=== PATIENT | female | born 1945 | race Caucasian/White ===

== ENCOUNTER 2017-01-24 14:05 | Emergency (ER) | payer MEDICARE, OTHER ==
[2017-01-24 14:19] VITALS: RESP 16; TEMP 98.3
[2017-01-24] MEDS ORDERED: SODIUM CHLORIDE 0.9% 1,000 ML IV STA (14:24)
[2017-01-24] MEDS ORDERED: RX INFO: IV CONTRAST WAS GIVEN 1 EACH MISC MISCELLANE PRN (14:24)
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
[2017-01-24 14:59] LABS: Basophils % (A) 1 %; CH 30.1; CHCM 31.8; Eosinophils # (A) 0.1 k/uL (0-0.7); Eosinophils % (A) 2 %; HCT 39.7 % (34.0-46.0); HDW 2.25; HGB 12.8 gm/dL (11.4-16.0); Luc # (Auto) 0.12; Luc % (Auto) 2; Lymphocytes # (A) 0.9 k/uL (1.0-4.8); Lymphocytes % (A) 12 %; MCH 30.7 pg (25.0-35.0); MCHC 32.3 g/dL (31.0-37.0); Mean Platelet Volume 6.9; Monocytes # (A) 0.3 k/uL (0-1.0); Monocytes % (A) 5 %; Neutrophils # (A) 5.6 k/uL (1.3-7.7); Neutrophils % (A) 79 %; RBC 4.18 m/uL (3.80-5.40); RDW 13.9 % (11.5-15.5); WBC (Perox) 7.12
[2017-01-24 15:08] LABS: Partial Thromboplastin Time 23.2 sec (22.0-30.0); Prothrombin Time 10.3 sec (9.0-12.0)
[2017-01-24 15:15] LABS: Appearance,Urine Cloudy (Clear); Bacteria,Urine Few /hpf; Bilirubin,Urine Negative (Negative); Glucose,Urine (UA) Negative (Negative); Ketones,Urine Negative (Negative); Leukocyte Esterase,Urine Large (Negative); Mucus,Urine Rare /hpf; Nitrite,Urine Positive (Negative); Particle Count 14686; Protein,Urine 1+ (Negative); RBC,Urine 1 /hpf (0-5); Specific Gravity,Urine 1.012 (1.001-1.035); Squamous Epithelial Cell,Urine 1 /hpf (0-4); UA Billing (MACRO vs. MICRO) MICRO; Urobilinogen,Urine <2.0 mg/dL (<2.0); WBC,Urine 36 /hpf (0-5)
[2017-01-24 15:19] LABS: ALT 33 U/L (9-52); AST 19 U/L (14-36); Alkaline Phosphatase 64 U/L (38-126); Anion Gap 13 mmol/L; Blood Urea Nitrogen 17 mg/dL (7-17); Calcium 9.5 mg/dL (8.4-10.2); Carbon Dioxide 25 mmol/L (22-30); Chloride 102 mmol/L (98-107); Glucose 158 mg/dL (74-99); Non-African American GFR(MDRD) >60 (>60 ml/min/1.73 sqM); Potassium 4.3 mmol/L (3.5-5.1); Sodium 140 mmol/L (137-145); Total Bilirubin 0.6 mg/dL (0.2-1.3); Total Protein 7.1 g/dL (6.3-8.2)
[2017-01-24 16:15] VITALS: BP 154/72; PULSE 98
[2017-01-24] MEDS ORDERED: HYDROmorphone 1 MG/ML 1 ML SYRINGE IVP STA (16:15)
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
== END 2017-01-24 16:38 | disposition home or self-care (01) ==
LOC: EC 14:05
DX: S20.02XA Contusion of left breast, initial encounter (principal); E11.9 Type 2 diabetes mellitus without complications; E78.5 Hyperlipidemia, unspecified; I10 Essential (primary) hypertension; Z88.0 Allergy status to penicillin; Z79.82 Long term (current) use of aspirin; Z79.84 Long term (current) use of oral hypoglycemic drugs; Z79.899 Other long term (current) drug therapy; V48.5XXA Car driver injured in noncollision transport accident in traffic accident, initial encounter; Y92.410 Unspecified street and highway as the place of occurrence of the external cause
CPT/HCPCS: 99284; 96374; 96361; 36415; 86900; 86901; 80053; 85025; 85610; 85730; 86850; 81001; 87086; 87077; 87186; 71260; 74177; J1170; Q9967

== ENCOUNTER → 2017-11-02 | Outpatient (CLI) | payer MEDICARE, OTHER ==
[2017-11-02 18:26] LABS: HCT 39.2 % (34.0-46.0); HGB 12.3 gm/dL (11.4-16.0); MCH 29.3 pg (25.0-35.0); MCHC 31.3 g/dL (31.0-37.0); MCV 93.8 fL (80.0-100.0); Mean Platelet Volume 6.8; Platelet Count 280 k/uL (150-450); RBC 4.18 m/uL (3.80-5.40); RDW 13.3 % (11.5-15.5)
[2017-11-02 18:29] LABS: ALT 38 U/L (9-52); AST 16 U/L (14-36); Albumin 3.9 g/dL (3.5-5.0); Alkaline Phosphatase 56 U/L (38-126); Anion Gap 8 mmol/L; Blood Urea Nitrogen 17 mg/dL (7-17); Calcium 10.2 mg/dL (8.4-10.2); Carbon Dioxide 32 mmol/L (22-30); Chloride 100 mmol/L (98-107); Glucose 123 mg/dL (74-99); Potassium 5.1 mmol/L (3.5-5.1); Sodium 140 mmol/L (137-145); Total Bilirubin 0.3 mg/dL (0.2-1.3); Total Protein 6.6 g/dL (6.3-8.2)
== END | disposition home or self-care (01) ==
LOC: LABWHC1 17:05
PROVIDERS: ATTEND Internal Medicine Interventional Cardiology
DX: I35.0 Nonrheumatic aortic (valve) stenosis (principal)
CPT/HCPCS: 36415; 80053; 83880; 85027

== ENCOUNTER 2017-11-09 05:44 | Day surgery (SDC) | payer MEDICARE, OTHER ==
[2017-11-04 08:53] VITALS: BMI 26.4
[2017-11-09] MEDS ORDERED: ATORVASTATIN 80 MG TAB PO STA (05:51)
[2017-11-09] MEDS ORDERED: NITROGLYCERIN SL TABS 0.4 MG TAB SUBLINGUAL PRN (05:51)
[2017-11-09] MEDS ORDERED: ALPRAZolam 0.25 MG TAB PO PRN ×2 (05:51→08:57)
[2017-11-09] MEDS ORDERED: SODIUM CHLORIDE 0.9% 1,000 ML in EMPTY BAG 1 BAG IV ONE (05:51)
[2017-11-09] MEDS ORDERED: ALPRAZolam 0.5 MG TAB PO PRN (05:51)
[2017-11-09] MEDS ORDERED: ASPIRIN 325 MG TAB PO STA (05:51)
[2017-11-09 06:34] VITALS: TEMP 98.5
[2017-11-09 06:39] LABS: Glucose,Whole Blood 168 mg/dL (75-99)
[2017-11-09] MEDS: BENZOCAINE SPRAY 1 CAN MUCOUS MEM ONE ×2 (06:55→07:02)
[2017-11-09] MEDS ORDERED: MIDAZOLAM 2 MG/2 ML VIAL ONE (06:55)
[2017-11-09] MEDS ORDERED: fentaNYL (PF) 50 MCG/ML 2 ML AMP ONE ×2 (06:55→08:01)
[2017-11-09] MEDS ORDERED: SODIUM CHLORIDE 0.9% 1,000 ML IV ONE (07:08)
[2017-11-09] MEDS: MIDAZOLAM 2 MG/2 ML VIAL IVP ONE ×2 (07:09→07:12)
[2017-11-09] MEDS ORDERED: fentaNYL (PF) 50 MCG/ML 2 ML AMP IVP ONE (07:09)
[2017-11-09] MEDS ORDERED: IV FLUID CONTINUATION 850 ML IV ONE (07:35)
[2017-11-09] MEDS ORDERED: LIDOCAINE 2% INJ 20 MG/ML SQ ONE (07:56)
[2017-11-09] MEDS ORDERED: fentaNYL (PF) 50 MCG/ML 2 ML AMP IV ONE (08:02)
[2017-11-09 08:27] LABS: O2 Sat Blood Gas 65.1 %; O2 Sat Blood Gas 66.4 %; O2 Sat Blood Gas 93.3 %
[2017-11-09] MEDS ORDERED: IOHEXOL 350 MG/ML 125ML BOTTLE INJ ONE (08:28)
[2017-11-09] MEDS ORDERED: RX INFO: IV CONTRAST WAS GIVEN 1 EACH MISC MISCELLANE PRN (08:57)
[2017-11-09] MEDS ORDERED: METOPROLOL SUCCINATE (ER) 50 MG TAB.ER.24H PO SCH (09:00)
[2017-11-09] MEDS ORDERED: SODIUM CHLORIDE 0.9% 1,000 ML IV SCH (09:00)
[2017-11-09] MEDS ORDERED: NON-FORMULARY DRUG (Cyanocobalamin (Vitamin B-12) [Vitamin B-12] 1,000 MCG) PO SCH (09:00)
[2017-11-09] MEDS ORDERED: CHOLECALCIFEROL 400 UNIT TAB PO SCH (09:00)
[2017-11-09] MEDS ORDERED: NON-FORMULARY DRUG (Omeprazole 20 MG) PO SCH (09:00)
[2017-11-09] MEDS ORDERED: NON-FORMULARY DRUG (Ubidecarenone [Co Q-10] 100 MG) PO SCH (09:00)
[2017-11-09] MEDS ORDERED: NON-FORMULARY DRUG (Sitagliptin 100 MG) PO SCH (09:00)
[2017-11-09] MEDS ORDERED: NON-FORMULARY DRUG (Aspirin Ec 325 MG) PO SCH (09:00)
[2017-11-09] MEDS ORDERED: LISINOPRIL 20 MG TAB PO SCH (09:00)
[2017-11-09] MEDS ORDERED: HYDROCHLOROTHIAZIDE 12.5 MG CAP PO SCH (09:00)
[2017-11-09] MEDS ORDERED: FERROUS SULFATE 325 MG TAB PO SCH (09:00)
[2017-11-09] MEDS ORDERED: NON-FORMULARY DRUG (Biotin [Biotin] 5,000 MCG) PO SCH (09:00)
--- NOTE | 2017-11-09 09:35 | ECHOT ---
TRANSESOPHAGEAL ECHOCARDIOGRAM INDICATION: Evaluation of aortic valve. PROCEDURE: Explained the procedure to the patient as well as the risks and the complications, blood pressure, heart rate, O2 saturation was monitored. The throat was sprayed with Cetacaine. She received 2 mg intravenous Versed and 25 mcg of intravenous fentanyl. After achieving moderate conscious sedated state, the probe was introduced in the esophagus without difficulty. Images were obtained. Following that, the probe was removed. There was no immediate complication. FINDINGS: Left atrial size is dilated. Left atrial appendage is normal. Left ventricular size and systolic function normal. The mitral valve revealed mild mitral annulus calcification. The aortic valve is a tricuspid valve, heavily calcified. By planimetry, the valve area is about 0.7 centimeter square. The tricuspid valve and pulmonic valve are normal. The descending thoracic aorta appears to be normal. No pericardial effusion was noted. Contrast bubble study revealed no evidence of shunting across the interatrial septum. Doppler pulse wave and color Doppler obtained revealed moderate mitral with mild tricuspid regurgitation. The peak gradient across the aortic valve was 41 mmHg with a mean of 25 mmHg. There was trace pulmonic regurgitation and mild aortic regurgitation. There was no shunting across the interatrial septum. CONCLUSION: 1. Dilated left atrium and normal appearance of left atrial appendage. 2. Normal left ventricular size and systolic function. 3. Tricuspid aortic valve, heavily calcified with a aortic valve area of 0.7 centimeter square and a mean gradient of 25 mmHg and mild aortic regurgitation. 4. Mitral annulus calcification with moderate mitral regurgitation. 5. Mild tricuspid regurgitation with trace pulmonic regurgitation. 6. No evidence of shunting across the interatrial septum. MMODL / IJN: [id number] /
--- NOTE | 2017-11-09 10:05 | CC ---
CARDIAC CATHETERIZATION REPORT Mrs. Quezada is a 72-year-old female with a history of hypertension, hyperlipidemia and diabetes mellitus, as well as history of aortic valve disease , who has been complaining of progressive symptoms of dyspnea on exertion with fatigue and in view of that recommendation was made regarding cardiac catheterization. The procedure as well as the risks and complications were discussed with the patient who is in full understanding and agreement. PROCEDURE: Patient was brought to the director of cath lab in a fasting semi-sedated state after receiving fentanyl and Benadryl and after achieving. Moderate conscious sedated state. Using Xylocaine anesthesia in the Seldinger technique, a 6-Tuvaluan sheath was introduced in the right femoral artery and an 8-[place] sheath, right femoral vein. Right heart catheterization was performed using [place]-Ky catheter. Multiple samples were obtained. Cardiac output by thermodilution was calculated. Following that, a selective right and left coronary angiography performed using 6-Tu[place]uan 4 bend right and left Jose D catheter. Multiple views of the coronary artery including hemiaxial views were obtained. Following that, a 6-Tu[place] tight pigtail catheter introduced in the left ventricle and a 30-degree DRIVER view of the left ventricle was obtained. Following that, the catheter and sheaths were removed. Hemostasis was obtained with deployment of an Angio-Seal in the right femoral artery and compression of the right femoral vein. There was no immediate complication. FINDINGS: FLUOROSCOPY: There was calcification involving the aortic valve. HEMODYNAMICS: Pulmonary artery systolic pressure of 36 with a diastolic of 14 and a mean of 25 mmHg. Pulmonary capillary wedge pressure A-wave of 14, V-wave of 20 with a mean of 14 mmHg. Right ventricular systolic pressure of 40 with an end- diastolic of 6 mmHg. Right atrium A-wave of 4, V-wave of 3 with a mean of 3 mmHg. Left ventricular end-diastolic pressure of 24 mmHg. Peak gradient across the aortic valve of 30 mmHg. Cardiac output by thermal 4.7 L/minute and by Chaparro 3.6 L/minute. Right atrium saturation 65%. Pulmonary artery saturation 66%. Femoral artery saturation of 93%. Aortic valve area calculated at 0.54. CORONARY: LEFT MAIN: This is a large size vessel bifurcating in left circumflex and left anterior descending artery. Left main coronary artery is without any significant obstructive coronary artery disease. LEFT ANTERIOR DESCENDING ARTERY: This is a large size vessel reaching toward the apex with a wraparound apex segment giving rise to a moderate small diagonal branch. Left anterior descending artery as well as branches have no evidence of obstructive coronary artery disease. LEFT CIRCUMFLEX: This is a nondominant vessel giving rise to 2 obtuse marginal branches. The left circumflex as well as branches have no evidence of obstructive coronary artery disease. RIGHT CORONARY ARTERY: This is a large dominant vessel bifurcating into PDA and posterolateral segment and branches. The right coronary artery as well as branches have no evidence of high-grade stenosis. LEFT VENTRICULOGRAM: Left ventriculogram is performed 30-degree DRIVER view and revealed normal left ventricular size and systolic function, ejection fraction 60%. There was 1 to 2+ mitral regurgitation. CONCLUSION: 1. Normal coronary arteries. 2. Severe aortic stenosis. RECOMMENDATION: In view of finding anatomy, I recommend proceed with evaluation for possible aortic valve replacement. Those findings and recommendations were discussed with the patient and her family who are in full understanding and agreement. Duration of procedure 35 minutes. MMODL / IJN: [id number] / JANETT
--- NOTE | 2017-11-09 10:08 | LTR ---
November 09, 2017 RE: Charu Pinedarmerhorn Dear Dr. Townsend: I had the opportunity to perform cardiac catheterization on Mrs. Quezada at [facility] on the 09 of November and a full copy of the procedure note will be forwarded to you. In brief, she was found to have no evidence of obstructive coronary artery disease with evidence of severe aortic stenosis. In view of that, I have recommend proceeding with evaluation for aortic valve replacement. I will keep you updated on her care. Thank you again for allowing me the opportunity to participate in her care. Please feel free to call for any questions. Sincerely yours, MD KERWIN MillerL / CAROLN: [id number] /
[2017-11-09 11:48] VITALS: RESP 18
[2017-11-09] MEDS ORDERED: NON-FORMULARY DRUG (Calcium Carbonate [Calcium] 1,200 MG) PO SCH (12:00)
[2017-11-09] MEDS ORDERED: CRANBERRY PO SCH (12:00)
[2017-11-09 12:06] LABS: Glucose,Whole Blood 189 mg/dL (75-99)
[2017-11-09 16:10] VITALS: BP 120/60; PULSE 80
[2017-11-09] MEDS ORDERED: ATORVASTATIN 40 MG TAB PO SCH (21:00)
== END 2017-11-09 15:00 | disposition home or self-care (01) ==
LOC: CATHCVL 05:44
PROVIDERS: ATTEND Internal Medicine Interventional Cardiology
DX: I08.3 Combined rheumatic disorders of mitral, aortic and tricuspid valves (principal); I10 Essential (primary) hypertension; E78.2 Mixed hyperlipidemia; E11.9 Type 2 diabetes mellitus without complications; Z79.84 Long term (current) use of oral hypoglycemic drugs; Z79.82 Long term (current) use of aspirin; Z79.899 Other long term (current) drug therapy; Z88.0 Allergy status to penicillin
CPT/HCPCS: 93312; 93320; 93325; 93460; 85018; 82810; C1760; C1769 ×3; C1894 ×2; J2001; J2250; J3010; Q9967

== ENCOUNTER 2018-02-03 15:49 | Emergency (ER) | payer MEDICARE, OTHER ==
[2018-02-03] MEDS ORDERED: SODIUM CHLORIDE 0.9% 500 ML IV STA (16:54)
[2018-02-03] MEDS ORDERED: ONDANSETRON 4 MG/2 ML VIAL IVP STA (16:54)
[2018-02-03 17:12] LABS: Basophils % (A) 0 %; Eosinophils # (A) 0.2 k/uL (0-0.7); Eosinophils % (A) 2 %; HCT 30.3 % (34.0-46.0); HGB 9.9 gm/dL (11.4-16.0); Lymphocytes % (A) 11 %; MCH 29.9 pg (25.0-35.0); MCHC 32.7 g/dL (31.0-37.0); MCV 91.4 fL (80.0-100.0); Mean Platelet Volume 6.7; Monocytes # (A) 0.5 k/uL (0-1.0); Monocytes % (A) 5 %; Neutrophils # (A) 7.1 k/uL (1.3-7.7); Neutrophils % (A) 80 %; Platelet Count 426 k/uL (150-450); RBC 3.31 m/uL (3.80-5.40); RDW 14.7 % (11.5-15.5); WBC 8.9 k/uL (3.8-10.6)
[2018-02-03 17:32] LABS: INR 1.1 (<1.2); Partial Thromboplastin Time 22.2 sec (22.0-30.0); Prothrombin Time 10.4 sec (9.0-12.0)
--- NOTE | 2018-02-03 17:48 | XR ---
EXAMINATION TYPE: XR KUB DATE OF EXAM: 02/03/2018 COMPARISON: NONE HISTORY: Vomiting TECHNIQUE: 2 views FINDINGS: There is no sign of intestinal obstruction or pneumoperitoneum. Fecal pattern is normal. Th ere is no sign of a mass. There are no pathologic calcifications over the kidneys. Lung bases are junito ar. There is a right hip prosthesis. IMPRESSION: Nonacute abdomen.
[2018-02-03] MEDS ORDERED: ACETAMINOPHEN TAB 500 MG TAB PO STA (17:53)
[2018-02-03 17:56] LABS: Appearance,Urine Clear (Clear); Bilirubin,Urine Negative (Negative); Blood,Urine Negative (Negative); Color,Urine Light Yellow; Glucose,Urine (UA) Negative (Negative); Ketones,Urine Negative (Negative); Leukocyte Esterase,Urine Negative (Negative); Nitrite,Urine Negative (Negative); Protein,Urine Negative (Negative); Specific Gravity,Urine 1.005 (1.001-1.035); Urobilinogen,Urine <2.0 mg/dL (<2.0)
[2018-02-03] MEDS ORDERED: SODIUM CHLORIDE 0.9% 1,000 ML IV SCH (18:15)
[2018-02-03 18:51] LABS: ALT 36 U/L (9-52); AST 17 U/L (14-36); Albumin 3.9 g/dL (3.5-5.0); Alkaline Phosphatase 73 U/L (38-126); Anion Gap 17 mmol/L; Blood Urea Nitrogen 18 mg/dL (7-17); Calcium 9.6 mg/dL (8.4-10.2); Carbon Dioxide 30 mmol/L (22-30); Chloride 93 mmol/L (98-107); Glucose 141 mg/dL (74-99); Potassium 4.3 mmol/L (3.5-5.1); Sodium 140 mmol/L (137-145); Total Bilirubin 0.4 mg/dL (0.2-1.3); Total Protein 6.6 g/dL (6.3-8.2)
--- NOTE | 2018-02-03 18:51 | ED ---
Nausea/Vomiting/Diarrhea HPI - General Chief complaint: Nausea/Vomiting/Diarrhea Stated complaint: Dark Stools Time Seen by Provider: 02/03/18 16:23 Source: patient Mode of arrival: ambulatory Limitations: no limitations - History of Present Illness Initial comments: Patient is a 72-year-old female presenting for nausea and vomiting. She states that she had open-heart surgery on January 31 at [facility]. She was discharged around February 01 and since that time, she has had intermittent nausea and vomiting. She denies any abdominal pain or urinary symptoms. However, she admits to slightly black diarrhea but she has been taking iron. She denies any chest pain or shortness of breath as well. - Related Data Home Medications Medication Instructions Recorded Confirmed Aspirin EC [Ecotrin] 325 mg PO DAILY 01/24/17 02/03/18 Atorvastatin [Lipitor] 40 mg PO HS 01/24/17 02/03/18 Omeprazole [PriLOSEC] 20 mg PO DAILY 01/24/17 02/03/18 metFORMIN HCL 1,000 mg PO BID 01/24/17 02/03/18 sitaGLIPtin [Januvia] 100 mg PO DAILY 01/24/17 02/03/18 Calcium Carbonate [Calcium] 1,200 mg PO DAILY@1200 11/04/17 02/03/18 Cholecalciferol [Vitamin D3] 400 unit PO DAILY 11/04/17 02/03/18 Cyanocobalamin (Vitamin B-12) 1,000 mcg PO DAILY 11/04/17 02/03/18 [Vitamin B-12] Ferrous Sulfate [Feosol] 325 mg PO AC-BID 11/04/17 02/03/18 Amiodarone [Cordarone] 200 mg PO DAILY 02/03/18 02/03/18 Ascorbic Acid [Vitamin C] 250 mg PO BID 02/03/18 02/03/18 Docusate [Colace] 100 mg PO BID 02/03/18 02/03/18 Furosemide [Lasix] 40 mg PO DAILY 02/03/18 02/03/18 L.acidoph,Paracasei, B.lactis 1 cap PO DAILY 02/03/18 02/03/18 [Probiotic] Metoprolol Tartrate [Lopressor] 25 mg PO BID 02/03/18 02/03/18 Potassium Chloride [Klor-Con 10] 10 meq PO DAILY 02/03/18 02/03/18 oxyCODONE HCL [Roxicodone] 5 mg PO Q4-6H PRN 02/03/18 02/03/18 Previous Rx's Medication Instructions Recorded Ondansetron Odt [Zofran Odt] 4 mg PO Q12HR PRN #10 tab 02/03/18 Allergies Allergy/AdvReac Type Severity Reaction Status Date / Time Penicillins Allergy Rash/Hives Verified 02/03/18 16:39 Review of Systems ROS Statement: Those systems with pertinent positive or pertinent negative responses have been documented in the HPI. Constitutional: Negative for chills, fatigue and fever. HENT: Negative for congestion. Respiratory: Negative for chest tightness, shortness of breath and wheezing. Cardiovascular: Negative for chest pain and palpitations. Gastrointestinal: Negative for abdominal pain. Positive for diarrhea, nausea and vomiting. Genitourinary: Negative for dysuria. Musculoskeletal: Negative for back pain, neck pain and neck stiffness. Skin: Negative for color change. Neurological: Negative for dizziness, speech difficulty, weakness and light- headedness. Psychiatric/Behavioral: Negative for agitation and confusion. The patient is not nervous/anxious. ROS Other: All systems not noted in ROS Statement are negative. Past Medical History Past Medical History: Coronary Artery Disease (CAD), Diabetes Mellitus, GERD/ Reflux, Hyperlipidemia, Hypertension, Osteoarthritis (OA) Additional Past Medical History / Comment(s): heart murmer, born with bicuspid aorta, diarrhea, "leaky bladder" History of Any Multi-Drug Resistant Organisms: None Reported Past Surgical History: Bladder Surgery, Cardiac Valve Replacement, Heart Catheterization, Hysterectomy, Joint Replacement, Tubal Ligation Additional Past Surgical History / Comment(s): rt hip replacement, HARJINDER, bladder suspension x 2, Past Anesthesia/Blood Transfusion Reactions: Previous Problems w/ Anesthesia, Motion Sickness Additional Past Anesthesia/Blood Transfusion Reaction / Comment(s): "long time coming out" Past Psychological History: Anxiety Smoking Status: Never smoker Past Alcohol Use History: None Reported Past Drug Use History: Unable to Obtain - Past Family History Father Family Medical History: Cancer Daughter(s) Family Medical History: Cancer General Exam - General Exam Comments Initial Comments: Physical Exam Constitutional: Pt is oriented to person, place, and time. Pt appears well- developed and well-nourished. No distress. HENT: Head: Normocephalic and atraumatic. Eyes: EOM are normal. Neck: Normal range of motion. Neck supple. Cardiovascular: Normal rate, regular rhythm, S1 normal, S2 normal and normal heart sounds. Exam reveals no gallop and no friction rub. No murmur heard. Pulmonary/Chest: Effort normal and breath sounds normal. No tachypnea and no bradypnea. No respiratory distress. No wheezes or rales noted. Abdominal: Soft. Bowel sounds are normal. Pt exhibits no shifting dullness, no distension, no pulsatile liver, no fluid wave, no abdominal bruit and no ascites. There is no tenderness. There is no rigidity, no rebound, no guarding, no tenderness at McBurney's point and negative Montero's sign. Musculoskeletal: Normal range of motion. Surgical incision on chest clean dry and intact Neurological: Pt is alert and oriented to person, place, and time. No cranial nerve deficit. Skin: Skin is warm and dry. No rash noted. Pt is not diaphoretic. No erythema. No pallor. Psychiatric: Pt has a normal mood and affect. Pt behavior is normal. Thought content normal. Limitations: no limitations Course Vital Signs 02/03/18 02/03/18 02/03/18 15:50 16:50 17:49 Temperature 97.7 F Pulse Rate 96 93 89 Respiratory 18 17 17 Rate Blood Pressure 140/82 134/89 129/67 O2 Sat by Pulse 98 99 98 Oximetry 02/03/18 02/03/18 18:47 20:11 Temperature Pulse Rate 85 90 Respiratory 17 18 Rate Blood Pressure 131/65 115/54 O2 Sat by Pulse 95 96 Oximetry - Reevaluation(s) Reevaluation #1: 02/03/18 19:46 Laboratory studies revealed serum magnesium was significantly low at 1.0 with QTC showed no increase. Additionally, lactic acid was 2.5 which the patient was given additional fluids. Patient has been unable to provide a urine sample but hemoglobin was noted to be stable at 9.9. Medical Decision Making - Medical Decision Making Initial laboratory studies revealed that lactic acid was 2.5. Therefore the patient was given 1 L of fluid and by mouth challenge. She was able to successfully eat a sandwich as well as a drink and repeat lactic acid was improved at 0.9. Additionally, EKG was performed and showed no prolongation of the QTC. Troponin was also noted to be less than 0.04. Patient states that she feels much better after treatment. Extensive discussion was had with disposition with the patient as well as her nephew who is a pharmacist. All parties agreed that because the patient was feeling better and lactic acid normalize, it may be safe to discharge the patient home. They were in agreement. Additionally, magnesium was noted to be low at 1.0 and the patient was given 2 g of magnesium. Case is discussed with Dr. Jara from [facility] after the initial blood work was resulted and he advised that based on those findings, there is no need to transfer the patient. Additionally, C. diff and stool cultures were ordered but unable to be obtained as the patient could not provide a stool sample.Explained all labs and diagnostic test results and that we will discharge the patient home and patient is to follow up with PCP in 1-2 days and return to the ED if symptoms worsen. Pt is agreeable to plan. - Lab Data Result diagrams: 02/03/18 16:42 02/03/18 18:40 Lab Results 02/03/18 02/03/18 02/03/18 Range/Units 16:42 16:42 16:42 WBC 8.9 (3.8-10.6) k/uL RBC 3.31 L (3.80-5.40) m/uL Hgb 9.9 L (11.4-16.0) gm/dL Hct 30.3 L (34.0-46.0) % MCV 91.4 (80.0-100.0) fL MCH 29.9 (25.0-35.0) pg MCHC 32.7 (31.0-37.0) g/dL RDW 14.7 (11.5-15.5) % Plt Count 426 (150-450) k/uL Neutrophils % 80 % Lymphocytes % 11 % Monocytes % 5 % Eosinophils % 2 % Basophils % 0 % Neutrophils # 7.1 (1.3-7.7) k/uL Lymphocytes # 1.0 (1.0-4.8) k/uL Monocytes # 0.5 (0-1.0) k/uL Eosinophils # 0.2 (0-0.7) k/uL Basophils # 0.0 (0-0.2) k/uL PT 10.4 (9.0-12.0) sec INR 1.1 (<1.2) APTT 22.2 (22.0-30.0) sec Sodium (137-145) mmol/L Potassium (3.5-5.1) mmol/L Chloride (98-107) mmol/L Carbon Dioxide (22-30) mmol/L Anion Gap mmol/L BUN (7-17) mg/dL Creatinine (0.52-1.04) mg/dL Est GFR (CKD-EPI)AfAm (>60 ml/min/1.73 sqM) Est GFR (CKD-EPI)NonAf (>60 ml/min/1.73 sqM) Glucose (74-99) mg/dL Lactic Ac Sepsis Rflx Plasma Lactic Acid Franklin (0.7-2.0) mmol/L Calcium (8.4-10.2) mg/dL Magnesium (1.6-2.3) mg/dL Total Bilirubin (0.2-1.3) mg/dL AST (14-36) U/L ALT (9-52) U/L Alkaline Phosphatase (38-126) U/L Troponin I (0.000-0.034) ng/mL Total Protein (6.3-8.2) g/dL Albumin (3.5-5.0) g/dL Lipase (23-300) U/L Urine Color Urine Appearance (Clear) Urine pH (5.0-8.0) Ur Specific [place] (1.001-1.035) Urine Protein (Negative) Urine Glucose (UA) (Negative) Urine Ketones (Negative) Urine Blood (Negative) Urine Nitrite (Negative) Urine Bilirubin (Negative) Urine Urobilinogen (<2.0) mg/dL Ur Leukocyte Esterase (Negative) Blood Type A Positive Blood Type Recheck No Antibody Screen NEGATIVE Spec Expiration Date 02/06/2018 - 234102/03/18 02/03/18 02/03/18 Range/Units 16:42 16:42 17:03 WBC (3.8-10.6) k/uL RBC (3.80-5.40) m/uL Hgb (11.4-16.0) gm/dL Hct (34.0-46.0) % MCV (80.0-100.0) fL MCH (25.0-35.0) pg MCHC (31.0-37.0) g/dL RDW (11.5-15.5) % Plt Count (150-450) k/uL Neutrophils % % Lymphocytes % % Monocytes % % Eosinophils % % Basophils % % Neutrophils # (1.3-7.7) k/uL Lymphocytes # (1.0-4.8) k/uL Monocytes # (0-1.0) k/uL Eosinophils # (0-0.7) k/uL Basophils # (0-0.2) k/uL PT (9.0-12.0) sec INR (<1.2) APTT (22.0-30.0) sec Sodium (137-145) mmol/L Potassium (3.5-5.1) mmol/L Chloride (98-107) mmol/L Carbon Dioxide (22-30) mmol/L Anion Gap mmol/L BUN (7-17) mg/dL Creatinine (0.52-1.04) mg/dL Est GFR (CKD-EPI)AfAm (>60 ml/min/1.73 sqM) Est GFR (CKD-EPI)NonAf (>60 ml/min/1.73 sqM) Glucose (74-99) mg/dL Lactic Ac Sepsis Rflx Plasma Lactic Acid Franklin 2.5 H* (0.7-2.0) mmol/L Calcium (8.4-10.2) mg/dL Magnesium 1.0 L* (1.6-2.3) mg/dL Total Bilirubin (0.2-1.3) mg/dL AST (14-36) U/L ALT (9-52) U/L Alkaline Phosphatase (38-126) U/L Troponin I 0.037 H* (0.000-0.034) ng/mL Total Protein (6.3-8.2) g/dL Albumin (3.5-5.0) g/dL Lipase 107 (23-300) U/L Urine Color Urine Appearance (Clear) Urine pH (5.0-8.0) Ur Specific [place] (1.001-1.035) Urine Protein (Negative) Urine Glucose (UA) (Negative) Urine Ketones (Negative) Urine Blood (Negative) Urine Nitrite (Negative) Urine Bilirubin (Negative) Urine Urobilinogen (<2.0) mg/dL Ur Leukocyte Esterase (Negative) Blood Type Blood Type Recheck Antibody Screen Spec Expiration Date 02/03/18 02/03/18 02/03/18 Range/Units 17:05 17:32 18:40 WBC (3.8-10.6) k/uL RBC (3.80-5.40) m/uL Hgb (11.4-16.0) gm/dL Hct (34.0-46.0) % MCV (80.0-100.0) fL MCH (25.0-35.0) pg MCHC (31.0-37.0) g/dL RDW (11.5-15.5) % Plt Count (150-450) k/uL Neutrophils % % Lymphocytes % % Monocytes % % Eosinophils % % Basophils % % Neutrophils # (1.3-7.7) k/uL Lymphocytes # (1.0-4.8) k/uL Monocytes # (0-1.0) k/uL Eosinophils # (0-0.7) k/uL Basophils # (0-0.2) k/uL PT (9.0-12.0) sec INR (<1.2) APTT (22.0-30.0) sec Sodium 140 (137-145) mmol/L Potassium 4.3 (3.5-5.1) mmol/L Chloride 93 L (98-107) mmol/L Carbon Dioxide 30 (22-30) mmol/L Anion Gap 17 mmol/L BUN 18 H (7-17) mg/dL Creatinine 0.76 (0.52-1.04) mg/dL Est GFR (CKD-EPI)AfAm >90 (>60 ml/min/1.73 sqM) Est GFR (CKD-EPI)NonAf 79 (>60 ml/min/1.73 sqM) Glucose 141 H (74-99) mg/dL Lactic Ac Sepsis Rflx Y Plasma Lactic Acid Franklin (0.7-2.0) mmol/L Calcium 9.6 (8.4-10.2) mg/dL Magnesium (1.6-2.3) mg/dL Total Bilirubin 0.4 (0.2-1.3) mg/dL AST 17 (14-36) U/L ALT 36 (9-52) U/L Alkaline Phosphatase 73 (38-126) U/L Troponin I (0.000-0.034) ng/mL Total Protein 6.6 (6.3-8.2) g/dL Albumin 3.9 (3.5-5.0) g/dL Lipase (23-300) U/L Urine Color Light Yellow Urine Appearance Clear (Clear) Urine pH 5.0 (5.0-8.0) Ur Specific [place] 1.005 (1.001-1.035) Urine Protein Negative (Negative) Urine Glucose (UA) Negative (Negative) Urine Ketones Negative (Negative) Urine Blood Negative (Negative) Urine Nitrite Negative (Negative) Urine Bilirubin Negative (Negative) Urine Urobilinogen <2.0 (<2.0) mg/dL Ur Leukocyte Esterase Negative (Negative) Blood Type Blood Type Recheck Antibody Screen Spec Expiration Date 02/03/18 Range/Units 21:05 WBC (3.8-10.6) k/uL RBC (3.80-5.40) m/uL Hgb (11.4-16.0) gm/dL Hct (34.0-46.0) % MCV (80.0-100.0) fL MCH (25.0-35.0) pg MCHC (31.0-37.0) g/dL RDW (11.5-15.5) % Plt Count (150-450) k/uL Neutrophils % % Lymphocytes % % Monocytes % % Eosinophils % % Basophils % % Neutrophils # (1.3-7.7) k/uL Lymphocytes # (1.0-4.8) k/uL Monocytes # (0-1.0) k/uL Eosinophils # (0-0.7) k/uL Basophils # (0-0.2) k/uL PT (9.0-12.0) sec INR (<1.2) APTT (22.0-30.0) sec Sodium (137-145) mmol/L Potassium (3.5-5.1) mmol/L Chloride (98-107) mmol/L Carbon Dioxide (22-30) mmol/L Anion Gap mmol/L BUN (7-17) mg/dL Creatinine (0.52-1.04) mg/dL Est GFR (CKD-EPI)AfAm (>60 ml/min/1.73 sqM) Est GFR (CKD-EPI)NonAf (>60 ml/min/1.73 sqM) Glucose (74-99) mg/dL Lactic Ac Sepsis Rflx Plasma Lactic Acid Franklin 0.9 (0.7-2.0) mmol/L Calcium (8.4-10.2) mg/dL Magnesium (1.6-2.3) mg/dL Total Bilirubin (0.2-1.3) mg/dL AST (14-36) U/L ALT (9-52) U/L Alkaline Phosphatase (38-126) U/L Troponin I (0.000-0.034) ng/mL Total Protein (6.3-8.2) g/dL Albumin (3.5-5.0) g/dL Lipase (23-300) U/L Urine Color Urine Appearance (Clear) Urine pH (5.0-8.0) Ur Specific [place] (1.001-1.035) Urine Protein (Negative) Urine Glucose (UA) (Negative) Urine Ketones (Negative) Urine Blood (Negative) Urine Nitrite (Negative) Urine Bilirubin (Negative) Urine Urobilinogen (<2.0) mg/dL Ur Leukocyte Esterase (Negative) Blood Type Blood Type Recheck Antibody Screen Spec Expiration Date - EKG Data EKG Comments: EKG showed normal sinus rhythm with a rate of 89 bpm, AR interval 158, QRS 80, QTC 450 Disposition Clinical Impression: Nausea and vomiting Disposition: HOME SELF-CARE Condition: Good Prescriptions: Ondansetron Odt [Zofran Odt] 4 mg PO Q12HR PRN #10 tab PRN Reason: Nausea Is patient prescribed a controlled substance at d/c from ED?: No Referrals: Grant Townsend MD [Primary Care Provider] - 1-2 days Tati Higgins MD [REFERRING] - 1-2 days Time of Disposition: 22:03
[2018-02-03] MEDS: MAGNESIUM SULFATE-D5W PMX 1 GM in DEXTROSE/WATER 1 100ML.BAG IVPB SCH ×2 (19:24→20:58)
[2018-02-03] MEDS ORDERED: SODIUM CHLORIDE 0.9% 500 ML IV ONE (19:41)
[2018-02-03 21:47] VITALS: RESP 18
[2018-02-03 22:28] VITALS: BP 112/54; PULSE 82; TEMP 97.4
== END 2018-02-03 22:28 | disposition home or self-care (01) ==
LOC: EC 15:49
DX: R11.2 Nausea with vomiting, unspecified (principal); R19.7 Diarrhea, unspecified; E83.42 Hypomagnesemia; I25.10 Atherosclerotic heart disease of native coronary artery without angina pectoris; E11.9 Type 2 diabetes mellitus without complications; K21.9 Gastro-esophageal reflux disease without esophagitis; E78.5 Hyperlipidemia, unspecified; I10 Essential (primary) hypertension; Z95.2 Presence of prosthetic heart valve; Z95.818 Presence of other cardiac implants and grafts; Z79.82 Long term (current) use of aspirin; Z79.84 Long term (current) use of oral hypoglycemic drugs; Z79.899 Other long term (current) drug therapy; Z88.0 Allergy status to penicillin; Z96.641 Presence of right artificial hip joint
CPT/HCPCS: 36415; 93005; 86900; 86901; 80053; 83605; 83690; 83735; 84484; 85025; 85610; 85730; 86850; 81003; 74018; 99284; 96365; 96366 ×2; 96375; 96361; J2405; J3475

== ENCOUNTER → 2018-08-16 | Outpatient (CLI) | payer MEDICARE, OTHER ==
[2018-08-17 04:59] LABS: Gliadin AB IgA, Unit <0.2 U/mL
== END | disposition home or self-care (01) ==
LOC: LABWHC1 15:44
PROVIDERS: ATTEND Internal Medicine Gastroenterology
DX: R19.4 Change in bowel habit (principal)
CPT/HCPCS: 36415; 83516

== ENCOUNTER 2020-11-20 20:47 | Inpatient (IN) | payer MEDICARE, OTHER ==
--- NOTE | 2020-11-20 21:07 | ED ---
General Adult HPI - General Chief complaint: Arrhythmia/Palpitations Stated complaint: SOB Time Seen by Provider: 11/20/20 20:58 Source: patient, family, RN notes reviewed Mode of arrival: ambulatory Limitations: no limitations - History of Present Illness Initial comments: Patient is a pleasant 75-year-old female presenting to the emergency Department with complaints of palpitations. Onset of symptoms was less than a week ago. Patient saw her doctor 3 days ago and was diagnosed with atrophic ablation. Patient was told it on Xarelto and amiodarone. Patient also had her metoprolol increased. Patient has continued palpitations and increased heart rate. Patient is now having some shortness of breath and tightness of her chest. Patient has noticed some mild edema. - Related Data Home Medications Medication Instructions Recorded Confirmed Aspirin EC [Ecotrin] 325 mg PO DAILY 01/24/17 02/03/18 Atorvastatin [Lipitor] 40 mg PO HS 01/24/17 02/03/18 Omeprazole [PriLOSEC] 20 mg PO DAILY 01/24/17 02/03/18 metFORMIN HCL 1,000 mg PO BID 01/24/17 02/03/18 sitaGLIPtin [Januvia] 100 mg PO DAILY 01/24/17 02/03/18 Calcium Carbonate [Calcium] 1,200 mg PO DAILY@1200 11/04/17 02/03/18 Cholecalciferol [Vitamin D3] 400 unit PO DAILY 11/04/17 02/03/18 Cyanocobalamin (Vitamin B-12) 1,000 mcg PO DAILY 11/04/17 02/03/18 [Vitamin B-12] Ferrous Sulfate [Feosol] 325 mg PO AC-BID 11/04/17 02/03/18 Amiodarone [Cordarone] 200 mg PO DAILY 02/03/18 02/03/18 Ascorbic Acid [Vitamin C] 250 mg PO BID 02/03/18 02/03/18 Docusate [Colace] 100 mg PO BID 02/03/18 02/03/18 Furosemide [Lasix] 40 mg PO DAILY 02/03/18 02/03/18 L.acidoph,Paracasei, B.lactis 1 cap PO DAILY 02/03/18 02/03/18 [Probiotic] Metoprolol Tartrate [Lopressor] 25 mg PO BID 02/03/18 02/03/18 Potassium Chloride [Klor-Con 10] 10 meq PO DAILY 02/03/18 02/03/18 oxyCODONE HCL [Roxicodone] 5 mg PO Q4-6H PRN 02/03/18 02/03/18 Previous Rx's Medication Instructions Recorded Ondansetron Odt [Zofran Odt] 4 mg PO Q12HR PRN #10 tab 02/03/18 Allergies Allergy/AdvReac Type Severity Reaction Status Date / Time Penicillins Allergy Rash/Hives Verified 11/20/20 20:53 Review of Systems ROS Statement: Those systems with pertinent positive or pertinent negative responses have been documented in the HPI. ROS Other: All systems not noted in ROS Statement are negative. Constitutional: Denies: fever Eyes: Denies: eye pain ENT: Denies: ear pain Respiratory: Reports: as per HPI, dyspnea. Denies: cough Cardiovascular: Reports: palpitations. Denies: chest pain Endocrine: Reports: fatigue Gastrointestinal: Denies: abdominal pain Genitourinary: Denies: dysuria Musculoskeletal: Denies: back pain Skin: Denies: rash Past Medical History Past Medical History: Atrial Fibrillation, Coronary Artery Disease (CAD), Diabetes Mellitus, GERD/Reflux, Hyperlipidemia, Hypertension, Osteoarthritis (OA) Additional Past Medical History / Comment(s): heart murmur, born with bicuspid aorta, diarrhea, "leaky bladder" History of Any Multi-Drug Resistant Organisms: None Reported Past Surgical History: Bladder Surgery, Cardiac Valve Replacement, Heart Catheterization, Hysterectomy, Joint Replacement, Tubal Ligation Additional Past Surgical History / Comment(s): rt hip replacement, HARJINDER, bladder suspension x 2, Past Anesthesia/Blood Transfusion Reactions: Previous Problems w/ Anesthesia, Motion Sickness Additional Past Anesthesia/Blood Transfusion Reaction / Comment(s): "long time coming out" Past Psychological History: Anxiety Past Alcohol Use History: None Reported Past Drug Use History: Unable to Obtain - Past Family History Father Family Medical History: Cancer Daughter(s) Family Medical History: Cancer General Exam Limitations: no limitations General appearance: alert, in no apparent distress Head exam: Present: normocephalic Eye exam: Present: normal appearance Respiratory exam: Present: normal lung sounds bilaterally Cardiovascular Exam: Present: tachycardia, irregular rhythm Expanded Peripheral pulses: 2+: Radial (R), Radial (L), Dorsalis Pedis (R), Dorsalis Pedis (L) GI/Abdominal exam: Present: soft. Absent: tenderness Extremities exam: Present: pedal edema (Trace bilateral). Absent: calf tenderness Neurological exam: Present: alert Psychiatric exam: Present: normal affect, normal mood Skin exam: Present: normal color Course Vital Signs 11/20/20 20:49 Temperature 98.0 F Pulse Rate 124 H Respiratory 18 Rate Blood Pressure 167/114 O2 Sat by Pulse 98 Oximetry EKG Findings - EKG Comments: EKG Findings:: Neuro complex tachycardia with a rate of 123. [place] 170. QRS 80. QT 3 or 4. QTC 435. Left axis. Septal Q waves. Lateral ST depression. Inferior T wave inversion. Medical Decision Making - Medical Decision Making Patient reevaluated and updated. Heart rate remains 120 5P remain magnesium is low and replacement has been ordered. Case was discussed with Dr. Leiva, who will admit covering for Dr. Townsend. - Lab Data Result diagrams: 11/20/20 21:25 11/20/20 21:25 Lab Results 11/20/20 11/20/20 11/20/20 Range/Units 21:25 21:25 21:25 WBC 8.1 (3.8-10.6) k/uL RBC 4.40 (3.80-5.40) m/uL Hgb 13.3 (11.4-16.0) gm/dL Hct 41.1 (34.0-46.0) % MCV 93.4 (80.0-100.0) fL MCH 30.2 (25.0-35.0) pg MCHC 32.3 (31.0-37.0) g/dL RDW 13.9 (11.5-15.5) % Plt Count 230 (150-450) k/uL MPV 7.1 Neutrophils % 76 % Lymphocytes % 16 % Monocytes % 5 % Eosinophils % 2 % Basophils % 1 % Neutrophils # 6.1 (1.3-7.7) k/uL Lymphocytes # 1.3 (1.0-4.8) k/uL Monocytes # 0.4 (0-1.0) k/uL Eosinophils # 0.2 (0-0.7) k/uL Basophils # 0.1 (0-0.2) k/uL PT 12.6 H (9.0-12.0) sec INR 1.2 H (<1.2) APTT 27.4 (22.0-30.0) sec Sodium 138 (137-145) mmol/L Potassium 4.7 (3.5-5.1) mmol/L Chloride 102 (98-107) mmol/L Carbon Dioxide 24 (22-30) mmol/L Anion Gap 12 mmol/L BUN 20 H (7-17) mg/dL Creatinine 0.76 (0.52-1.04) mg/dL Est GFR (CKD-EPI)AfAm 89 (>60 ml/min/1.73 sqM) Est GFR (CKD-EPI)NonAf 77 (>60 ml/min/1.73 sqM) Glucose 202 H (74-99) mg/dL Calcium 9.5 (8.4-10.2) mg/dL Magnesium 1.1 L (1.6-2.3) mg/dL Total Bilirubin 0.4 (0.2-1.3) mg/dL AST 102 H (14-36) U/L ALT 194 H (4-34) U/L Alkaline Phosphatase 73 (38-126) U/L Troponin I (0.000-0.034) ng/mL NT-Pro-B Natriuret Pep pg/mL Total Protein 7.1 (6.3-8.2) g/dL Albumin 4.3 (3.5-5.0) g/dL TSH 5.590 H (0.465-4.680) mIU/L Free T4 1.37 (0.78-2.19) ng/dL Free T3 pg/mL 3.0 (2.8-5.3) pg/ml 11/20/20 11/20/20 Range/Units 21:25 21:25 WBC (3.8-10.6) k/uL RBC (3.80-5.40) m/uL Hgb (11.4-16.0) gm/dL Hct (34.0-46.0) % MCV (80.0-100.0) fL MCH (25.0-35.0) pg MCHC (31.0-37.0) g/dL RDW (11.5-15.5) % Plt Count (150-450) k/uL MPV Neutrophils % % Lymphocytes % % Monocytes % % Eosinophils % % Basophils % % Neutrophils # (1.3-7.7) k/uL Lymphocytes # (1.0-4.8) k/uL Monocytes # (0-1.0) k/uL Eosinophils # (0-0.7) k/uL Basophils # (0-0.2) k/uL PT (9.0-12.0) sec INR (<1.2) APTT (22.0-30.0) sec Sodium (137-145) mmol/L Potassium (3.5-5.1) mmol/L Chloride (98-107) mmol/L Carbon Dioxide (22-30) mmol/L Anion Gap mmol/L BUN (7-17) mg/dL Creatinine (0.52-1.04) mg/dL Est GFR (CKD-EPI)AfAm (>60 ml/min/1.73 sqM) Est GFR (CKD-EPI)NonAf (>60 ml/min/1.73 sqM) Glucose (74-99) mg/dL Calcium (8.4-10.2) mg/dL Magnesium (1.6-2.3) mg/dL Total Bilirubin (0.2-1.3) mg/dL AST (14-36) U/L ALT (4-34) U/L Alkaline Phosphatase (38-126) U/L Troponin I <0.012 (0.000-0.034) ng/mL NT-Pro-B Natriuret Pep 4010 pg/mL Total Protein (6.3-8.2) g/dL Albumin (3.5-5.0) g/dL TSH (0.465-4.680) mIU/L Free T4 (0.78-2.19) ng/dL Free T3 pg/mL (2.8-5.3) pg/ml - Radiology Data Radiology results: image reviewed (chest x-ray shows no acute abnormality) Critical Care Time Critical Care Time: Yes Total Critical Care Time: 33 Disposition Clinical Impression: Atrial fibrillation with RVR, Hypomagnesemia Disposition: ADMITTED IP TO THIS [facility] Is patient prescribed a controlled substance at d/c from ED?: No Referrals: Grant Townsend MD [Primary Care Provider] - 1-2 days Decision Time: 22:28
[2020-11-20] MEDS ORDERED: DILTIAZEM 125 MG in SODIUM CHLORIDE 0.9% 100 ML IV SCH (21:30)
[2020-11-20 21:32] LABS: Basophils # (A) 0.1 k/uL (0-0.2); Basophils % (A) 1 %; Eosinophils # (A) 0.2 k/uL (0-0.7); Eosinophils % (A) 2 %; HCT 41.1 % (34.0-46.0); HGB 13.3 gm/dL (11.4-16.0); Lymphocytes # (A) 1.3 k/uL (1.0-4.8); Lymphocytes % (A) 16 %; MCH 30.2 pg (25.0-35.0); MCHC 32.3 g/dL (31.0-37.0); MCV 93.4 fL (80.0-100.0); Mean Platelet Volume 7.1; Monocytes # (A) 0.4 k/uL (0-1.0); Monocytes % (A) 5 %; Neutrophils # (A) 6.1 k/uL (1.3-7.7); Neutrophils % (A) 76 %; Platelet Count 230 k/uL (150-450); RDW 13.9 % (11.5-15.5); WBC 8.1 k/uL (3.8-10.6)
--- NOTE | 2020-11-20 21:33 | XR ---
EXAMINATION TYPE: XR chest 2V DATE OF EXAM: 11/20/2020 COMPARISON: NONE HISTORY: Short of breath TECHNIQUE: 2 views FINDINGS: There is no heart failure nor confluent pneumonic infiltrate. Costophrenic angles are clear . There are sternal wires. There is cardiac valve surgery. Bony thorax is intact. IMPRESSION: No active cardiopulmonary disease.
[2020-11-20 21:41] LABS: Albumin 4.3 g/dL (3.5-5.0); Calcium 9.5 mg/dL (8.4-10.2); Magnesium 1.1 mg/dL (1.6-2.3); Potassium 4.7 mmol/L (3.5-5.1); Total Bilirubin 0.4 mg/dL (0.2-1.3); Total Protein 7.1 g/dL (6.3-8.2)
[2020-11-20 21:42] LABS: INR 1.2 (<1.2); Partial Thromboplastin Time 27.4 sec (22.0-30.0); Prothrombin Time 12.6 sec (9.0-12.0)
[2020-11-20] MEDS ORDERED: MAGNESIUM SULFATE-D5W PMX 1 GM in DEXTROSE/WATER 1 100ML.BAG IVPB ONE (21:56)
[2020-11-20 21:58] LABS: T4, Free (Free Thyroxine) 1.37 ng/dL (0.78-2.19)
[2020-11-20] MEDS ORDERED: NALOXONE 0.4 MG/ML 1 ML VIAL IV PRN (22:29)
[2020-11-20] MEDS ORDERED: FUROSEMIDE 10 MG/ML 2 ML VIAL IV ONE (22:30)
[2020-11-20] MEDS: MAGNESIUM OXIDE 400 MG TAB PO SCH (22:40)
[2020-11-21 06:19] LABS: Glucose,Whole Blood 142 mg/dL (75-99)
[2020-11-21] MEDS ORDERED: Magnesium Replacement Protocol 1 EACH MISC MISCELLANE PRN (08:17)
[2020-11-21] MEDS ORDERED: METOPROLOL SUCCINATE (ER) 50 MG TAB.ER.24H PO SCH (09:00)
[2020-11-21] MEDS: RIVAROXABAN 20 MG TAB PO SCH (09:55)
[2020-11-21] MEDS: METOPROLOL SUCCINATE (ER) 25 MG TAB.ER.24H PO SCH ×2 (09:55→18:21)
[2020-11-21] MEDS: MAGNESIUM OXIDE 400 MG TAB PO SCH ×2 (09:55→20:35)
--- NOTE | 2020-11-21 10:46 | P.CRDCN ---
History of Present Illness History of present illness: HISTORY OF PRESENTING ILLNESS This is a pleasant 75-year-old female past medical history significant for valvular heart disease s/p prosthetic aortic valve replacement, hypertensio n, diabetes mellitus and dyslipidemia. She follows in the office with Dr. Moncada. We have been asked to see in consultation for atrial flutter. She saw Dr. Bond earlier this week for symptoms of palpitations, increased fatigue and shortness of breath. He did an EKG in the office and found her to be in atrial flutter with 2:1 conduction. She was started on xarelto, amiodarone and her toprol was increased. She was advised to monitor her heart rates and symptoms at home. If she continues with rapid heart rates the plan was for HARJINDER/cardioversion. She states her heart rates were improving but still up around 130. She was also feeling increasingly short of breath with a tightness in the mid-sternal region prompting her to come to ER for evaluation. She is started on IV Cardizem infusion. This morning she is seen and examined sitting up eating breakfast in no acute distress she states her chest discomfort had subsided. Heart rates are in the 80s to 90s. Rhythm continues to be atrial flu tter. DIAGNOSTICS EKG reveals atrial flutter. Telemetry tracings indicate persistent atrial flutter with 3:1 and 4:1 conduction. Chest xray negative for an acute process. Laboratory reviewed, CBC unremarkable, sodium 138, potassium 4.7, creatinine 0.76, magnesium on admission 1.1 after supplementation 1.3, AST 102, ALT 194, troponin negative 1, and T proBNP 4010, TSH 5.59. Current cardiac medications include Xarelto 20 mg daily, amiodarone 200 mg twice a day, atorvastatin 40 mg daily, lisinopril when he milligrams daily and Toprol 50 mg twice a day. REVIEW OF SYSTEMS At the time of my exam: CONSTITUTIONAL: Denies fever or chills. CARDIOVASCULAR: Denies chest pain, shortness of breath, orthopnea, PND or palpitations. RESPIRATORY: Denies cough. GASTROINTESTINAL: Denies abdominal pain, diarrhea, constipation, nausea or vomiting. MUSCULOSKELETAL: Denies myalgias. NEUROLOGIC: Denies numbness, tingling, headacbe or weakness. ENDOCRINE: Denies fatigue, weight change, polydipsia or polyurina. GENITOURINARY: Denies burning, hematuria or urgency with micturation. HEMATOLOGIC: Denies history of anemia or bleeding. PHYSICAL EXAMINATION Blood pressure 121/78 heart rate 76 afebrile and maintaining oxygen saturation on nasal cannula. CONSTITUTIONAL: No apparent distress. HEENT: Head is normocephalic. Pupils are equal, round. Sclerae anicteric. Mucous membranes of the mouth are moist. No JVD. No carotid bruit. CHEST EXAMINATION: Lungs are clear to auscultation. No chest wall tenderness is noted on palpation or with deep breathing. HEART EXAMINATION: Regular rate and rhythm. S1, S2 heard. Systolic ejection murmur at the base, no gallops or rub. ABDOMEN: Soft, nontender. Positive bowel sounds. EXTREMITIES: 2+ peripheral pulses, no lower extremity edema and no calf tenderness. NEUROLOGIC EXAMINATION: Patient is awake, alert and oriented x3. ASSESSMENT New onset typical atrial flutter with rapid ventricular rate Valvular heart disease status post prosthetic aortic valve replacement Hypomagnesemia Transaminitis Hypertension Dyslipidemia Diabetes mellitus PLAN Continue to replace magnesium per protocol. Increase Toprol to 75 mg twice a day. Give first dose now and discontinue Cardizem infusion at 1400. Continue Xarelto for thromboembolic protection. Discontinue amiodarone. Ongoing telemetry monitoring. Further recommendations to follow based upon clinical course. Thank you kindly for this consultation. Nurse Practitioner note has been reviewed, I agree with a documented findings and plan of care. Patient was seen and examined. Past Medical History Past Medical History: Atrial Fibrillation, Coronary Artery Disease (CAD), Diabetes Mellitus, GERD/Reflux, Hyperlipidemia, Hypertension, Osteoarthritis (OA) Additional Past Medical History / Comment(s): heart murmur, born with bicuspid aorta, diarrhea, "leaky bladder" History of Any Multi-Drug Resistant Organisms: None Reported Past Surgical History: Bladder Surgery, Cardiac Valve Replacement, Heart Catheterization, Hysterectomy, Joint Replacement, Tubal Ligation Additional Past Surgical History / Comment(s): rt hip replacement, HARJINDER, bladder suspension x 2, Past Anesthesia/Blood Transfusion Reactions: Previous Problems w/ Anesthesia, Motion Sickness Additional Past Anesthesia/Blood Transfusion Reaction / Comment(s): "long time coming out" Past Psychological History: Anxiety Smoking Status: Never smoker Past Alcohol Use History: None Reported Past Drug Use History: Unable to Obtain - Past Family History Father Family Medical History: Cancer Daughter(s) Family Medical History: Cancer Medications and Allergies Home Medications Medication Instructions Recorded Confirmed Type Atorvastatin [Lipitor] 40 mg PO HS 01/24/17 11/21/20 History Omeprazole [PriLOSEC] 20 mg PO DAILY 01/24/17 11/21/20 History metFORMIN HCL 1,000 mg PO BID 01/24/17 11/21/20 History sitaGLIPtin [Januvia] 100 mg PO DAILY 01/24/17 11/21/20 History Calcium Carbonate [Calcium] 600 mg PO W/LUNCH 11/04/17 11/21/20 History Cholecalciferol [Vitamin D3] 800 unit PO W/LUNCH 11/04/17 11/21/20 History Cyanocobalamin (Vitamin B-12) 1,000 mcg PO W/LUNCH 11/04/17 11/21/20 History [Vitamin B-12] Ferrous Sulfate [Feosol] 65 mg PO W/LUNCH 11/04/17 11/21/20 History Amiodarone [Cordarone] 200 mg PO BID 02/03/18 11/21/20 History Metoprolol Succinate [Toprol XL] 50 mg PO BID 11/21/20 11/21/20 History Pioglitazone [Actos] 30 mg PO DAILY 11/21/20 11/21/20 History Rivaroxaban [Xarelto] 20 mg PO DAILY 11/21/20 11/21/20 History Rivaroxaban [Xarelto] 20 mg PO DAILY #30 tab 11/21/20 Rx Ubidecarenone [Co Q-10] 300 mg PO W/LUNCH 11/21/20 11/21/20 History lisinopriL [Prinivil] 20 mg PO DAILY 11/21/20 11/21/20 History Allergies Allergy/AdvReac Type Severity Reaction Status Date / Time Penicillins Allergy Rash/Hives Verified 11/21/20 07:02 Physical Exam Vitals: Vital Signs Temp Pulse Pulse Resp BP BP Pulse Ox 11/21/20 07:57 98 F 76 18 121/78 98 11/21/20 04:00 97.8 F 74 18 104/71 100 11/21/20 01:37 80 18 11/21/20 00:01 97.4 F L 80 18 96/44 100 11/21/20 00:00 80 18 11/20/20 22:49 107 H 17 130/86 100 11/20/20 22:38 123 H 18 130/79 100 11/20/20 21:30 123 H 11/20/20 20:49 98.0 F 124 H 18 167/114 98 Intake and Output 11/20/20 11/21/20 11/21/20 22:59 06:59 14:59 Intake Total 5.833 13.333 Output Total 1200 Balance 5.833 -1186.667 Intake: Intake, IV Titration 5.833 13.333 Amount Diltiazem 125 mg In 5.833 13.333 Sodium Chloride 0.9% 100 ml @ 5 MG/HR 5 mls/hr IV .Q24H [facility] Rx#:[id number] Output: Urine 1200 Other: Voiding Method Toilet Toilet # Voids 1 Weight 61.235 kg 61.1 kg Results 11/20/20 21:25 11/20/20 21:25 Cardiac Enzymes 11/20/20 11/20/20 Range/Units 21:25 21:25 AST 102 H (14-36) U/L Troponin I <0.012 (0.000-0.034) ng/mL Coagulation 11/20/20 Range/Units 21:25 PT 12.6 H (9.0-12.0) sec APTT 27.4 (22.0-30.0) sec CBC 11/20/20 Range/Units 21:25 WBC 8.1 (3.8-10.6) k/uL RBC 4.40 (3.80-5.40) m/uL Hgb 13.3 (11.4-16.0) gm/dL Hct 41.1 (34.0-46.0) % Plt Count 230 (150-450) k/uL Comprehensive Metabolic Panel 11/20/20 Range/Units 21:25 Sodium 138 (137-145) mmol/L Potassium 4.7 (3.5-5.1) mmol/L Chloride 102 (98-107) mmol/L Carbon Dioxide 24 (22-30) mmol/L BUN 20 H (7-17) mg/dL Creatinine 0.76 (0.52-1.04) mg/dL Glucose 202 H (74-99) mg/dL Calcium 9.5 (8.4-10.2) mg/dL AST 102 H (14-36) U/L ALT 194 H (4-34) U/L Alkaline Phosphatase 73 (38-126) U/L Total Protein 7.1 (6.3-8.2) g/dL Albumin 4.3 (3.5-5.0) g/dL Current Medications Generic Name Dose Route Start Last Admin Trade Name Freq PRN Reason Stop Dose Admin Diltiazem HCl 125 mg/ Sodium 125 mls @ 5 mls/hr 11/20/20 21:30 11/21/20 00:00 Chloride IV 5 mg/hr .Q24H JENNIFER 5 mls/hr Infusion 5 MG/HR Magnesium Oxide 400 mg 11/20/20 22:00 11/20/20 22:40 Magnesium Oxide 400 Mg Tab PO 400 mg BID JENNIFER Administration Metoprolol Succinate 50 mg 11/21/20 09:00 Metoprolol Succinate (Er) 50 Mg Tab.Er.24h PO BID [facility] Naloxone HCl 0.2 mg 11/20/20 22:29 Naloxone 0.4 Mg/Ml 1 Ml Vial IV Q2M PRN Opioid Reversal Rivaroxaban 20 mg 11/21/20 09:00 Rivaroxaban 20 Mg Tab PO DAILY [facility] Intake and Output 11/20/20 11/21/20 11/21/20 22:59 06:59 14:59 Intake Total 5.833 13.333 Output Total 1200 Balance 5.833 -1186.667 Intake: Intake, IV Titration 5.833 13.333 Amount Diltiazem 125 mg In 5.833 13.333 Sodium Chloride 0.9% 100 ml @ 5 MG/HR 5 mls/hr IV .Q24H [facility] Rx#:[id number] Output: Urine 1200 Other: Voiding Method Toilet Toilet # Voids 1 Weight 61.235 kg 61.1 kg 11/20/20 21:25 11/20/20 21:25
[2020-11-21 12:00] LABS: Glucose,Whole Blood 99 mg/dL (75-99)
[2020-11-21 12:54] LABS: Glucose,Whole Blood 201 mg/dL (75-99)
[2020-11-21] MEDS: MAGNESIUM SULFATE-D5W PMX 1 GM in DEXTROSE/WATER 1 100ML.BAG IVPB SCH ×3 (13:29→15:30)
[2020-11-21] MEDS: CYANOCOBALAMIN 500 MCG TAB PO SCH (13:31)
[2020-11-21] MEDS: PANTOPRAZOLE 40 MG TABLET PO SCH (13:31)
[2020-11-21] MEDS: CALCIUM CARBONATE 500 MG CHEWABLE PO SCH (13:32)
[2020-11-21] MEDS: CHOLECALCIFEROL 10 MCG (400 IU) TABLET PO SCH (13:32)
[2020-11-21] MEDS: PIOGLITAZONE 30 MG TAB PO SCH (13:32)
[2020-11-21] MEDS: FERROUS SULFATE 325 MG TAB PO SCH (13:32)
--- NOTE | 2020-11-21 16:35 | P.HPIM ---
History of Present Illness H&P Date: 11/21/20 Chief Complaint: sob 75-year-old female presenting to the emergency Department with complaints of palpitations. Onset of symptoms was less than a week ago. Patient saw her do ctor 3 days ago and was diagnosed with atrophic ablation. Patient was told it on Xarelto and amiodarone. Patient also had her metoprolol increased. Patient has continued palpitations and increased heart rate. Patient is now having some shortness of breath and tightness of her chest. Patient has noticed some mild edema. EKG reveals atrial flutter. Telemetry tracings indicate persistent atrial flutter with 3:1 and 4:1 conduction. Chest xray negative for an acute process. Laboratory reviewed, CBC unremarkable, sodium 138, potassium 4.7, creatinine 0.76, magnesium on admission 1.1 after supplementation 1.3, AST 102, ALT 194, troponin negative 1, and T proBNP 4010, TSH 5.59. Current cardiac medications include Xarelto 20 mg daily, amiodarone 200 mg twice a day, atorvastatin 40 mg daily, lisinopril when he milligrams daily and Toprol 50 mg twice a day. Review of Systems CONSTITUTIONAL: Denies fever or chills. CARDIOVASCULAR: Denies chest pain, shortness of breath, orthopnea, PND or palpitations. RESPIRATORY: Denies cough. GASTROINTESTINAL: Denies abdominal pain, diarrhea, constipation, nausea or vomiting. MUSCULOSKELETAL: Denies myalgias. NEUROLOGIC: Denies numbness, tingling, headacbe or weakness. ENDOCRINE: Denies fatigue, weight change, polydipsia or polyurina. GENITOURINARY: Denies burning, hematuria or urgency with micturation. HEMATOLOGIC: Denies history of anemia or bleeding. Past Medical History Past Medical History: Atrial Fibrillation, Coronary Artery Disease (CAD), Diabetes Mellitus, GERD/Reflux, Hyperlipidemia, Hypertension, Osteoarthritis (OA) Additional Past Medical History / Comment(s): heart murmur, born with bicuspid aorta, diarrhea, "leaky bladder" History of Any Multi-Drug Resistant Organisms: None Reported Past Surgical History: Bladder Surgery, Cardiac Valve Replacement, Heart Catheterization, Hysterectomy, Joint Replacement, Tubal Ligation Additional Past Surgical History / Comment(s): rt hip replacement, HRAJINDER, bladder suspension x 2, Past Anesthesia/Blood Transfusion Reactions: Previous Problems w/ Anesthesia, Motion Sickness Additional Past Anesthesia/Blood Transfusion Reaction / Comment(s): "long time coming out" Past Psychological History: Anxiety Smoking Status: Never smoker Past Alcohol Use History: None Reported Past Drug Use History: Unable to Obtain - Past Family History Father Family Medical History: Cancer Daughter(s) Family Medical History: Cancer Medications and Allergies Home Medications Medication Instructions Recorded Confirmed Type Atorvastatin [Lipitor] 40 mg PO HS 01/24/17 11/21/20 History Omeprazole [PriLOSEC] 20 mg PO DAILY 01/24/17 11/21/20 History metFORMIN HCL 1,000 mg PO BID 01/24/17 11/21/20 History sitaGLIPtin [Januvia] 100 mg PO DAILY 01/24/17 11/21/20 History Calcium Carbonate [Calcium] 600 mg PO W/LUNCH 11/04/17 11/21/20 History Cholecalciferol [Vitamin D3] 800 unit PO W/LUNCH 11/04/17 11/21/20 History Cyanocobalamin (Vitamin B-12) 1,000 mcg PO W/LUNCH 11/04/17 11/21/20 History [Vitamin B-12] Ferrous Sulfate [Feosol] 65 mg PO W/LUNCH 11/04/17 11/21/20 History Amiodarone [Cordarone] 200 mg PO BID 02/03/18 11/21/20 History Metoprolol Succinate [Toprol XL] 50 mg PO BID 11/21/20 11/21/20 History Pioglitazone [Actos] 30 mg PO DAILY 11/21/20 11/21/20 History Rivaroxaban [Xarelto] 20 mg PO DAILY 11/21/20 11/21/20 History Rivaroxaban [Xarelto] 20 mg PO DAILY #30 tab 11/21/20 Rx Ubidecarenone [Co Q-10] 300 mg PO W/LUNCH 11/21/20 11/21/20 History lisinopriL [Prinivil] 20 mg PO DAILY 11/21/20 11/21/20 History Allergies Allergy/AdvReac Type Severity Reaction Status Date / Time Penicillins Allergy Rash/Hives Verified 11/21/20 07:02 Physical Exam Vitals: Vital Signs Temp Pulse Pulse Resp BP BP Pulse Ox 11/21/20 11:27 97.6 F 65 16 101/59 100 11/21/20 07:57 98 F 76 18 121/78 98 11/21/20 04:00 97.8 F 74 18 104/71 100 11/21/20 01:37 80 18 11/21/20 00:01 97.4 F L 80 18 96/44 100 11/21/20 00:00 80 18 11/20/20 22:49 107 H 17 130/86 100 11/20/20 22:38 123 H 18 130/79 100 11/20/20 21:30 123 H 11/20/20 20:49 98.0 F 124 H 18 167/114 98 Intake and Output 11/20/20 11/21/20 11/21/20 22:59 06:59 14:59 Intake Total 5.833 13.333 240 Output Total 1200 150 Balance 5.833 -1186.667 90 Intake: Intake, IV Titration 5.833 13.333 Amount Diltiazem 125 mg In 5.833 13.333 Sodium Chloride 0.9% 100 ml @ 5 MG/HR 5 mls/hr IV .Q24H [facility] Rx#:[id number] Oral 240 Output: Urine 1200 150 Other: Voiding Method Toilet Toilet # Voids 1 1 Weight 61.235 kg 61.1 kg Limitations: no limitations General appearance: alert, in no apparent distress Head exam: Present: normocephalic Eye exam: Present: normal appearance Respiratory exam: Present: normal lung sounds bilaterally Cardiovascular Exam: Present: tachycardia, irregular rhythm Expanded Peripheral pulses: 2+: Radial (R), Radial (L), Dorsalis Pedis (R), Dorsalis Pedis (L) GI/Abdominal exam: Present: soft. Absent: tenderness Extremities exam: Present: pedal edema (Trace bilateral). Absent: calf tenderness Neurological exam: Present: alert Psychiatric exam: Present: normal affect, normal mood Skin exam: Present: normal color Results CBC & Chem 7: 11/20/20 21:25 11/20/20 21:25 Labs: Abnormal Lab Results - Last 24 Hours (Table) 11/20/20 11/20/20 11/21/20 Range/Units 21:25 21:25 06:18 PT 12.6 H (9.0-12.0) sec INR 1.2 H (<1.2) BUN 20 H (7-17) mg/dL Glucose 202 H (74-99) mg/dL POC Glucose (mg/dL) 142 H (75-99) mg/dL Magnesium 1.1 L (1.6-2.3) mg/dL AST 102 H (14-36) U/L ALT 194 H (4-34) U/L TSH 5.590 H (0.465-4.680) mIU/L 11/21/20 Range/Units 06:47 PT (9.0-12.0) sec INR (<1.2) BUN (7-17) mg/dL Glucose (74-99) mg/dL POC Glucose (mg/dL) (75-99) mg/dL Magnesium 1.3 L (1.6-2.3) mg/dL AST (14-36) U/L ALT (4-34) U/L TSH (0.465-4.680) mIU/L Thrombosis Risk Factor Assmnt - Choose All That Apply Any of the Below Risk Factors Present?: No Other Risk Factors: Yes Each Risk Factor Represents 3 Points: Age 75 years or older Other congenital or acquired thrombophilia - If yes, enter type in comment: No Thrombosis Risk Factor Assessment Total Risk Factor Score: 3 Thrombosis Risk Factor Assessment Level: Moderate Risk Assessment and Plan Assessment: 1.New onset typical atrial flutter with rapid ventricular rate - Increase Toprol to 75 mg twice a day. Give first dose now and discontinue Cardizem infusion at 1400. Continue Xarelto for thromboembolic protection. 2. Hypomagnesemia - Continue to replace magnesium per protocol; monitor electrolytes closely 3. Transaminitis; We will repeat liver function test and plan to consult GI if liver enzymes remain elevated 4. Hypertension; Increase Toprol to 75 mg twice a day. 5. Dyslipidemia; Lipitor 40 mg by mouth daily at bedtime 6. Diabetes mellitus; Metformin thousand milligrams twice a day, Actos 30 mg daily, Accu-Cheks every before meals and at bedtime DVT prophylaxis; Continue Xarelto CODE STATUS; full code
[2020-11-21 17:09] LABS: Glucose,Whole Blood 151 mg/dL (75-99)
[2020-11-21] MEDS: INSULIN ASPART (NovoLOG) 100 UNIT/ML VIAL SQ SCH ×2 (17:18→20:46)
[2020-11-21] MEDS: metFORMIN 500 MG TAB PO SCH (17:18)
[2020-11-21 20:18] LABS: Glucose,Whole Blood 116 mg/dL (75-99)
[2020-11-21] MEDS: ATORVASTATIN 40 MG TAB PO SCH (20:35)
[2020-11-22 06:11] LABS: Glucose,Whole Blood 141 mg/dL (75-99)
[2020-11-22] MEDS: metFORMIN 500 MG TAB PO SCH ×2 (06:30→17:21)
[2020-11-22] MEDS: INSULIN ASPART (NovoLOG) 100 UNIT/ML VIAL SQ SCH ×4 (06:31→20:59)
[2020-11-22] MEDS: PANTOPRAZOLE 40 MG TABLET PO SCH (06:31)
[2020-11-22] MEDS: PIOGLITAZONE 30 MG TAB PO SCH (08:07)
[2020-11-22] MEDS: METOPROLOL SUCCINATE (ER) 25 MG TAB.ER.24H PO SCH ×2 (08:07→20:12)
[2020-11-22] MEDS: MAGNESIUM OXIDE 400 MG TAB PO SCH ×2 (08:07→20:12)
[2020-11-22] MEDS: CHOLECALCIFEROL 10 MCG (400 IU) TABLET PO SCH (08:07)
[2020-11-22] MEDS: RIVAROXABAN 20 MG TAB PO SCH (08:07)
[2020-11-22 08:46] LABS: Magnesium 1.5 mg/dL (1.6-2.3); Potassium 4.4 mmol/L (3.5-5.1)
[2020-11-22 12:08] LABS: Glucose,Whole Blood 151 mg/dL (75-99)
[2020-11-22] MEDS: CYANOCOBALAMIN 500 MCG TAB PO SCH (12:19)
[2020-11-22] MEDS: CALCIUM CARBONATE 500 MG CHEWABLE PO SCH (12:19)
[2020-11-22] MEDS: FERROUS SULFATE 325 MG TAB PO SCH (12:19)
--- NOTE | 2020-11-22 12:44 | P.PN ---
Subjective Progress Note Date: 11/22/20 The patient was interviewed and examined lying comfortably in bed. She states she is feeling well. She was able to ambulate to the bathroom this morning without assistance and states she did not notice her heart rate was elevated or developed any significant shortness of breath with activity. She states her chest discomfort she initially had when presenting to the hospital has comple tely resolved. No orthopnea, palpitations, dizziness, or lightheadedness. GENERAL: Well-appearing, well-nourished and in no acute distress. NECK: Supple without JVD or thyromegaly. LUNGS: Breath sounds clear to auscultation bilaterally. Respiration equal and unlabored. No wheezes, rales or rhonchi. HEART: irregular rate and rhythm without murmurs, rubs or gallops. S1 and S2 heard. EXTREMITIES: Normal range of motion, no edema. No clubbing or cyanosis. Peripheral pulses intact and strong. VITALS: Blood pressure 103/65, SpO2 98% on room air, respiratory rate 20, heart rate 129 TELEMETRY: Persistent atrial flutter with heart rates in the mid 120s. Elevation to 140s to 160s with ambulation. LABS: Sodium 137, potassium 4.4, BUN 25, creatinine 0.88, magnesium 1.5 IMPRESSION: #1 new onset typical A flutter with RVR, on Xarelto #2 valvular heart disease status post aVR #3 hypomagnesemia #4 hypertension #5 dyslipidemia #6 elevated liver enzymes, amiodarone discontinued PLAN: Continue to supplement electrolytes Patient will undergo cardioversion on Tuesday Dr. Gonzalez recommends proceeding with a flutter ablation if any reoccurrence thereafter The patient has been seen and evaluated. Plan of care has been reviewed and agreed upon by Dr Gonzalez. Objective - Vital Signs Vital signs: Vital Signs Temp 99.9 F H 11/22/20 08:00 Pulse 129 H 11/22/20 11:27 Resp 20 11/22/20 11:27 BP 103/65 11/22/20 11:27 Pulse Ox 98 11/22/20 11:27 Intake & Output 11/21/20 11/22/20 11/22/20 18:59 06:59 18:59 Intake Total 1300 480 Output Total 350 400 Balance 950 80 Weight 60.4 kg Intake: Oral 1300 480 Output: Urine 350 400 Other: Voiding Method Toilet Toilet # Voids 1 3 - Labs CBC & Chem 7: 11/20/20 21:25 11/22/20 08:10 Labs: Abnormal Lab Results - Last 24 Hours (Table) 11/21/20 11/21/20 11/21/20 Range/Units 12:52 17:07 20:16 Carbon Dioxide (22-30) mmol/L BUN (7-17) mg/dL Glucose (74-99) mg/dL POC Glucose (mg/dL) 201 H 151 H 116 H (75-99) mg/dL Magnesium (1.6-2.3) mg/dL 11/22/20 11/22/20 11/22/20 Range/Units 06:10 08:10 11:53 Carbon Dioxide 34 H (22-30) mmol/L BUN 25 H (7-17) mg/dL Glucose 170 H (74-99) mg/dL POC Glucose (mg/dL) 141 H 151 H (75-99) mg/dL Magnesium 1.5 L (1.6-2.3) mg/dL
[2020-11-22 17:24] LABS: Glucose,Whole Blood 97 mg/dL (75-99)
--- NOTE | 2020-11-22 18:16 | P.PN ---
Subjective Progress Note Date: 11/22/20 Principal diagnosis: Atrial flutter with RVR 75-year-old female presenting to the emergency Department with complaints of palpitations. Onset of symptoms was less than a week ago. Patient saw her doctor 3 days ago and was diagnosed with atrophic ablation. Patient was told it on Xarelto and amiodarone. Patient also had her metoprolol increased. Patient has continued palpitations and increased heart rate. Patient is now having some shortness of breath and tightness of her chest. Patient has noticed some mild edema. EKG reveals atrial flutter. Patient is being followed by cardiology and plan is possible cardioversion on Tuesday with recommendations for ablation if unsuccessful Objective - Vital Signs Vital signs: Vital Signs Temp 99.9 F H 11/22/20 08:00 Pulse 129 H 11/22/20 11:27 Resp 20 11/22/20 11:27 BP 103/65 11/22/20 11:27 Pulse Ox 98 11/22/20 11:27 Intake & Output 11/21/20 11/22/20 11/22/20 18:59 06:59 18:59 Intake Total 1300 480 240 Output Total 350 400 Balance 950 80 240 Weight 60.4 kg Intake: Oral 1300 480 240 Output: Urine 350 400 Other: Voiding Method Toilet Toilet # Voids 1 3 - Exam - Constitutional General appearance: Present: average body habitus, cooperative, no acute d istress - EENT Eyes: Present: anicteric sclerae, EOMI, PERRLA, normal appearance ENT: Present: hearing grossly normal, normal oropharynx Ears: bilateral: normal - Neck Neck: Present: normal ROM. Absent: lymphadenopathy, rigidity, thyromegaly Carotids: negative: bruit present Thyroid: bilateral: normal size, negative: enlarged, nodule - Respiratory Respiratory: bilateral: CTA, negative: rales, rhonchi, wheezing - Cardiovascular Rhythm: regular Heart sounds: normal: S1, S2 Abnormal Heart Sounds: Absent: systolic murmur, diastolic murmur - Gastrointestinal General gastrointestinal: Present: normal bowel sounds, soft. Absent: distended, organomegaly, tenderness - Genitourinary Genitourinary Comment(s): deferred - Integumentary Integumentary: Present: normal turgor. Absent: jaundiced, rash, ulcer - Neurologic Neurologic: Present: CNII-XII intact. Absent: focal deficits - Musculoskeletal Musculoskeletal: Present: gait normal, strength equal bilaterally - Psychiatric Psychiatric: Present: A&O x's 3, appropriate affect, intact judgment & insight - Labs CBC & Chem 7: 11/20/20 21:25 11/22/20 08:10 Labs: Abnormal Lab Results - Last 24 Hours (Table) 11/21/20 11/21/20 11/22/20 Range/Units 17:07 20:16 06:10 Carbon Dioxide (22-30) mmol/L BUN (7-17) mg/dL Glucose (74-99) mg/dL POC Glucose (mg/dL) 151 H 116 H 141 H (75-99) mg/dL Magnesium (1.6-2.3) mg/dL 11/22/20 11/22/20 Range/Units 08:10 11:53 Carbon Dioxide 34 H (22-30) mmol/L BUN 25 H (7-17) mg/dL Glucose 170 H (74-99) mg/dL POC Glucose (mg/dL) 151 H (75-99) mg/dL Magnesium 1.5 L (1.6-2.3) mg/dL Assessment and Plan Assessment: 1.New onset typical atrial flutter with rapid ventricular rate - Increase Toprol to 75 mg twice a day. Give first dose now and discontinue Cardizem infusion at 1400. Continue Xarelto for thromboembolic protection. 2. Hypomagnesemia - Continue to replace magnesium per protocol; monitor electrolytes closely 3. Transaminitis; We will repeat liver function test and plan to consult GI if liver enzymes remain elevated 4. Hypertension; Increase Toprol to 75 mg twice a day. 5. Dyslipidemia; Lipitor 40 mg by mouth daily at bedtime 6. Diabetes mellitus; Metformin thousand milligrams twice a day, Actos 30 mg daily, Accu-Cheks every before meals and at bedtime DVT prophylaxis; Continue Xarelto CODE STATUS; full code
[2020-11-22] MEDS: ATORVASTATIN 40 MG TAB PO SCH (20:12)
[2020-11-22 21:10] LABS: Glucose,Whole Blood 73 mg/dL (75-99)
[2020-11-23] MEDS: INSULIN ASPART (NovoLOG) 100 UNIT/ML VIAL SQ SCH ×4 (06:14→20:29)
[2020-11-23] MEDS: PANTOPRAZOLE 40 MG TABLET PO SCH (06:15)
[2020-11-23] MEDS: metFORMIN 500 MG TAB PO SCH ×2 (06:15→17:12)
[2020-11-23 06:36] LABS: Glucose,Whole Blood 148 mg/dL (75-99)
[2020-11-23 07:16] LABS: Basophils % (A) 1 %; Eosinophils # (A) 0.2 k/uL (0-0.7); Eosinophils % (A) 3 %; HCT 37.1 % (34.0-46.0); HGB 12.2 gm/dL (11.4-16.0); Lymphocytes # (A) 1.4 k/uL (1.0-4.8); Lymphocytes % (A) 23 %; MCH 30.6 pg (25.0-35.0); MCHC 32.9 g/dL (31.0-37.0); MCV 92.9 fL (80.0-100.0); Mean Platelet Volume 7.3; Monocytes # (A) 0.4 k/uL (0-1.0); Monocytes % (A) 7 %; Neutrophils # (A) 4.2 k/uL (1.3-7.7); Neutrophils % (A) 66 %; Platelet Count 218 k/uL (150-450); RDW 14.1 % (11.5-15.5); WBC 6.3 k/uL (3.8-10.6)
[2020-11-23 07:25] LABS: Calcium 8.9 mg/dL (8.4-10.2); Potassium 4.8 mmol/L (3.5-5.1)
[2020-11-23] MEDS: PIOGLITAZONE 30 MG TAB PO SCH (08:04)
[2020-11-23] MEDS: MAGNESIUM OXIDE 400 MG TAB PO SCH ×2 (08:04→20:41)
[2020-11-23] MEDS: METOPROLOL SUCCINATE (ER) 25 MG TAB.ER.24H PO SCH ×2 (08:04→20:38)
[2020-11-23] MEDS: RIVAROXABAN 20 MG TAB PO SCH (08:04)
[2020-11-23] MEDS ORDERED: LOPERAMIDE 2 MG CAP PO PRN (08:48)
[2020-11-23] MEDS: MAGNESIUM SULFATE-D5W PMX 1 GM in DEXTROSE/WATER 1 100ML.BAG IVPB SCH ×4 (09:53→14:42)
[2020-11-23] MEDS: FERROUS SULFATE 325 MG TAB PO SCH (11:13)
[2020-11-23] MEDS: CYANOCOBALAMIN 500 MCG TAB PO SCH (11:13)
[2020-11-23] MEDS: CALCIUM CARBONATE 500 MG CHEWABLE PO SCH (11:13)
[2020-11-23] MEDS: CHOLECALCIFEROL 10 MCG (400 IU) TABLET PO SCH (11:14)
[2020-11-23 12:22] LABS: Glucose,Whole Blood 149 mg/dL (75-99)
--- NOTE | 2020-11-23 12:36 | P.PN ---
Subjective Progress Note Date: 11/23/20 The patient was interviewed and examined lying comfortably in bed. She states she did get short of breath with ambulation to the bathroom just prior to my examination. She continues to be slightly labored, however the patient states she is feeling better now that she is sitting and resting. No orthopnea, palpitations, dizziness, or lightheadedness. GENERAL: Well-appearing, well-nourished. NECK: Supple without JVD or thyromegaly. LUNGS: Breath sounds clear to auscultation bilaterally. Respiration equal and unlabored. No wheezes, rales or rhonchi. HEART: irregular rate and rhythm without murmurs, rubs or gallops. S1 and S2 heard. EXTREMITIES: Normal range of motion, no edema. No clubbing or cyanosis. Peripheral pulses intact and strong. VITALS: Blood pressure 104/65, heart rate 133, respiratory rate 18, SpO2 100% on room air. Immature 97.9F TELEMETRY: Persistent atrial flutter with heart rates in the mid 130s. Elevation to 160s with ambulation. LABS: WBC 6.3, hemoglobin 12.2, hematocrit 37.1, platelet 218, sodium 136, potassium 4.8, BUN 23, creatinine 0.79, magnesium 1.5 IMPRESSION: #1 new onset typical A flutter with RVR, on Xarelto #2 valvular heart disease status post AVR #3 hypomagnesemia, undergoing replacement #4 hypertension #5 dyslipidemia #6 elevated liver enzymes, amiodarone discontinued PLAN: Continue to supplement electrolytes Start Cardizem drip for rate control Patient will undergo cardioversion on Tuesday with Dr. Ronda Gonzalez recommends proceeding with a flutter ablation if any reoccurrence thereafter Objective - Vital Signs Vital signs: Vital Signs Temp 97.8 F 11/23/20 11:15 Pulse 117 H 11/23/20 11:15 Resp 18 11/23/20 11:15 BP 118/78 11/23/20 11:15 Pulse Ox 96 11/23/20 11:15 Intake & Output 11/22/20 11/23/20 11/23/20 18:59 06:59 18:59 Intake Total 600 480 240 Output Total 300 Balance 300 480 240 Weight 60.4 kg Intake: Oral 600 480 240 Output: Urine 300 Other: Voiding Method Toilet Toilet # Voids 2 2 # Bowel Movements 3 - Labs CBC & Chem 7: 11/23/20 06:42 11/23/20 06:42 Labs: Abnormal Lab Results - Last 24 Hours (Table) 11/22/20 11/23/20 11/23/20 Range/Units 20:46 06:12 06:42 Sodium 136 L (137-145) mmol/L Carbon Dioxide 33 H (22-30) mmol/L BUN 23 H (7-17) mg/dL Glucose 170 H (74-99) mg/dL POC Glucose (mg/dL) 73 L 148 H (75-99) mg/dL Magnesium (1.6-2.3) mg/dL 11/23/20 11/23/20 Range/Units 06:42 11:55 Sodium (137-145) mmol/L Carbon Dioxide (22-30) mmol/L BUN (7-17) mg/dL Glucose (74-99) mg/dL POC Glucose (mg/dL) 149 H (75-99) mg/dL Magnesium 1.5 L (1.6-2.3) mg/dL
[2020-11-23] MEDS ORDERED: DILTIAZEM 125 MG in SODIUM CHLORIDE 0.9% 100 ML IV SCH (12:45)
--- NOTE | 2020-11-23 13:38 | P.PN ---
Subjective Progress Note Date: 11/23/20 Principal diagnosis: Atrial flutter with RVR 75-year-old female presenting to the emergency Department with complaints of palpitations. Onset of symptoms was less than a week ago. Patient saw her doctor 3 days ago and was diagnosed with atrophic ablation. Patient was told it on Xarelto and amiodarone. Patient also had her metoprolol increased. Patient has continued palpitations and increased heart rate. Patient is now having some shortness of breath and tightness of her chest. Patient has noticed some mild edema. EKG reveals atrial flutter. Patient is being followed by cardiology and plan is possible cardioversion on Tuesday with recommendations for ablation if unsuccessful 11/23/2020 Patient is seen and evaluated in room at bedside; resting comfortably in bed; denies any complaint of chest pain or shortness of breath Vital signs are reviewed; patient remains afebrile; heart rate ranges between 75-133; blood pressure remains stable Labs are reviewed; CBC remained stable; chemical profile shows a sodium of 136 with slight elevation of BUN at 23; blood glucose ranges between 73-149; magnesium low at 1.5; patient is currently on oral magnesium supplement; we will supplement with 2 g IV and wheezy and repeat levels in the morning; patient is scheduled for possible cardioversion tomorrow morning Objective - Vital Signs Vital signs: Vital Signs Temp 97.8 F 11/23/20 11:15 Pulse 117 H 11/23/20 11:15 Resp 18 11/23/20 11:15 BP 118/78 11/23/20 11:15 Pulse Ox 96 11/23/20 11:15 Intake & Output 11/22/20 11/23/20 11/23/20 18:59 06:59 18:59 Intake Total 600 480 240 Output Total 300 600 Balance 300 480 -360 Weight 60.4 kg Intake: Oral 600 480 240 Output: Urine 300 600 Other: Voiding Method Toilet Toilet # Voids 2 2 # Bowel Movements 3 - Exam - Constitutional General appearance: Present: average body habitus, cooperative, no acute distress - EENT Eyes: Present: anicteric sclerae, EOMI, PERRLA, normal appearance ENT: Present: hearing grossly normal, normal oropharynx Ears: bilateral: normal - Neck Neck: Present: normal ROM. Absent: lymphadenopathy, rigidity, thyromegaly Carotids: negative: bruit present Thyroid: bilateral: normal size, negative: enlarged, nodule - Respiratory Respiratory: bilateral: CTA, negative: rales, rhonchi, wheezing - Cardiovascular Rhythm: regular Heart sounds: normal: S1, S2 Abnormal Heart Sounds: Absent: systolic murmur, diastolic murmur - Gastrointestinal General gastrointestinal: Present: normal bowel sounds, soft. Absent: distended, organomegaly, tenderness - Genitourinary Genitourinary Comment(s): deferred - Integumentary Integumentary: Present: normal turgor. Absent: jaundiced, rash, ulcer - Neurologic Neurologic: Present: CNII-XII intact. Absent: focal deficits - Musculoskeletal Musculoskeletal: Present: gait normal, strength equal bilaterally - Psychiatric Psychiatric: Present: A&O x's 3, appropriate affect, intact judgment & insight - Labs CBC & Chem 7: 11/23/20 06:42 11/23/20 06:42 Labs: Abnormal Lab Results - Last 24 Hours (Table) 11/22/20 11/23/20 11/23/20 Range/Units 20:46 06:12 06:42 Sodium 136 L (137-145) mmol/L Carbon Dioxide 33 H (22-30) mmol/L BUN 23 H (7-17) mg/dL Glucose 170 H (74-99) mg/dL POC Glucose (mg/dL) 73 L 148 H (75-99) mg/dL Magnesium (1.6-2.3) mg/dL 11/23/20 11/23/20 Range/Units 06:42 11:55 Sodium (137-145) mmol/L Carbon Dioxide (22-30) mmol/L BUN (7-17) mg/dL Glucose (74-99) mg/dL POC Glucose (mg/dL) 149 H (75-99) mg/dL Magnesium 1.5 L (1.6-2.3) mg/dL Assessment and Plan Assessment: 1.New onset typical atrial flutter with rapid ventricular rate - Increase Toprol to 75 mg twice a day. Give first dose now and discontinue Cardizem infusion at 1400. Continue Xarelto for thromboembolic protection. 2. Hypomagnesemia - Continue to replace magnesium per protocol; monitor electrolytes closely 3. Transaminitis; We will repeat liver function test and plan to consult GI if liver enzymes remain elevated 4. Hypertension; Increase Toprol to 75 mg twice a day. 5. Dyslipidemia; Lipitor 40 mg by mouth daily at bedtime 6. Diabetes mellitus; Metformin thousand milligrams twice a day, Actos 30 mg daily, Accu-Cheks every before meals and at bedtime DVT prophylaxis; Continue Xarelto CODE STATUS; full code
[2020-11-23] MEDS: SODIUM CHLORIDE 0.9% 1,000 ML IV SCH (14:42)
[2020-11-23 17:16] LABS: Glucose,Whole Blood 132 mg/dL (75-99)
[2020-11-23 20:22] LABS: Glucose,Whole Blood 145 mg/dL (75-99)
[2020-11-23] MEDS: ATORVASTATIN 40 MG TAB PO SCH (20:38)
[2020-11-24] MEDS: INSULIN ASPART (NovoLOG) 100 UNIT/ML VIAL SQ SCH ×4 (06:22→20:43)
[2020-11-24] MEDS: metFORMIN 500 MG TAB PO SCH ×2 (06:22→17:01)
[2020-11-24] MEDS: PANTOPRAZOLE 40 MG TABLET PO SCH (06:22)
[2020-11-24 06:36] LABS: Glucose,Whole Blood 149 mg/dL (75-99)
[2020-11-24 07:02] LABS: Basophils % (A) 1 %; Eosinophils # (A) 0.2 k/uL (0-0.7); Eosinophils % (A) 2 %; HCT 33.5 % (34.0-46.0); Lymphocytes % (A) 13 %; MCH 30.7 pg (25.0-35.0); Mean Platelet Volume 7.2; Monocytes # (A) 0.6 k/uL (0-1.0); Monocytes % (A) 7 %; Neutrophils # (A) 5.7 k/uL (1.3-7.7); Neutrophils % (A) 76 %; Platelet Count 181 k/uL (150-450); WBC 7.5 k/uL (3.8-10.6)
[2020-11-24 07:19] LABS: Potassium 4.4 mmol/L (3.5-5.1)
[2020-11-24 07:20] LABS: ALT 72 U/L (4-34); AST 18 U/L (14-36); African American GFR (CKD) >90 (>60 ml/min/1.73 sqM); Albumin 3.2 g/dL (3.5-5.0); Alkaline Phosphatase 54 U/L (38-126); Anion Gap 7 mmol/L; Blood Urea Nitrogen 20 mg/dL (7-17); Calcium 8.6 mg/dL (8.4-10.2); Carbon Dioxide 29 mmol/L (22-30); Chloride 102 mmol/L (98-107); Glucose 155 mg/dL (74-99); Magnesium 1.6 mg/dL (1.6-2.3); Non-African American GFR(CKD) 84 (>60 ml/min/1.73 sqM); Sodium 138 mmol/L (137-145); Total Bilirubin 0.4 mg/dL (0.2-1.3); Total Protein 5.7 g/dL (6.3-8.2)
[2020-11-24] MEDS ORDERED: PROPOFOL 10 MG/ML 20 ML VIAL IV ONE (07:52)
[2020-11-24] MEDS ORDERED: LIDOCAINE 1% INJ 10MG/ML (20 ML MDV) ONE ×2 (07:52)
[2020-11-24] MEDS ORDERED: SODIUM CHLORIDE 0.9% 500 ML 500 ML IV ONE (08:05)
--- NOTE | 2020-11-24 09:12 | ECHOT ---
TRANSESOPHAGEAL ECHOCARDIOGRAM INDICATION: Evaluation left atrial appendage. PROCEDURE: After explaining the procedure to the patient, its risks and the complications, her blood pressure, heart rate, O2 saturation were monitored. The throat was sprayed with Cetacaine. She received sedation per anesthesia department. The probe was introduced in the esophagus without difficulty. Images were obtained. Following that, the probe was removed. There was no immediate complication. FINDINGS: Left atrial size is dilated. Right atrial size is normal. Left atrial appendage revealed evidence of a thrombus. Left ventricular size is normal. There is mild global hypokinesis, estimated ejection fraction 45%. The aortic valve is a bioprosthetic aortic valve with normal opening. Mitral valve appears to be normal. Tricuspid valve is normal. Descending thoracic aorta appears to be normal. Contrast bubble study revealed no shunting across the interatrial septum. No pericardial effusion was noted. Doppler pulse wave and color Doppler obtained revealed moderate mitral and tricuspid regurgitation with mild aortic regurgitation. There was no shunting by color Doppler study. CONCLUSION: 1. Dilated left atrium with left atrial appendage thrombus. 2. Normal left ventricular size with mild global hypokinesis. 3. Bioprosthetic aortic valve with mild aortic regurgitation. 4. Moderate mitral and tricuspid regurgitation. 5. Normal appearance of the descending thoracic aorta. MMODL / IJN: [id number] /
[2020-11-24] MEDS: DILTIAZEM ORAL 30 MG TAB PO SCH ×3 (09:17→20:02)
[2020-11-24] MEDS: RIVAROXABAN 20 MG TAB PO SCH (09:17)
[2020-11-24] MEDS: PIOGLITAZONE 30 MG TAB PO SCH (09:17)
[2020-11-24] MEDS: METOPROLOL SUCCINATE (ER) 25 MG TAB.ER.24H PO SCH ×2 (09:17→20:02)
[2020-11-24] MEDS: FUROSEMIDE 20 MG TAB PO SCH (09:17)
[2020-11-24] MEDS: MAGNESIUM OXIDE 400 MG TAB PO SCH ×2 (09:17→20:02)
[2020-11-24] MEDS: CALCIUM CARBONATE 500 MG CHEWABLE PO SCH (11:30)
[2020-11-24] MEDS: FERROUS SULFATE 325 MG TAB PO SCH (11:30)
[2020-11-24] MEDS: CYANOCOBALAMIN 500 MCG TAB PO SCH (11:30)
[2020-11-24] MEDS: SODIUM CHLORIDE 0.9% 1,000 ML IV SCH ×2 (11:31→15:24)
[2020-11-24 11:41] LABS: Glucose,Whole Blood 285 mg/dL (75-99)
[2020-11-24] MEDS: CHOLECALCIFEROL 10 MCG (400 IU) TABLET PO SCH (12:05)
[2020-11-24] MEDS ORDERED: Magnesium Replacement Protocol 1 EACH MISC MISCELLANE PRN (14:50)
[2020-11-24] MEDS: MAGNESIUM SULFATE-D5W PMX 1 GM in DEXTROSE/WATER 1 100ML.BAG IVPB SCH ×2 (15:24→17:01)
[2020-11-24 16:41] LABS: Glucose,Whole Blood 136 mg/dL (75-99)
[2020-11-24] MEDS: ATORVASTATIN 40 MG TAB PO SCH (20:02)
[2020-11-24 20:34] LABS: Glucose,Whole Blood 142 mg/dL (75-99)
[2020-11-25 06:05] LABS: Glucose,Whole Blood 170 mg/dL (75-99)
[2020-11-25] MEDS: INSULIN ASPART (NovoLOG) 100 UNIT/ML VIAL SQ SCH ×2 (06:22→12:10)
[2020-11-25] MEDS: PANTOPRAZOLE 40 MG TABLET PO SCH (06:22)
[2020-11-25] MEDS: metFORMIN 500 MG TAB PO SCH (06:22)
[2020-11-25 08:09] LABS: Basophils % (A) 1 %; Eosinophils # (A) 0.1 k/uL (0-0.7); Eosinophils % (A) 2 %; HGB 11.1 gm/dL (11.4-16.0); Lymphocytes # (A) 0.8 k/uL (1.0-4.8); Lymphocytes % (A) 14 %; MCH 30.6 pg (25.0-35.0); MCHC 32.7 g/dL (31.0-37.0); MCV 93.6 fL (80.0-100.0); Mean Platelet Volume 7.3; Monocytes # (A) 0.5 k/uL (0-1.0); Monocytes % (A) 9 %; Neutrophils # (A) 4.4 k/uL (1.3-7.7); Neutrophils % (A) 74 %; Platelet Count 187 k/uL (150-450); RBC 3.63 m/uL (3.80-5.40); RDW 14.2 % (11.5-15.5)
[2020-11-25 08:29] LABS: African American GFR (CKD) >90 (>60 ml/min/1.73 sqM); Anion Gap 6 mmol/L; Blood Urea Nitrogen 13 mg/dL (7-17); Calcium 8.7 mg/dL (8.4-10.2); Carbon Dioxide 30 mmol/L (22-30); Chloride 101 mmol/L (98-107); Glucose 136 mg/dL (74-99); Magnesium 1.9 mg/dL (1.6-2.3); Non-African American GFR(CKD) 87 (>60 ml/min/1.73 sqM); Potassium 4.4 mmol/L (3.5-5.1); Sodium 137 mmol/L (137-145)
[2020-11-25 08:37] VITALS: PULSE 128
[2020-11-25] MEDS: DILTIAZEM ORAL 30 MG TAB PO SCH (09:50)
[2020-11-25] MEDS: FUROSEMIDE 20 MG TAB PO SCH (09:50)
[2020-11-25] MEDS: MAGNESIUM OXIDE 400 MG TAB PO SCH (09:51)
[2020-11-25] MEDS: METOPROLOL SUCCINATE (ER) 25 MG TAB.ER.24H PO SCH (09:51)
[2020-11-25] MEDS: RIVAROXABAN 20 MG TAB PO SCH (09:53)
--- NOTE | 2020-11-25 10:02 | P.PN ---
Subjective Progress Note Date: 11/24/20 Principal diagnosis: Atrial flutter with RVR 75-year-old female presenting to the emergency Department with complaints of palpitations. Onset of symptoms was less than a week ago. Patient saw her doctor 3 days ago and was diagnosed with atrophic ablation. Patient was told it on Xarelto and amiodarone. Patient also had her metoprolol increased. Patient has continued palpitations and increased heart rate. Patient is now having some shortness of breath and tightness of her chest. Patient has noticed some mild edema. EKG reveals atrial flutter. Patient is being followed by cardiology and plan is possible cardioversion on Tuesday with recommendations for ablation if unsuccessful 11/23/2020 Patient is seen and evaluated in room at bedside; resting comfortably in bed; denies any complaint of chest pain or shortness of breath Vital signs are reviewed; patient remains afebrile; heart rate ranges between 75-133; blood pressure remains stable Labs are reviewed; CBC remained stable; chemical profile shows a sodium of 136 with slight elevation of BUN at 23; blood glucose ranges between 73-149; magnesium low at 1.5; patient is currently on oral magnesium supplement; we will supplement with 2 g IV and wheezy and repeat levels in the morning; patient is scheduled for possible cardioversion tomorrow morning 11/24/2020 Patient is currently lying in the bed comfortably. Awake alert and oriented 3. No complaints of chest pain or palpitations. No shortness of breath. Heart rate is controlled with Cardizem by mouth and also on metoprolol 75 mg twice a day. Patient underwent HARJINDER today but cardioversion could not be done due to left atrial appendage thrombus. Normal LV size with global hypokinesis. Bioprosthetic I atypical valve with mild ID regurgitation. Moderate mitral and tricuspid regurgitation was noted. Patient is being continued on anticoagulation with Eliquis. Cardiology is on board. no nausea vomiting or abdominal pain or diarrhea. Current medications reviewed. Objective - Vital Signs Vital signs: Vital Signs Temp 97.8 F 11/24/20 11:28 Pulse 88 11/24/20 11:28 Resp 18 11/24/20 11:28 BP 92/53 11/24/20 11:28 Pulse Ox 96 11/24/20 11:28 Intake & Output 11/23/20 11/24/20 11/24/20 18:59 06:59 18:59 Intake Total 480 290 450 Output Total 600 200 Balance -120 90 450 Weight 61 kg Intake: IV 100 Intake, IV Titration 50 Amount Diltiazem 125 mg In 50 Sodium Chloride 0.9% 100 ml @ 5 MG/HR 5 mls/hr IV .Q24H [facility] Rx#:[id number] Oral 480 240 350 Output: Urine 600 200 Other: Voiding Method Toilet Toilet Toilet # Voids 3 1 # Bowel Movements 3 - Exam - Exam - Constitutional General appearance: Present: average body habitus, cooperative, no acute distress - EENT Eyes: Present: anicteric sclerae, EOMI, PERRLA, normal appearance ENT: Present: hearing grossly normal, normal oropharynx Ears: bilateral: normal - Neck Neck: Present: normal ROM. Absent: lymphadenopathy, rigidity, thyromegaly Carotids: negative: bruit present Thyroid: bilateral: normal size, negative: enlarged, nodule - Respiratory Respiratory: bilateral: CTA, negative: rales, rhonchi, wheezing - Cardiovascular Rhythm: regular Heart sounds: normal: S1, S2 Abnormal Heart Sounds: Absent: systolic murmur, diastolic murmur - Gastrointestinal General gastrointestinal: Present: normal bowel sounds, soft. Absent: distended, organomegaly, tenderness - Genitourinary Genitourinary Comment(s): deferred - Integumentary Integumentary: Present: normal turgor. Absent: jaundiced, rash, ulcer - Neurologic Neurologic: Present: CNII-XII intact. Absent: focal deficits - Musculoskeletal Musculoskeletal: Present: gait normal, strength equal bilaterally - Psychiatric Psychiatric: Present: A&O x's 3, appropriate affect, intact judgment & insight - Labs CBC & Chem 7: 11/25/20 07:17 11/25/20 07:17 Labs: Abnormal Lab Results - Last 24 Hours (Table) 11/23/20 11/23/20 11/24/20 Range/Units 16:57 20:04 06:18 RBC 3.60 L (3.80-5.40) m/uL Hgb 11.0 L (11.4-16.0) gm/dL Hct 33.5 L (34.0-46.0) % BUN (7-17) mg/dL Glucose (74-99) mg/dL POC Glucose (mg/dL) 132 H 145 H (75-99) mg/dL ALT (4-34) U/L Total Protein (6.3-8.2) g/dL Albumin (3.5-5.0) g/dL 11/24/20 11/24/20 11/24/20 Range/Units 06:18 06:21 11:40 RBC (3.80-5.40) m/uL Hgb (11.4-16.0) gm/dL Hct (34.0-46.0) % BUN 20 H (7-17) mg/dL Glucose 155 H (74-99) mg/dL POC Glucose (mg/dL) 149 H 285 H (75-99) mg/dL ALT 72 H (4-34) U/L Total Protein 5.7 L (6.3-8.2) g/dL Albumin 3.2 L (3.5-5.0) g/dL Assessment and Plan Assessment: 1.New onset typical atrial flutter with rapid ventricular rate - Increase Toprol to 75 mg twice a day. Cardizem drip has been discontinued and patient is being continued on Cardizem 30 mg 3 times a day. Continue Xarelto for thromboembolic protection. Status post HARJINDER showed left atrial appendage thrombus. Continue with anti- coagulation for now. Cardioversion could not be done. 2. Hypomagnesemia - Continue to replace magnesium per protocol; monitor electrolytes closely 3. Transaminitis; We will repeat liver function test and plan to consult GI if liver enzymes remain elevated 4. Hypertension; Increase Toprol to 75 mg twice a day. 5. Dyslipidemia; Lipitor 40 mg by mouth daily at bedtime 6. Diabetes mellitus; Metformin thousand milligrams twice a day, Actos 30 mg daily, Accu-Cheks every before meals and at bedtime DVT prophylaxis; Continue Xarelto CODE STATUS; full code Time with Patient: Greater than 30
[2020-11-25] MEDS: PIOGLITAZONE 30 MG TAB PO SCH (11:01)
[2020-11-25] MEDS: SODIUM CHLORIDE 0.9% 1,000 ML IV SCH (11:08)
[2020-11-25 11:29] VITALS: BP 108/74; RESP 18; TEMP 98.3
[2020-11-25 12:10] LABS: Glucose,Whole Blood 159 mg/dL (75-99)
[2020-11-25] MEDS: CYANOCOBALAMIN 500 MCG TAB PO SCH (12:12)
[2020-11-25] MEDS: CHOLECALCIFEROL 10 MCG (400 IU) TABLET PO SCH (12:12)
[2020-11-25] MEDS: FERROUS SULFATE 325 MG TAB PO SCH (12:13)
--- NOTE | 2020-11-25 14:40 | P.PN ---
Subjective Progress Note Date: 11/25/20 HISTORY OF PRESENT ILLNESS: Patient underwent HARJINDER yesterday with Dr. Bond revealing left atrial appendage thrombus. Cardioversion was canceled. Patient examined this morning at the bedside. She denies chest pain or pressure. Denies shortness of breath. PHYSICAL EXAM: VITAL SIGNS: Reviewed. GENERAL: Well-developed in no acute distress. NECK: Supple. No JVD or thyromegaly LUNGS: Respirations even and unlabored. Lungs essentially clear to auscultation bilaterally. HEART: Irregular rate and rhythm. S1 and S2 heard. Systolic murmur noted. EXTREMITIES: Normal range of motion. No clubbing or cyanosis. Peripheral pulses intact. No lower extremity edema ASSESSMENT: New-onset typical atrial flutter with RVR Left atrial appendage thrombus Valvular heart disease, status post prosthetic aortic valve replacement Hypertension Hyperlipidemia Diabetes mellitus Transaminitis PLAN: Continue current cardiac medications Patient may be discharged home today from a cardiac standpoint. She is to follow up outpatient with Dr. Bond Nurse practitioner note has been reviewed by physician. Signing provider agrees with the documented findings, assessment, and plan of care. Objective - Vital Signs Vital signs: Vital Signs Temp 98.3 F 11/25/20 11:24 Pulse 128 H 11/25/20 11:24 Resp 18 11/25/20 11:24 BP 108/74 11/25/20 11:24 Pulse Ox 97 11/25/20 11:24 Intake & Output 11/24/20 11/25/20 11/25/20 18:59 06:59 18:59 Intake Total 1070 780 915 Output Total 1500 400 Balance 1070 -720 515 Weight 59.8 kg Intake: IV 0 Oral 1070 780 915 Output: Urine 1500 400 Other: Voiding Method Toilet Toilet Toilet # Voids 1 1 # Bowel Movements 1 - Labs CBC & Chem 7: 11/25/20 07:17 11/25/20 07:17 Labs: Abnormal Lab Results - Last 24 Hours (Table) 11/24/20 11/24/20 11/25/20 Range/Units 16:39 20:32 06:04 RBC (3.80-5.40) m/uL Hgb (11.4-16.0) gm/dL Lymphocytes # (1.0-4.8) k/uL Glucose (74-99) mg/dL POC Glucose (mg/dL) 136 H 142 H 170 H (75-99) mg/dL 11/25/20 11/25/20 11/25/20 Range/Units 07:17 07:17 12:08 RBC 3.63 L (3.80-5.40) m/uL Hgb 11.1 L (11.4-16.0) gm/dL Lymphocytes # 0.8 L (1.0-4.8) k/uL Glucose 136 H (74-99) mg/dL POC Glucose (mg/dL) 159 H (75-99) mg/dL
--- NOTE | 2020-11-26 11:13 | P.DS ---
Providers Date of admission: 11/20/20 22:29 Expected date of discharge: 11/25/20 Attending physician: Jana Ayoub MD Consults: 11/20/20 22:29 Consult Physician Urgent Consulting Provider: Sandra Bond Consult Reason/Comments: a fib w rvr Do you want consulting provider notified?: Yes Primary care physician: Grant Townsend Hospital Course: Final diagnosis -New-onset typical atrial flutter with rapid ventricular rate -Left atrial appendage thrombus status post HARJINDER -Hypomagnesemia -Transaminitis -Hypertension -dyslipidemia -diabetes mellitus -DVT prophylaxis -GI prophylaxis -Full code Discharge disposition Patient is being discharged in a stable condition with guarded prognosis to home. Patient will follow-up with Dr. Townsend upon discharge. Patient will follow-up outpatient radiology Dr. Bond as discussed and scheduled. Total time taken is greater than 35 minutes. Hospital course This is a 75-year-old female who was recently admitted with atrial flutter with rapid ventricular rate and was being closely monitored. Patient was seen and evaluated by cardiology. Patient underwent HARJINDER showing a left atrial appendage thrombus and cardioversion was not done. Patient was continued on Xarelto and will continue in the outpatient setting. Patient also was on Cardizem along with metoprolol and will continue. Patient will be following up with cardiology Dr. Bond in the outpatient setting within the next 2 weeks. Currently no reports of chest pain, shortness of breath, or palpitations. Patient is afebrile. No reports of nausea or vomiting and patient is tolerating diet. Patient instructed to limit activity until follow-up with cardiology and monitor heart rate and keep a diary for cardiology follow-up. Patient also instructed to return to the emergency department in the event of heart rate being elevated above 1:30 or if experiencing any symptoms of syncope, lightheadedness, dizziness, or chest pains. She verbalized understanding and family member at the bedside as well. Patient will be discharged to home today. Guarded prognosis. On exam vital signs are stable. Cardio S1, S2 are muffled. Respiratory shows diminished breath sounds at the bases with no wheezing or rhonchi noted. Abdomen is soft and nontender. Nervous system shows no focal deficits. Please refer to medication reconciliation sheet for a list of medications. Patient Condition at Discharge: Stable Plan - Discharge Summary Discharge Rx Participant: No New Discharge Prescriptions: New Diltiazem Oral [Cardizem] 30 mg PO TID #90 tab Furosemide [Lasix] 20 mg PO DAILY #90 tab Metoprolol Succinate (ER) [Toprol XL] 75 mg PO BID #270 tab.er.24h Loperamide [Imodium] 2 mg PO QID PRN cap PRN Reason: Diarrhea Magnesium Oxide [Mag-Ox] 400 mg PO BID 30 Days #60 tab Continue metFORMIN HCL 1,000 mg PO BID Omeprazole [PriLOSEC] 20 mg PO DAILY Atorvastatin [Lipitor] 40 mg PO HS sitaGLIPtin [Januvia] 100 mg PO DAILY Calcium Carbonate [Calcium] 600 mg PO W/LUNCH Ferrous Sulfate [Iron (65 MG Elemental)] 65 mg PO W/LUNCH Cholecalciferol [Vitamin D3 (10 Mcg = 400 Iu)] 800 unit PO W/LUNCH Cyanocobalamin (Vitamin B-12) [Vitamin B-12] 1,000 mcg PO W/LUNCH Pioglitazone [Actos] 30 mg PO DAILY Ubidecarenone [Co Q-10] 300 mg PO W/LUNCH Rivaroxaban [Xarelto] 20 mg PO DAILY #30 tab Discontinued Amiodarone [Cordarone] 200 mg PO BID lisinopriL [Prinivil] 20 mg PO DAILY Metoprolol Succinate [Toprol XL] 50 mg PO BID Rivaroxaban [Xarelto] 20 mg PO DAILY Discharge Medication List Atorvastatin [Lipitor] 40 mg PO HS 01/24/17 [History] Omeprazole [PriLOSEC] 20 mg PO DAILY 01/24/17 [History] metFORMIN HCL 1,000 mg PO BID 01/24/17 [History] sitaGLIPtin [Januvia] 100 mg PO DAILY 01/24/17 [History] Calcium Carbonate [Calcium] 600 mg PO W/LUNCH 11/04/17 [History] Cholecalciferol [Vitamin D3 (10 Mcg = 400 Iu)] 800 unit PO W/LUNCH 11/04/17 [History] Cyanocobalamin (Vitamin B-12) [Vitamin B-12] 1,000 mcg PO W/LUNCH 11/04/17 [History] Ferrous Sulfate [Iron (65 MG Elemental)] 65 mg PO W/LUNCH 11/04/17 [History] Pioglitazone [Actos] 30 mg PO DAILY 11/21/20 [History] Rivaroxaban [Xarelto] 20 mg PO DAILY #30 tab 11/21/20 [Rx] Ubidecarenone [Co Q-10] 300 mg PO W/LUNCH 11/21/20 [History] Diltiazem Oral [Cardizem] 30 mg PO TID #90 tab 11/25/20 [Rx] Furosemide [Lasix] 20 mg PO DAILY #90 tab 11/25/20 [Rx] Loperamide [Imodium] 2 mg PO QID PRN cap 11/25/20 [Rx] Magnesium Oxide [Mag-Ox] 400 mg PO BID 30 Days #60 tab 11/25/20 [Rx] Metoprolol Succinate (ER) [Toprol XL] 75 mg PO BID #270 tab.er.24h 11/25/20 [Rx] Follow up Appointment(s)/Referral(s): Sandra Bond MD [STAFF PHYSICIAN] - 12/03/20 2:45 pm Grant Townsend MD [Primary Care Provider] - 12/01/20 11:30 am Patient Instructions/Handouts: A-fib (Atrial Fibrillation) (DC) Activity/Diet/Wound Care/Special Instructions: Xarelto script filled at [facility] in [facility] is $9.60 Activity Limited until follow-up Follow-up with primary care provider upon discharge Continue current diet Continue with medications as prescribed Follow-up cardiology outpatient as discussed and scheduled Continue Xarelto Discharge Disposition: HOME SELF-CARE
== END 2020-11-25 13:25 | disposition home or self-care (01) | DRG 310 ==
LOC: EC 20:47 → 3SCARD 22:29
PROVIDERS: ADMIT Internal Medicine; ATTEND Internal Medicine
PROC: B246ZZ4 Ultrasonography of Right and Left Heart, Transesophageal (ICD-10-PCS; principal; 2020-11-24 12:00)
DX: I48.3 Typical atrial flutter (principal); E11.9 Type 2 diabetes mellitus without complications; E78.5 Hyperlipidemia, unspecified; E83.42 Hypomagnesemia; F41.9 Anxiety disorder, unspecified; I08.3 Combined rheumatic disorders of mitral, aortic and tricuspid valves; I10 Essential (primary) hypertension; I25.10 Atherosclerotic heart disease of native coronary artery without angina pectoris; I45.89 Other specified conduction disorders; I48.91 Unspecified atrial fibrillation; I51.3 Intracardiac thrombosis, not elsewhere classified; Z98.51 Tubal ligation status; Z79.01 Long term (current) use of anticoagulants; Z79.82 Long term (current) use of aspirin; Z79.84 Long term (current) use of oral hypoglycemic drugs; Z79.899 Other long term (current) drug therapy; Z90.710 Acquired absence of both cervix and uterus; Z95.2 Presence of prosthetic heart valve; Z96.641 Presence of right artificial hip joint
CPT/HCPCS: 36415; 71046; 80048; 80053; 83735; 83880; 84439; 84443; 84481; 84484; 85025; 85610; 85730; 92960; 93005; 93312; 93320; 93325; 96365; 96366; 96368; 96375; 99291

== ENCOUNTER 2020-11-28 00:17 | Inpatient (IN) | payer MEDICARE ==
[2020-11-28] MEDS ORDERED: SODIUM CHLORIDE 0.9% 1,000 ML IV STA (00:30)
--- NOTE | 2020-11-28 00:30 | ED ---
Arrhythmia/Palpitations HPI - General Chief Complaint: Arrhythmia/Palpitations Stated Complaint: Palpitations Time Seen by Provider: 11/28/20 00:26 Source: patient, family, RN notes reviewed, old records reviewed Mode of arrival: wheelchair Limitations: no limitations - History of Present Illness Initial Comments: This is a 75-year-old female to the ER for evaluation patient was told to come the hospital heart rate ever becomes elevated. Patient presents today Dese for elevated heart rate. Patient has taking all medications as prescribed. Does ad abhishek to feeling weak with no recent nausea vomiting or diarrhea. No other complaints MD Complaint: rapid heart beat, "heart racing", palpitations, atrial fibrillation -: hour(s) Arrhythmia History: atrial fibrillation Associated Symptoms: denies other symptoms Treatments Prior to Arrival: beta-joi, calcium channel joi - Related Data Home Medications Medication Instructions Recorded Confirmed RX: Atorvastatin [Lipitor] 40 mg PO HS 01/24/17 11/21/20 RX: Omeprazole [PriLOSEC] 20 mg PO DAILY 01/24/17 11/21/20 RX: metFORMIN HCL 1,000 mg PO BID 01/24/17 11/21/20 RX: sitaGLIPtin [Januvia] 100 mg PO DAILY 01/24/17 11/21/20 RX: Calcium Carbonate [Calcium] 600 mg PO W/LUNCH 11/04/17 11/21/20 RX: Cholecalciferol [Vitamin D3 800 unit PO W/LUNCH 11/04/17 11/21/20 (10 Mcg = 400 Iu)] RX: Cyanocobalamin (Vitamin B-12) 1,000 mcg PO W/LUNCH 11/04/17 11/21/20 [Vitamin B-12] RX: Ferrous Sulfate [Iron (65 MG 65 mg PO W/LUNCH 11/04/17 11/21/20 Elemental)] RX: Pioglitazone [Actos] 30 mg PO DAILY 11/21/20 11/21/20 RX: Ubidecarenone [Co Q-10] 300 mg PO W/LUNCH 11/21/20 11/21/20 Previous Rx's Medication Instructions Recorded RX: Rivaroxaban [Xarelto] 20 mg PO DAILY #30 tab 11/21/20 Diltiazem Oral [Cardizem] 30 mg PO TID #90 tab 11/25/20 RX: Furosemide [Lasix] 20 mg PO DAILY #90 tab 11/25/20 RX: Loperamide [Imodium] 2 mg PO QID PRN cap 11/25/20 RX: Magnesium Oxide [Mag-Ox] 400 mg PO BID 30 Days #60 tab 11/25/20 RX: Metoprolol Succinate (ER) 75 mg PO BID #270 tab.er.24h 11/25/20 [Toprol XL] Allergies Allergy/AdvReac Type Severity Reaction Status Date / Time Penicillins Allergy Rash/Hives Verified 11/28/20 00:23 Review of Systems ROS Statement: Those systems with pertinent positive or pertinent negative responses have been documented in the HPI. ROS Other: All systems not noted in ROS Statement are negative. Past Medical History Past Medical History: Atrial Fibrillation, Coronary Artery Disease (CAD), Diabetes Mellitus, GERD/Reflux, Hyperlipidemia, Hypertension, Osteoarthritis (OA) Additional Past Medical History / Comment(s): heart murmur, born with bicuspid aorta, diarrhea, "leaky bladder" History of Any Multi-Drug Resistant Organisms: None Reported Past Surgical History: Bladder Surgery, Cardiac Valve Replacement, Heart Catheterization, Hysterectomy, Joint Replacement, Tubal Ligation Additional Past Surgical History / Comment(s): rt hip replacement, HARJINDER, bladder suspension x 2, Past Anesthesia/Blood Transfusion Reactions: Previous Problems w/ Anesthesia, Motion Sickness Additional Past Anesthesia/Blood Transfusion Reaction / Comment(s): "long time coming out" Past Psychological History: Anxiety Smoking Status: Never smoker Past Alcohol Use History: None Reported Past Drug Use History: Unable to Obtain - Past Family History Father Family Medical History: Cancer Daughter(s) Family Medical History: Cancer General Exam Limitations: no limitations General appearance: alert, in no apparent distress, anxious, in distress Head exam: Present: atraumatic, normocephalic, normal inspection Eye exam: Present: normal appearance, PERRL, EOMI. Absent: scleral icterus, conjunctival injection, periorbital swelling ENT exam: Present: normal exam, mucous membranes moist Neck exam: Present: normal inspection. Absent: tenderness, meningismus, lymphadenopathy Respiratory exam: Present: normal lung sounds bilaterally. Absent: respiratory distress, wheezes, rales, rhonchi, stridor Cardiovascular Exam: Present: tachycardia, irregular rhythm, normal heart sounds. Absent: systolic murmur, diastolic murmur, rubs, gallop, clicks GI/Abdominal exam: Present: soft, normal bowel sounds. Absent: distended, tenderness, guarding, rebound, rigid Extremities exam: Present: normal inspection, full ROM, normal capillary refill. Absent: tenderness, pedal edema, joint swelling, calf tenderness Back exam: Present: normal inspection Neurological exam: Present: alert, oriented X3, CN II-XII intact Psychiatric exam: Present: normal affect, normal mood Skin exam: Present: warm, dry, intact, normal color. Absent: rash Course Vital Signs 11/28/20 11/28/20 11/28/20 00:18 00:40 01:57 Temperature 98.8 F Pulse Rate 127 H 125 H Pulse Rate [ 126 H Zinc Skimmer ] Respiratory 22 20 Rate Blood Pressure 125/71 124/89 O2 Sat by Pulse 99 98 Oximetry - Reevaluation(s) Reevaluation #1: 11/28/20 03:20 Medical record is reviewed Reevaluation #2: 11/28/20 03:20 Heart rate difficult to control here in the ER patient given multiple medications for heart rate control still feeling very weak and short of breath Reevaluation #3: 11/28/20 03:20 Spoke with patient regarding findings and results questions are answered - Consultations Consultation #1: Spoke with [facility] were agreed to admit this patient EKG Findings - EKG Comments: EKG Findings:: EKG is sinus tachycardia 127, GA 162 QRS 72 QTC 433 Medical Decision Making - Lab Data Result diagrams: 11/28/20 00:46 11/28/20 00:46 Lab Results 11/28/20 11/28/20 11/28/20 Range/Units 00:46 00:46 00:46 WBC 8.3 (3.8-10.6) k/uL RBC 3.70 L (3.80-5.40) m/uL Hgb 11.2 L (11.4-16.0) gm/dL Hct 33.9 L (34.0-46.0) % MCV 91.7 (80.0-100.0) fL MCH 30.3 (25.0-35.0) pg MCHC 33.1 (31.0-37.0) g/dL RDW 13.9 (11.5-15.5) % Plt Count 222 (150-450) k/uL MPV 7.2 Neutrophils % 77 % Lymphocytes % 12 % Monocytes % 8 % Eosinophils % 1 % Basophils % 0 % Neutrophils # 6.3 (1.3-7.7) k/uL Lymphocytes # 1.0 (1.0-4.8) k/uL Monocytes # 0.7 (0-1.0) k/uL Eosinophils # 0.1 (0-0.7) k/uL Basophils # 0.0 (0-0.2) k/uL PT 14.1 H (9.0-12.0) sec INR 1.4 H (<1.2) APTT 31.9 H (22.0-30.0) sec Sodium 130 L (137-145) mmol/L Potassium 4.7 (3.5-5.1) mmol/L Chloride 94 L (98-107) mmol/L Carbon Dioxide 26 (22-30) mmol/L Anion Gap 10 mmol/L BUN 26 H (7-17) mg/dL Creatinine 0.81 (0.52-1.04) mg/dL Est GFR (CKD-EPI)AfAm 83 (>60 ml/min/1.73 sqM) Est GFR (CKD-EPI)NonAf 72 (>60 ml/min/1.73 sqM) Glucose 170 H (74-99) mg/dL Plasma Lactic Acid [place] (0.7-2.0) mmol/L Calcium 8.9 (8.4-10.2) mg/dL Phosphorus 3.2 (2.5-4.5) mg/dL Magnesium 1.3 L (1.6-2.3) mg/dL Total Bilirubin 0.6 (0.2-1.3) mg/dL AST 32 (14-36) U/L ALT 61 H (4-34) U/L Alkaline Phosphatase 71 (38-126) U/L Creatine Kinase 75 (30-135) U/L Troponin I (0.000-0.034) ng/mL NT-Pro-B Natriuret Pep pg/mL Total Protein 6.6 (6.3-8.2) g/dL Albumin 3.7 (3.5-5.0) g/dL TSH 4.350 (0.465-4.680) mIU/L Urine Color Urine Appearance (Clear) Urine pH (5.0-8.0) Ur Specific [place] (1.001-1.035) Urine Protein (Negative) Urine Glucose (UA) (Negative) Urine Ketones (Negative) Urine Blood (Negative) Urine Nitrite (Negative) Urine Bilirubin (Negative) Urine Urobilinogen (<2.0) mg/dL Ur Leukocyte Esterase (Negative) Urine WBC (0-5) /hpf Urine Bacteria (None) /hpf Hyaline Casts (0-2) /lpf Urine Mucus (None) /hpf 11/28/20 11/28/20 11/28/20 Range/Units 00:46 00:46 00:46 WBC (3.8-10.6) k/uL RBC (3.80-5.40) m/uL Hgb (11.4-16.0) gm/dL Hct (34.0-46.0) % MCV (80.0-100.0) fL MCH (25.0-35.0) pg MCHC (31.0-37.0) g/dL RDW (11.5-15.5) % Plt Count (150-450) k/uL MPV Neutrophils % % Lymphocytes % % Monocytes % % Eosinophils % % Basophils % % Neutrophils # (1.3-7.7) k/uL Lymphocytes # (1.0-4.8) k/uL Monocytes # (0-1.0) k/uL Eosinophils # (0-0.7) k/uL Basophils # (0-0.2) k/uL PT (9.0-12.0) sec INR (<1.2) APTT (22.0-30.0) sec Sodium (137-145) mmol/L Potassium (3.5-5.1) mmol/L Chloride (98-107) mmol/L Carbon Dioxide (22-30) mmol/L Anion Gap mmol/L BUN (7-17) mg/dL Creatinine (0.52-1.04) mg/dL Est GFR (CKD-EPI)AfAm (>60 ml/min/1.73 sqM) Est GFR (CKD-EPI)NonAf (>60 ml/min/1.73 sqM) Glucose (74-99) mg/dL Plasma Lactic Acid [place] 2.0 (0.7-2.0) mmol/L Calcium (8.4-10.2) mg/dL Phosphorus (2.5-4.5) mg/dL Magnesium (1.6-2.3) mg/dL Total Bilirubin (0.2-1.3) mg/dL AST (14-36) U/L ALT (4-34) U/L Alkaline Phosphatase (38-126) U/L Creatine Kinase (30-135) U/L Troponin I <0.012 (0.000-0.034) ng/mL NT-Pro-B Natriuret Pep 2610 pg/mL Total Protein (6.3-8.2) g/dL Albumin (3.5-5.0) g/dL TSH (0.465-4.680) mIU/L Urine Color Urine Appearance (Clear) Urine pH (5.0-8.0) Ur Specific [place] (1.001-1.035) Urine Protein (Negative) Urine Glucose (UA) (Negative) Urine Ketones (Negative) Urine Blood (Negative) Urine Nitrite (Negative) Urine Bilirubin (Negative) Urine Urobilinogen (<2.0) mg/dL Ur Leukocyte Esterase (Negative) Urine WBC (0-5) /hpf Urine Bacteria (None) /hpf Hyaline Casts (0-2) /lpf Urine Mucus (None) /hpf 11/28/20 Range/Units Unknown WBC (3.8-10.6) k/uL RBC (3.80-5.40) m/uL Hgb (11.4-16.0) gm/dL Hct (34.0-46.0) % MCV (80.0-100.0) fL MCH (25.0-35.0) pg MCHC (31.0-37.0) g/dL RDW (11.5-15.5) % Plt Count (150-450) k/uL MPV Neutrophils % % Lymphocytes % % Monocytes % % Eosinophils % % Basophils % % Neutrophils # (1.3-7.7) k/uL Lymphocytes # (1.0-4.8) k/uL Monocytes # (0-1.0) k/uL Eosinophils # (0-0.7) k/uL Basophils # (0-0.2) k/uL PT (9.0-12.0) sec INR (<1.2) APTT (22.0-30.0) sec Sodium (137-145) mmol/L Potassium (3.5-5.1) mmol/L Chloride (98-107) mmol/L Carbon Dioxide (22-30) mmol/L Anion Gap mmol/L BUN (7-17) mg/dL Creatinine (0.52-1.04) mg/dL Est GFR (CKD-EPI)AfAm (>60 ml/min/1.73 sqM) Est GFR (CKD-EPI)NonAf (>60 ml/min/1.73 sqM) Glucose (74-99) mg/dL Plasma Lactic Acid [place] (0.7-2.0) mmol/L Calcium (8.4-10.2) mg/dL Phosphorus (2.5-4.5) mg/dL Magnesium (1.6-2.3) mg/dL Total Bilirubin (0.2-1.3) mg/dL AST (14-36) U/L ALT (4-34) U/L Alkaline Phosphatase (38-126) U/L Creatine Kinase (30-135) U/L Troponin I (0.000-0.034) ng/mL NT-Pro-B Natriuret Pep pg/mL Total Protein (6.3-8.2) g/dL Albumin (3.5-5.0) g/dL TSH (0.465-4.680) mIU/L Urine Color Light Yellow Urine Appearance Clear (Clear) Urine pH 5.0 (5.0-8.0) Ur Specific [place] 1.013 (1.001-1.035) Urine Protein Negative (Negative) Urine Glucose (UA) Negative (Negative) Urine Ketones Negative (Negative) Urine Blood Negative (Negative) Urine Nitrite Negative (Negative) Urine Bilirubin Negative (Negative) Urine Urobilinogen <2.0 (<2.0) mg/dL Ur Leukocyte Esterase Moderate H (Negative) Urine WBC 28 H (0-5) /hpf Urine Bacteria Few H (None) /hpf Hyaline Casts 1 (0-2) /lpf Urine Mucus Rare H (None) /hpf Critical Care Time Critical Care Time: Yes Total Critical Care Time: 31 Disposition Clinical Impression: Atrial fibrillation with RVR, Tachycardia, Palpitations, Weakness Disposition: ADMITTED IP TO THIS HOSP Condition: Fair Is patient prescribed a controlled substance at d/c from ED?: No Referrals: Grant Townsend MD [Primary Care Provider] - 1-2 days
[2020-11-28 01:03] LABS: Basophils % (A) 0 %; Eosinophils # (A) 0.1 k/uL (0-0.7); Eosinophils % (A) 1 %; HCT 33.9 % (34.0-46.0); HGB 11.2 gm/dL (11.4-16.0); Lymphocytes % (A) 12 %; MCH 30.3 pg (25.0-35.0); MCHC 33.1 g/dL (31.0-37.0); MCV 91.7 fL (80.0-100.0); Mean Platelet Volume 7.2; Monocytes # (A) 0.7 k/uL (0-1.0); Monocytes % (A) 8 %; Neutrophils # (A) 6.3 k/uL (1.3-7.7); Neutrophils % (A) 77 %; Platelet Count 222 k/uL (150-450); RDW 13.9 % (11.5-15.5); WBC 8.3 k/uL (3.8-10.6)
[2020-11-28 01:11] LABS: INR 1.4 (<1.2); Partial Thromboplastin Time 31.9 sec (22.0-30.0); Prothrombin Time 14.1 sec (9.0-12.0)
[2020-11-28] MEDS ORDERED: METOPROLOL TARTRATE 5 MG/5 ML VIAL IVP STA ×2 (01:41→02:54)
[2020-11-28 01:42] LABS: Potassium 4.7 mmol/L (3.5-5.1)
[2020-11-28 01:43] LABS: Appearance,Urine Clear (Clear); Bacteria,Urine Few /hpf; Bilirubin,Urine Negative (Negative); Blood,Urine Negative (Negative); Color,Urine Light Yellow; Glucose,Urine (UA) Negative (Negative); Hyaline Casts,Urine 1 /lpf (0-2); Ketones,Urine Negative (Negative); Leukocyte Esterase,Urine Moderate (Negative); Mucus,Urine Rare /hpf; Nitrite,Urine Negative (Negative); Protein,Urine Negative (Negative); Specific Gravity,Urine 1.013 (1.001-1.035); Urobilinogen,Urine <2.0 mg/dL (<2.0); WBC,Urine 28 /hpf (0-5)
[2020-11-28 01:43] LABS: Albumin 3.7 g/dL (3.5-5.0); Calcium 8.9 mg/dL (8.4-10.2); Magnesium 1.3 mg/dL (1.6-2.3); Phosphorus 3.2 mg/dL (2.5-4.5); Total Bilirubin 0.6 mg/dL (0.2-1.3); Total Protein 6.6 g/dL (6.3-8.2)
[2020-11-28] MEDS ORDERED: ACETAMINOPHEN TAB 325 MG TAB PO STA (01:47)
[2020-11-28] MEDS ORDERED: MAGNESIUM OXIDE 400 MG TAB PO STA (02:14)
[2020-11-28] MEDS: MAGNESIUM SULFATE-D5W PMX 1 GM in DEXTROSE/WATER 1 100ML.BAG IVPB SCH ×2 (02:36→04:08)
[2020-11-28] MEDS ORDERED: DILTIAZEM DRIP BOLUS FROM BAG 1 MG SOLN IV ONE (02:54)
[2020-11-28] MEDS ORDERED: DILTIAZEM 125 MG in SODIUM CHLORIDE 0.9% 100 ML IV SCH (03:00)
[2020-11-28] MEDS ORDERED: NITROGLYCERIN SL TABS 0.4 MG TAB SUBLINGUAL PRN (03:19)
[2020-11-28] MEDS ORDERED: MORPHINE SULFATE 4 MG/ML SYRINGE IV PRN (03:19)
[2020-11-28] MEDS ORDERED: SODIUM CHLORIDE 0.9% 500 ML 500 ML IV ONE (05:45)
[2020-11-28 05:55] LABS: Glucose,Whole Blood 179 mg/dL (75-99)
[2020-11-28] MEDS: RIVAROXABAN 20 MG TAB PO SCH (09:39)
[2020-11-28] MEDS: METOPROLOL SUCCINATE (ER) 25 MG TAB.ER.24H PO SCH ×2 (09:39→20:48)
[2020-11-28] MEDS: FUROSEMIDE 20 MG TAB PO SCH (09:39)
[2020-11-28] MEDS ORDERED: Magnesium Replacement Protocol 1 EACH MISC MISCELLANE PRN (11:12)
--- NOTE | 2020-11-28 11:13 | P.CRDCN ---
History of Present Illness Consult date: 11/28/20 History of present illness: CHIEF COMPLAINT: Tachycardia HISTORY OF PRESENT ILLNESS: This is a 75-year-old female with a past medical history significant for atrial flutter, valvular heart disease status post prosthetic aortic valve replacement, hypertension, diabetes mellitus, and hyperlipidemia. Patient follows in the office with Dr. Bond. We have been asked to see the patient in consultation for tachycardia. Patient was recently hospitalized secondary to atrial flutter. She underwent a HARJINDER on 11/24/2020 revealing left atrial appendage thrombus. Cardioversion was canceled. Patient was discharged home on a beta joi and anticoagulation. Patient presented back to the ER with a chief complaint of low blood pressure. She states she took her blood pressure at home and it was 88/64. She states her heart rate was also high at home. She reports feeling dizzy yesterday and states that she lay down for a little bit and felt better but she decided to come to the emergency room for further evaluation. Patient currently denies chest pain or pressure. She denies shortness of breath. She denies dizziness or lightheadedness. Patient was placed on a Cardizem drip in the emergency room. Blood pressure has been running low overnight and Cardizem drip was stopped this morning. DIAGNOSTICS: EKG reveals atrial flutter Laboratory data: WBC 8.3. Hemoglobin 11.2. Platelet count 222. Sodium 1:30. Potassium 4.7. BUN 26. Creatinine 0.81. Lactic acid 2.0. Current home cardiac medications include Xarelto 20 mg daily, Toprol-XL 75 mg twice a day, Lasix 20 mg daily, Cardizem 30 mg 3 times a day, Lipitor 40 mg daily HARJINDER performed on 11/24/2020 revealed ejection fraction of 45%, left atrial appendage thrombus, bioprosthetic aortic valve with mild aortic regurgitation, moderate mitral and tricuspid regurgitation. REVIEW OF SYSTEMS: At the time of my exam: CONSTITUTIONAL: Denies fever or chills. HEENT: Denies blurred vision, vision changes, or eye pain. Denies hemoptysis CARDIOVASCULAR: Denies chest pain, orthopnea, PND or palpitations RESPIRATORY: No shortness of breath. GASTROINTESTINAL: Denies abdominal pain. Denies nausea or vomiting. HEMATOLOGIC: Denies bleeding disorders. GENITOURINARY: Denies any blood in urine. SKIN: Denies pruitis. Denies rash. PHYSICAL EXAM: VITAL SIGNS: Reviewed. GENERAL: Well-developed in no acute distress. HEENT: Head is normocephalic. Pupils are equal, round. Sclerae anicteric. Mucous membranes of the mouth are moist. Neck supple. No JVD or thyromegaly LUNGS: Respirations even and unlabored. Lungs essentially clear to auscultation bilaterally. HEART: Irregular rate and rhythm. S1 and S2 heard. Systolic murmur noted. ABDOMEN: Soft. Nondistended. Nontender. EXTREMITIES: Normal range of motion. No clubbing or cyanosis. Peripheral pulses intact. No lower extremity edema NEUROLOGIC: Awake and alert. Oriented x 3. 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 Signing provider agrees with the documented findings, assessment, and plan of care. Past Medical History Past Medical History: Atrial Fibrillation, Coronary Artery Disease (CAD), Diabetes Mellitus, GERD/Reflux, Hyperlipidemia, Hypertension, Osteoarthritis (OA) Additional Past Medical History / Comment(s): heart murmur, born with bicuspid aorta, diarrhea, "leaky bladder" History of Any Multi-Drug Resistant Organisms: None Reported Past Surgical History: Bladder Surgery, Cardiac Valve Replacement, Heart Catheterization, Hysterectomy, Joint Replacement, Tubal Ligation Additional Past Surgical History / Comment(s): rt hip replacement, HARJINDER, bladder suspension x 2, Past Anesthesia/Blood Transfusion Reactions: Previous Problems w/ Anesthesia, Motion Sickness Additional Past Anesthesia/Blood Transfusion Reaction / Comment(s): "long time coming out" Past Psychological History: Anxiety Smoking Status: Never smoker Past Alcohol Use History: None Reported Past Drug Use History: Unable to Obtain - Past Family History Father Family Medical History: Cancer Daughter(s) Family Medical History: Cancer Medications and Allergies Home Medications Medication Instructions Recorded Confirmed Type Atorvastatin [Lipitor] 40 mg PO HS 01/24/17 11/28/20 History Omeprazole [PriLOSEC] 20 mg PO DAILY 01/24/17 11/28/20 History metFORMIN HCL 1,000 mg PO BID 01/24/17 11/28/20 History sitaGLIPtin [Januvia] 100 mg PO DAILY 01/24/17 11/28/20 History Calcium Carbonate [Calcium] 600 mg PO W/LUNCH 11/04/17 11/28/20 History Cholecalciferol [Vitamin D3 (10 800 unit PO W/LUNCH 11/04/17 11/28/20 History Mcg = 400 Iu)] Cyanocobalamin (Vitamin B-12) 1,000 mcg PO W/LUNCH 11/04/17 11/28/20 History [Vitamin B-12] Ferrous Sulfate [Iron (65 MG 65 mg PO W/LUNCH 11/04/17 11/28/20 History Elemental)] Pioglitazone [Actos] 30 mg PO DAILY 11/21/20 11/28/20 History Rivaroxaban [Xarelto] 20 mg PO DAILY #30 tab 11/21/20 11/28/20 Rx Ubidecarenone [Co Q-10] 300 mg PO W/LUNCH 11/21/20 11/28/20 History Diltiazem Oral [Cardizem] 30 mg PO TID #90 tab 11/25/20 11/28/20 Rx Furosemide [Lasix] 20 mg PO DAILY #90 tab 11/25/20 11/28/20 Rx Loperamide [Imodium] 2 mg PO QID PRN cap 11/25/20 11/28/20 Rx Magnesium Oxide [Mag-Ox] 400 mg PO BID 30 Days #60 tab 11/25/20 11/28/20 Rx Metoprolol Succinate (ER) [Toprol 75 mg PO BID #270 tab.er.24h 11/25/20 11/28/20 Rx XL] Allergies Allergy/AdvReac Type Severity Reaction Status Date / Time Penicillins Allergy Rash/Hives Verified 11/28/20 00:23 Physical Exam Vitals: Vital Signs Temp Pulse Pulse Resp BP BP Pulse Ox 11/28/20 08:05 128 H 18 11/28/20 08:00 98 F 128 H 18 90/64 97 11/28/20 07:02 85/62 11/28/20 05:40 80/47 11/28/20 04:40 80 11/28/20 04:22 98.1 F 80 17 99/50 97 11/28/20 03:43 78 18 102/73 96 11/28/20 01:57 125 H 20 124/89 98 11/28/20 00:40 126 H 11/28/20 00:18 98.8 F 127 H 22 125/71 99 Intake and Output 11/27/20 11/28/20 11/28/20 22:59 06:59 14:59 Intake Total 10.917 240 Balance 10.917 240 Intake: Intake, IV Titration 10.917 Amount Diltiazem 125 mg In 10.917 Sodium Chloride 0.9% 100 ml @ 5 MG/HR 5 mls/hr IV .Q24H [facility] [place] Rx#:[id number] Oral 240 Other: Voiding Method Toilet Toilet # Voids 1 Weight 63 kg Results 11/28/20 00:46 11/28/20 00:46 Cardiac Enzymes 11/28/20 11/28/20 11/28/20 Range/Units 00:46 00:46 04:31 AST 32 (14-36) U/L Troponin I <0.012 <0.012 (0.000-0.034) ng/mL 11/28/20 Range/Units 07:34 AST (14-36) U/L Troponin I <0.012 (0.000-0.034) ng/mL Coagulation 11/28/20 Range/Units 00:46 PT 14.1 H (9.0-12.0) sec APTT 31.9 H (22.0-30.0) sec CBC 11/28/20 Range/Units 00:46 WBC 8.3 (3.8-10.6) k/uL RBC 3.70 L (3.80-5.40) m/uL Hgb 11.2 L (11.4-16.0) gm/dL Hct 33.9 L (34.0-46.0) % Plt Count 222 (150-450) k/uL Comprehensive Metabolic Panel 11/28/20 Range/Units 00:46 Sodium 130 L (137-145) mmol/L Potassium 4.7 (3.5-5.1) mmol/L Chloride 94 L (98-107) mmol/L Carbon Dioxide 26 (22-30) mmol/L BUN 26 H (7-17) mg/dL Creatinine 0.81 (0.52-1.04) mg/dL Glucose 170 H (74-99) mg/dL Calcium 8.9 (8.4-10.2) mg/dL AST 32 (14-36) U/L ALT 61 H (4-34) U/L Alkaline Phosphatase 71 (38-126) U/L Total Protein 6.6 (6.3-8.2) g/dL Albumin 3.7 (3.5-5.0) g/dL Current Medications Generic Name Dose Route Start Last Admin Trade Name Freq PRN Reason Stop Dose Admin Atorvastatin Calcium 40 mg 11/28/20 21:00 Atorvastatin 40 Mg Tab PO HS JENNIFER Diltiazem HCl 30 mg 11/28/20 09:00 Diltiazem Oral 30 Mg Tab PO TID JENNIFER Furosemide 20 mg 11/28/20 09:00 11/28/20 09:39 Furosemide 20 Mg Tab PO 20 mg DAILY JENNIFER Administration Metoprolol Succinate 75 mg 11/28/20 09:00 11/28/20 09:39 Metoprolol Succinate (Er) 25 Mg Tab.Er.24h PO 75 mg BID JENNIFER Administration Morphine Sulfate 4 mg 11/28/20 03:19 Morphine Sulfate 4 Mg/Ml Syringe IV Q4HR PRN Chest Pain Nitroglycerin 0.4 mg 11/28/20 03:19 Nitroglycerin Sl Tabs 0.4 Mg Tab SUBLINGUAL Q5M PRN Chest Pain Rivaroxaban 20 mg 11/28/20 09:00 11/28/20 09:39 Rivaroxaban 20 Mg Tab PO 20 mg DAILY JENNIFER Administration Intake and Output 11/27/20 11/28/20 11/28/20 22:59 06:59 14:59 Intake Total 10.917 240 Balance 10.917 240 Intake: Intake, IV Titration 10.917 Amount Diltiazem 125 mg In 10.917 Sodium Chloride 0.9% 100 ml @ 5 MG/HR 5 mls/hr IV .Q24H [facility] [place] Rx#:[id number] Oral 240 Other: Voiding Method Toilet Toilet # Voids 1 Weight 63 kg 11/28/20 00:46 11/28/20 00:46
[2020-11-28 11:24] LABS: African American GFR (CKD) >90 (>60 ml/min/1.73 sqM); Anion Gap 6 mmol/L; Blood Urea Nitrogen 18 mg/dL (7-17); Calcium 8.5 mg/dL (8.4-10.2); Carbon Dioxide 27 mmol/L (22-30); Chloride 101 mmol/L (98-107); Glucose 168 mg/dL (74-99); Magnesium 2.1 mg/dL (1.6-2.3); Non-African American GFR(CKD) 88 (>60 ml/min/1.73 sqM); Potassium 4.5 mmol/L (3.5-5.1); Sodium 134 mmol/L (137-145)
[2020-11-28 11:57] LABS: Glucose,Whole Blood 116 mg/dL (75-99)
[2020-11-28] MEDS: DILTIAZEM ORAL 30 MG TAB PO SCH ×3 (12:16→21:58)
[2020-11-28] MEDS: ACETAMINOPHEN TAB 325 MG TAB PO PRN ×2 (12:25→20:38)
[2020-11-28 16:53] LABS: Glucose,Whole Blood 122 mg/dL (75-99)
[2020-11-28 20:47] LABS: Glucose,Whole Blood 182 mg/dL (75-99)
[2020-11-28] MEDS: ATORVASTATIN 40 MG TAB PO SCH (20:48)
--- NOTE | 2020-11-28 22:21 | P.HPIM ---
History of Present Illness H&P Date: 11/28/20 Chief Complaint: Hypotension Patient is a 75-year-old female with a known history of recently diagnosed atrial fibrillation on anticoagulation with Eliquis, coronary artery disease with history of aortic valve replacement, hypertension, hyperlipidemia, diabetes type 2 [id number] who was recently admitted to the hospital due to atrial fibrillation with rapid ventricular rate. Patient had HARJINDER done on 11/24/2020 and was found to have left atrial appendage thrombus and cardioversion could not be done at that time. Patient was discharged home with beta-joi and anticoagulation with Eliquis and follow-up as an outpatient in the cardiology clinic. Patient presents to ER due to hypotension and elevated heart rate. Patient states that she felt dizzy and about to fall at home and check her blood pressure was found to be 88/64 and her heart rate was in the 130s. Patient came to ER for evaluation. Otherwise denied any chest pain or shortness of breath. Currently denied any dizziness or lightheadedness. Patient was started on Cardizem drip and also was given fluid boluses in the ER with improvement in blood pressure currently. Patient states that she did have episodes of diarrhea. No complaints of abdominal pain. No nausea or vomiting. No fever no chills. No cough or sputum production. Denied any lower abdominal pain. No dysuria or hematuria. EKG showed atrial flutter. Laboratory data showed WBC 8.3, hemoglobin 11.2 and platelets 222 INR 1.4 Sodium 130 potassium 4.7 chloride 94 BUN 26 and creatinine 0.81 and magnesium 1.3 TSH 4.35 Samaniego virus PCR is not detected Troponin x3 -. Review of Systems Constitutional: Patient denies any fever or chills . No generalized weakness or weight loss. Abdomen: Patient denied nausea vomiting and diarrhea and abdominal pain. Cardiovascular: Patient denies any chest pain or short of breath no palpitations.Patient did have dizziness and hypotension. No leg swelling. Respiratory: patient denied any cough or sputum production. No shortness of breath Neurologic: Patient denied any numbness or tingling headache. Musculoskeletal: Patient denies any complaints of joint swelling or deformity. Skin: Negative Psychiatric: Negative Endocrine: No heat or cold intolerance. No recent weight gain. Genitourinary: No dysuria or hematuria. All other 14 point ROS negative except the above Past Medical History Past Medical History: Atrial Fibrillation, Coronary Artery Disease (CAD), Diabetes Mellitus, GERD/Reflux, Hyperlipidemia, Hypertension, Osteoarthritis (OA) Additional Past Medical History / Comment(s): heart murmur, born with bicuspid aorta, diarrhea, "leaky bladder" History of Any Multi-Drug Resistant Organisms: None Reported Past Surgical History: Bladder Surgery, Cardiac Valve Replacement, Heart Catheterization, Hysterectomy, Joint Replacement, Tubal Ligation Additional Past Surgical History / Comment(s): rt hip replacement, HARJINDER, bladder suspension x 2, Past Anesthesia/Blood Transfusion Reactions: Previous Problems w/ Anesthesia, Motion Sickness Additional Past Anesthesia/Blood Transfusion Reaction / Comment(s): "long time coming out" Past Psychological History: Anxiety Smoking Status: Never smoker Past Alcohol Use History: None Reported Past Drug Use History: Unable to Obtain - Past Family History Father Family Medical History: Cancer Daughter(s) Family Medical History: Cancer Medications and Allergies Home Medications Medication Instructions Recorded Confirmed Type Atorvastatin [Lipitor] 40 mg PO HS 01/24/17 11/28/20 History Omeprazole [PriLOSEC] 20 mg PO DAILY 01/24/17 11/28/20 History metFORMIN HCL 1,000 mg PO BID 01/24/17 11/28/20 History sitaGLIPtin [Januvia] 100 mg PO DAILY 01/24/17 11/28/20 History Calcium Carbonate [Calcium] 600 mg PO W/LUNCH 11/04/17 11/28/20 History Cholecalciferol [Vitamin D3 (10 800 unit PO W/LUNCH 11/04/17 11/28/20 History Mcg = 400 Iu)] Cyanocobalamin (Vitamin B-12) 1,000 mcg PO W/LUNCH 11/04/17 11/28/20 History [Vitamin B-12] Ferrous Sulfate [Iron (65 MG 65 mg PO W/LUNCH 11/04/17 11/28/20 History Elemental)] Pioglitazone [Actos] 30 mg PO DAILY 11/21/20 11/28/20 History Rivaroxaban [Xarelto] 20 mg PO DAILY #30 tab 11/21/20 11/28/20 Rx Ubidecarenone [Co Q-10] 300 mg PO W/LUNCH 11/21/20 11/28/20 History Diltiazem Oral [Cardizem] 30 mg PO TID #90 tab 11/25/20 11/28/20 Rx Furosemide [Lasix] 20 mg PO DAILY #90 tab 11/25/20 11/28/20 Rx Loperamide [Imodium] 2 mg PO QID PRN cap 11/25/20 11/28/20 Rx Magnesium Oxide [Mag-Ox] 400 mg PO BID 30 Days #60 tab 11/25/20 11/28/20 Rx Metoprolol Succinate (ER) [Toprol 75 mg PO BID #270 tab.er.24h 11/25/20 11/28/20 Rx XL] Allergies Allergy/AdvReac Type Severity Reaction Status Date / Time Penicillins Allergy Rash/Hives Verified 11/28/20 00:23 Physical Exam Vitals: Vital Signs Temp Pulse Pulse Resp BP BP Pulse Ox 11/28/20 08:05 128 H 18 11/28/20 08:00 98 F 128 H 18 90/64 97 11/28/20 07:02 85/62 11/28/20 05:40 80/47 11/28/20 04:40 80 11/28/20 04:22 98.1 F 80 17 99/50 97 11/28/20 03:43 78 18 102/73 96 11/28/20 01:57 125 H 20 124/89 98 11/28/20 00:40 126 H 11/28/20 00:18 98.8 F 127 H 22 125/71 99 Intake and Output 11/27/20 11/28/20 11/28/20 22:59 06:59 14:59 Intake Total 10.917 240 Balance 10.917 240 Intake: Intake, IV Titration 10.917 Amount Diltiazem 125 mg In 10.917 Sodium Chloride 0.9% 100 ml @ 5 MG/HR 5 mls/hr IV .Q24H [facility] Rx#:[id number] Oral 240 Other: Voiding Method Toilet Toilet # Voids 1 Weight 63 kg PHYSICAL EXAMINATION: Patient is lying in the bed comfortably, no acute distress, awake alert and oriented.. HEENT: Normocephalic. Neck is supple. Pupils reactive. Nostrils clear. Oral cavity is moist. Ears reveal no drainage. Neck reveals no JVD, carotid bruits, or thyromegaly. CHEST EXAMINATION: Trachea is central. Symmetrical expansion. Lung amos clear to auscultation and percussion. CARDIAC: Normal S1, S2 with no gallops. No murmurs Irregularly irregular rhythm ABDOMEN: Soft. Bowel sounds normal. No organomegaly. No abdominal bruits. Extremities: reveal no edema. No clubbing or cyanosis Neurologically awake, alert, oriented x3 with well-coordinated movements. No focal deficits noted Skin: No rash or skin lesions. Psychiatric: Coperative. Nonsuicidal Musculoskeletal: No joint swelling or deformity. Normal range of motion. Results CBC & Chem 7: 11/28/20 00:46 11/28/20 07:34 Labs: Abnormal Lab Results - Last 24 Hours (Table) 11/28/20 11/28/20 11/28/20 Range/Units 00:46 00:46 00:46 RBC 3.70 L (3.80-5.40) m/uL Hgb 11.2 L (11.4-16.0) gm/dL Hct 33.9 L (34.0-46.0) % PT 14.1 H (9.0-12.0) sec INR 1.4 H (<1.2) APTT 31.9 H (22.0-30.0) sec Sodium 130 L (137-145) mmol/L Chloride 94 L (98-107) mmol/L BUN 26 H (7-17) mg/dL Glucose 170 H (74-99) mg/dL POC Glucose (mg/dL) (75-99) mg/dL Magnesium 1.3 L (1.6-2.3) mg/dL ALT 61 H (4-34) U/L Ur Leukocyte Esterase (Negative) Urine WBC (0-5) /hpf Urine Bacteria (None) /hpf Urine Mucus (None) /hpf 11/28/20 11/28/20 11/28/20 Range/Units 05:51 07:34 11:55 RBC (3.80-5.40) m/uL Hgb (11.4-16.0) gm/dL Hct (34.0-46.0) % PT (9.0-12.0) sec INR (<1.2) APTT (22.0-30.0) sec Sodium 134 L (137-145) mmol/L Chloride (98-107) mmol/L BUN 18 H (7-17) mg/dL Glucose 168 H (74-99) mg/dL POC Glucose (mg/dL) 179 H 116 H (75-99) mg/dL Magnesium (1.6-2.3) mg/dL ALT (4-34) U/L Ur Leukocyte Esterase (Negative) Urine WBC (0-5) /hpf Urine Bacteria (None) /hpf Urine Mucus (None) /hpf 11/28/20 Range/Units Unknown RBC (3.80-5.40) m/uL Hgb (11.4-16.0) gm/dL Hct (34.0-46.0) % PT (9.0-12.0) sec INR (<1.2) APTT (22.0-30.0) sec Sodium (137-145) mmol/L Chloride (98-107) mmol/L BUN (7-17) mg/dL Glucose (74-99) mg/dL POC Glucose (mg/dL) (75-99) mg/dL Magnesium (1.6-2.3) mg/dL ALT (4-34) U/L Ur Leukocyte Esterase Moderate H (Negative) Urine WBC 28 H (0-5) /hpf Urine Bacteria Few H (None) /hpf Urine Mucus Rare H (None) /hpf Microbiology - Last 24 Hours (Table) 11/28/20 Unknown Urine Culture - Preliminary Urine,Voided Thrombosis Risk Factor Assmnt - DVT/VTE Prophylaxis DVT/VTE Prophylaxis: Pharmacologic Prophylaxis ordered - Choose All That Apply Each Factor Represents 1 point: Obesity (BMI >25) Each Risk Factor Represents 3 Points: Age 75 years or older Thrombosis Risk Factor Assessment Total Risk Factor Score: 4 Thrombosis Risk Factor Assessment Level: Moderate Risk Assessment and Plan Assessment: Atrial flutter. Off Cardizem drip now. Continue with anticoagulation with Xarelto Left atrial appendage thrombus as per HARJINDER done on 11/24/2020 Dizziness likely due to hypotension improved now History of aortic valve replacement with bioprosthetic valve. Possible urinary tract infection Hypovolemic hyponatremia Hypomagnesemia Hypertension patient is hypotensive now GERD Osteoarthritis Diabetes type 2 [id number] History of bladder suspension surgery x2 Anxiety DVT prophylaxis patient is already on Xarelto Plan: Patient will be continued on telemetry monitoring. Off Cardizem drip and start back on metoprolol. Continue with anticoagulation with Xarelto. Patient will be started on ceftriaxone for possible urinary tract infection and follow-up urine culture report. Encourage oral intake. Cardiology is on board and further recommendations based on the clinical course. Time with Patient: Greater than 30
[2020-11-28] MEDS: INSULIN ASPART (NovoLOG) 100 UNIT/ML VIAL SQ SCH (22:23)
[2020-11-29 05:52] LABS: Cholesterol 119 mg/dL (<200); HDL Cholesterol 47 mg/dL (40-60); LDL Cholesterol,Calculated 51 mg/dL (0-99); Triglycerides 106 mg/dL (<150)
[2020-11-29 06:10] LABS: Glucose,Whole Blood 157 mg/dL (75-99)
[2020-11-29] MEDS: INSULIN ASPART (NovoLOG) 100 UNIT/ML VIAL SQ SCH ×4 (06:44→20:46)
[2020-11-29] MEDS ORDERED: INSULIN ASPART (NovoLOG) 100 UNIT/ML VIAL SQ SCH (07:30)
[2020-11-29] MEDS: FUROSEMIDE 20 MG TAB PO SCH (09:05)
[2020-11-29] MEDS: METOPROLOL SUCCINATE (ER) 25 MG TAB.ER.24H PO SCH ×2 (09:05→21:17)
[2020-11-29] MEDS: RIVAROXABAN 20 MG TAB PO SCH (09:05)
[2020-11-29] MEDS: DILTIAZEM ORAL 30 MG TAB PO SCH ×3 (09:05→21:17)
[2020-11-29 11:52] LABS: Glucose,Whole Blood 115 mg/dL (75-99)
--- NOTE | 2020-11-29 12:32 | P.PN ---
Subjective Progress Note Date: 11/29/20 This is a 75-year-old female patient with past medical history of valvular heart disease status post prosthetic aortic valve replacement, hypertension, diabetes, hyperlipidemia. Patient was recently noted to be in atrial flutter and was initiated on anticoagulation at that time. She was recently hospitalized due to atrial flutter with rapid ventricular response and underwent a HARJINDER in anticipation of possible cardioversion. This HARJINDER revealed left atrial appendage thrombus and the cardioversion was aborted. She was discharged home on a beta joi and anticoagulation as well as Cardizem. Presented this admission with a chief complaint of low blood pressure. Pressure was running in the 80s over 60s at home after increasing the Cardizem to 60 mg 3 times a day. She was feeling dizzy, weak and lightheaded. Upon presentation to the emergency department heart rate was noted to be elevated and she was placed on a Cardizem drip but this is discontinued due to hypotension. She is currently on Cardizem 30 mg by mouth 3 times a day and metoprolol succinate 75 mg by mouth twice a day. Overall this morning she is feeling fairly well. She's been up getting cleaned up in the bathroom. Heart rate remains elevated in the 120s to 130s. Blood pressure is stable in the 110s. Objective - Vital Signs Vital signs: Vital Signs Temp 98.7 F 11/29/20 08:40 Pulse 129 H 11/29/20 08:40 Resp 16 11/29/20 08:40 BP 111/75 11/29/20 08:40 Pulse Ox 98 11/29/20 08:40 Intake & Output 11/28/20 11/29/20 11/29/20 18:59 06:59 18:59 Intake Total 605 240 Output Total 350 4 Balance 255 -4 240 Weight 61.7 kg Intake: Oral 605 240 Output: Urine 350 4 Other: Voiding Method Toilet Toilet Toilet - Exam PHYSICAL EXAMINATION: HEENT: Head is atraumatic, normocephalic. Pupils equal, round. Neck is supple. There is no elevated jugular venous pressure. HEART EXAMINATION: Heart sounds irregularly irregular, S1 and S2 systolic murmur. CHEST EXAMINATION: Lungs are clear to auscultation and precussion. No chest wall tenderness is noted on palpation or with deep breathing. ABDOMEN: Soft, nontender. Bowel sounds are heard. No organomegaly noted. EXTREMITIES: 2+ peripheral pulses with no evidence of peripheral edema and no calf tenderness noted. NEUROLOGIC patient is awake, alert and oriented x3. . - Labs CBC & Chem 7: 11/28/20 00:46 11/28/20 07:34 Labs: Abnormal Lab Results - Last 24 Hours (Table) 11/28/20 11/28/20 11/29/20 Range/Units 16:50 20:45 06:08 POC Glucose (mg/dL) 122 H 182 H 157 H (75-99) mg/dL 11/29/20 Range/Units 11:51 POC Glucose (mg/dL) 115 H (75-99) mg/dL Microbiology - Last 24 Hours (Table) 11/28/20 Unknown Urine Culture - Preliminary Urine,Voided Gram Neg Bacilli Assessment and Plan Assessment: #1 typical atrial flutter with rapid ventricular response, anticoagulated on Xarelto #2 left atrial appendage thrombus noted on HARJINDER to 11/24/2020 #3 valvular heart disease, status post bioprosthetic aortic valve replacement #4 hypotension secondary to medications including beta blockers and calcium channel blockers #5 hypomagnesemia #6 hypertension #7 hyperlipidemia #8 diabetes mellitus type 2 Plan: From cardiology's perspective due to hypotension current dose of Cardizem and metoprolol have been maximized. We will start the patient on digoxin. Continue anticoagulation. We'll continue to follow the patient and provide further recommendations accordingly. The above dictated assessment and findings were discussed with signing physician. The impression and plan of care have been directed as dictated. Agata Nielson, Nurse Practitioner, acting as scribe for signing physician.
[2020-11-29] MEDS: DIGOXIN 250 MCG TAB PO SCH (12:55)
[2020-11-29 16:37] LABS: Glucose,Whole Blood 199 mg/dL (75-99)
[2020-11-29 20:39] LABS: Glucose,Whole Blood 141 mg/dL (75-99)
[2020-11-29] MEDS: ATORVASTATIN 40 MG TAB PO SCH (21:17)
[2020-11-30 05:55] LABS: Glucose,Whole Blood 186 mg/dL (75-99)
[2020-11-30] MEDS: INSULIN ASPART (NovoLOG) 100 UNIT/ML VIAL SQ SCH ×4 (06:54→22:23)
[2020-11-30 08:41] LABS: African American GFR (CKD) >90 (>60 ml/min/1.73 sqM); Anion Gap 9 mmol/L; Blood Urea Nitrogen 18 mg/dL (7-17); Calcium 9.1 mg/dL (8.4-10.2); Carbon Dioxide 28 mmol/L (22-30); Chloride 101 mmol/L (98-107); Glucose 172 mg/dL (74-99); Non-African American GFR(CKD) 89 (>60 ml/min/1.73 sqM); Potassium 4.5 mmol/L (3.5-5.1); Sodium 138 mmol/L (137-145)
[2020-11-30 09:00] LABS: Basophils # (A) 0.1 k/uL (0-0.2); Basophils % (A) 1 %; Eosinophils # (A) 0.1 k/uL (0-0.7); Eosinophils % (A) 1 %; HCT 33.2 % (34.0-46.0); HGB 11.2 gm/dL (11.4-16.0); Hypochromasia Slight; Lymphocytes # (A) 0.9 k/uL (1.0-4.8); Lymphocytes % (A) 15 %; MCH 32.2 pg (25.0-35.0); MCHC 33.7 g/dL (31.0-37.0); MCV 95.5 fL (80.0-100.0); Mean Platelet Volume 7.2; Monocytes # (A) 0.6 k/uL (0-1.0); Monocytes % (A) 9 %; Neutrophils # (A) 4.7 k/uL (1.3-7.7); Neutrophils % (A) 73 %; Platelet Count 189 k/uL (150-450); RBC 3.48 m/uL (3.80-5.40); RDW 14.1 % (11.5-15.5); WBC 6.4 k/uL (3.8-10.6)
[2020-11-30] MEDS: FUROSEMIDE 20 MG TAB PO SCH (09:09)
[2020-11-30] MEDS: DILTIAZEM ORAL 30 MG TAB PO SCH ×3 (09:09→22:00)
[2020-11-30] MEDS: METOPROLOL SUCCINATE (ER) 25 MG TAB.ER.24H PO SCH ×2 (09:09→22:00)
[2020-11-30] MEDS: ALPRAZolam 0.25 MG TAB PO PRN ×3 (09:09→22:22)
[2020-11-30] MEDS: RIVAROXABAN 20 MG TAB PO SCH (09:09)
[2020-11-30] MEDS: DIGOXIN 250 MCG TAB PO SCH (09:12)
[2020-11-30 11:48] LABS: Glucose,Whole Blood 182 mg/dL (75-99)
--- NOTE | 2020-11-30 14:01 | P.PN ---
Subjective Progress Note Date: 11/30/20 This is a 75-year-old female patient with past medical history of valvular heart disease status post prosthetic aortic valve replacement, hypertension, diabetes, hyperlipidemia. Patient was recently noted to be in atrial flutter and was initiated on anticoagulation at that time. She was recently hospitalized due to atrial flutter with rapid ventricular response and underwent a HARJINDER in anticipation of possible cardioversion. This HARJINDER revealed left atrial appendage thrombus and the cardioversion was aborted. She was discharged home on a beta joi and anticoagulation as well as Cardizem. Presented this admission with a chief complaint of low blood pressure. Pressure was running in the 80s over 60s at home after increasing the Cardizem to 60 mg 3 times a day. She was feeling dizzy, weak and lightheaded. Upon presentation to the emergency department heart rate was noted to be elevated and she was placed on a Cardizem drip but this is discontinued due to hypotension. She is currently on Cardizem 30 mg by mouth 3 times a day and metoprolol succinate 75 mg by mouth twice a day. Overall this morning she is feeling fairly well. She's been up getting cleaned up in the bathroom. Heart rate remains elevated in the 120s to 130s. Blood pressure is stable in the 110s. 11/30/20 She was seen and examined sitting up in a chair. Overall she's feeling fairly well today. Heart rate was initially 130s this morning but has since decreased to around 90s to low 100s after taking her morning medications. Vital signs have been stable. The time of my examination patient's heart rate is around 108. She is currently on metoprolol succinate 75 mg by mouth twice a day, digoxin 250 g by mouth daily and Cardizem 30 mg by mouth 3 times a day. Objective - Vital Signs Vital signs: Vital Signs Temp 98.3 F 11/30/20 11:30 Pulse 128 H 11/30/20 11:30 Resp 18 11/30/20 11:30 BP 131/96 11/30/20 11:30 Pulse Ox 100 11/30/20 11:30 Intake & Output 11/29/20 11/30/20 11/30/20 18:59 06:59 18:59 Intake Total 1020 480 240 Balance 1020 480 240 Weight 62 kg Intake: Oral 1020 480 240 Other: Voiding Method Toilet Toilet # Voids 2 1 2 - Exam PHYSICAL EXAMINATION: HEENT: Head is atraumatic, normocephalic. Pupils equal, round. Neck is supple. There is no elevated jugular venous pressure. HEART EXAMINATION: Heart sounds irregularly irregular, S1 and S2 systolic murmur. CHEST EXAMINATION: Lungs are clear to auscultation and precussion. No chest wall tenderness is noted on palpation or with deep breathing. ABDOMEN: Soft, nontender. Bowel sounds are heard. No organomegaly noted. EXTREMITIES: 2+ peripheral pulses with no evidence of peripheral edema and no calf tenderness noted. NEUROLOGIC patient is awake, alert and oriented x3. . - Labs CBC & Chem 7: 11/30/20 07:43 11/30/20 07:43 Labs: Abnormal Lab Results - Last 24 Hours (Table) 11/29/20 11/29/20 11/30/20 Range/Units 16:36 20:27 05:54 RBC (3.80-5.40) m/uL Hgb (11.4-16.0) gm/dL Hct (34.0-46.0) % Lymphocytes # (1.0-4.8) k/uL BUN (7-17) mg/dL Glucose (74-99) mg/dL POC Glucose (mg/dL) 199 H 141 H 186 H (75-99) mg/dL 11/30/20 11/30/20 11/30/20 Range/Units 07:43 07:43 11:47 RBC 3.48 L (3.80-5.40) m/uL Hgb 11.2 L (11.4-16.0) gm/dL Hct 33.2 L (34.0-46.0) % Lymphocytes # 0.9 L (1.0-4.8) k/uL BUN 18 H (7-17) mg/dL Glucose 172 H (74-99) mg/dL POC Glucose (mg/dL) 182 H (75-99) mg/dL Microbiology - Last 24 Hours (Table) 11/28/20 Unknown Urine Culture - Final Urine,Voided Escherichia coli Assessment and Plan Assessment: #1 typical atrial flutter with rapid ventricular response, anticoagulated on Xar elto #2 left atrial appendage thrombus noted on HARJINDER to 11/24/2020 #3 valvular heart disease, status post bioprosthetic aortic valve replacement #4 hypotension secondary to medications including beta blockers and calcium channel blockers #5 hypomagnesemia #6 hypertension #7 hyperlipidemia #8 diabetes mellitus type 2 Plan: From cardiology's perspective on occasions were reviewed and we will continue the same. Our standpoint the patient may be discharged home today. She will follow-up in the office with Dr. Bond in one to 2 weeks. The above dictated assessment and findings were discussed with signing physician. The impression and plan of care have been directed as dictated. Agata Nielson, Nurse Practitioner, acting as scribe for signing physician.
[2020-11-30 16:58] LABS: Glucose,Whole Blood 121 mg/dL (75-99)
[2020-11-30 20:35] LABS: Glucose,Whole Blood 176 mg/dL (75-99)
[2020-11-30] MEDS: ATORVASTATIN 40 MG TAB PO SCH ×2 (22:01→22:23)
[2020-11-30] MEDS: ACETAMINOPHEN TAB 325 MG TAB PO PRN (22:21)
--- NOTE | 2020-12-01 00:40 | P.PN ---
Subjective Progress Note Date: 11/29/20 Principal diagnosis: Atrial fibrillation with rapid regular rate Patient is a 75-year-old female with a known history of recently diagnosed atrial fibrillation on anticoagulation with Eliquis, coronary artery disease with history of aortic valve replacement, hypertension, hyperlipidemia, diabetes type 2 [id number] who was recently admitted to the hospital due to atrial fibrillation with rapid ventricular rate. Patient had HARJINDER done on 11/24/2020 and was found to have left atrial appendage thrombus and cardioversion could not be done at that time. Patient was discharged home with beta-joi and anticoagulation with Eliquis and follow-up as an outpatient in the cardiology clinic. Patient presents to ER due to hypotension and elevated heart rate. Patient states that she felt dizzy and about to fall at home and check her blood pressure was found to be 88/64 and her heart rate was in the 130s. Patient came to ER for evaluation. Otherwise denied any chest pain or shortness of breath. Currently denied any dizziness or lightheadedness. Patient was started on Cardizem drip and also was given fluid boluses in the ER with improvement in blood pressure currently. Patient states that she did have episodes of diarrhea. No complaints of abdominal pain. No nausea or vomiting. No fever no chills. No cough or sputum production. Denied any lower abdominal pain. No dysuria or hematuria. EKG showed atrial flutter. Laboratory data showed WBC 8.3, hemoglobin 11.2 and platelets 222 INR 1.4 Sodium 130 potassium 4.7 chloride 94 BUN 26 and creatinine 0.81 and magnesium 1.3 TSH 4.35 Samaniego virus PCR is not detected Troponin x3 -. 11/29/20 Patient is currently sitting in the chair. Heart rate is still elevated. Patient was started on digoxin and continued on Cardizem and metoprolol as blood pressure tolerates. Cardiology is on board. Otherwise patient denies any complaints of chest pain or shortness of breath. No fever no chills. Patient is being continued antibiotics for urinary tract infection. Follow final culture report. Current medications reviewed. Objective - Vital Signs Vital signs: Vital Signs Temp 98.7 F 11/29/20 08:40 Pulse 129 H 11/29/20 08:40 Resp 16 11/29/20 08:40 BP 111/75 11/29/20 08:40 Pulse Ox 98 11/29/20 08:40 Intake & Output 11/28/20 11/29/20 11/29/20 18:59 06:59 18:59 Intake Total 605 240 Output Total 350 4 Balance 255 -4 240 Weight 61.7 kg Intake: Oral 605 240 Output: Urine 350 4 Other: Voiding Method Toilet Toilet Toilet - Exam PHYSICAL EXAMINATION: Patient is lying in the bed comfortably, no acute distress, awake alert and oriented.. HEENT: Normocephalic. Neck is supple. Pupils reactive. Nostrils clear. Oral c avity is moist. Ears reveal no drainage. Neck reveals no JVD, carotid bruits, or thyromegaly. CHEST EXAMINATION: Trachea is central. Symmetrical expansion. Lung amos clear to auscultation and percussion. CARDIAC: Normal S1, S2 with no gallops. No murmurs Irregularly irregular rhythm ABDOMEN: Soft. Bowel sounds normal. No organomegaly. No abdominal bruits. Extremities: reveal no edema. No clubbing or cyanosis Neurologically awake, alert, oriented x3 with well-coordinated movements. No focal deficits noted Skin: No rash or skin lesions. Psychiatric: Coperative. Nonsuicidal Musculoskeletal: No joint swelling or deformity. Normal range of motion. - Labs CBC & Chem 7: 11/30/20 07:43 11/30/20 07:43 Labs: Abnormal Lab Results - Last 24 Hours (Table) 11/28/20 11/28/20 11/28/20 Range/Units 07:34 11:55 16:50 Sodium 134 L (137-145) mmol/L BUN 18 H (7-17) mg/dL Glucose 168 H (74-99) mg/dL POC Glucose (mg/dL) 116 H 122 H (75-99) mg/dL 11/28/20 11/29/20 Range/Units 20:45 06:08 Sodium (137-145) mmol/L BUN (7-17) mg/dL Glucose (74-99) mg/dL POC Glucose (mg/dL) 182 H 157 H (75-99) mg/dL Microbiology - Last 24 Hours (Table) 11/28/20 Unknown Urine Culture - Preliminary Urine,Voided Assessment and Plan Assessment: Atrial flutter. Off Cardizem drip now. Continue with anticoagulation with Xarelto Left atrial appendage thrombus as per HARJINDER done on 11/24/2020 Dizziness likely due to hypotension improved now Acute urinary tract infection History of aortic valve replacement with bioprosthetic valve. Hypovolemic hyponatremia Hypomagnesemia Hypertension patient is hypotensive now GERD Osteoarthritis Diabetes type 2 [id number] History of bladder suspension surgery x2 Anxiety DVT prophylaxis patient is already on Xarelto Plan: Patient will be continued on telemetry monitoring. Off Cardizem drip and start back on metoprolol. Continue with anticoagulation with Xarelto. Patient was started on ceftriaxone for possible urinary tract infection and follow-up urine culture report. Encourage oral intake. Cardiology is on board and further recommendations based on the clinical course. Time with Patient: Greater than 30
--- NOTE | 2020-12-01 00:42 | P.PN ---
Subjective Progress Note Date: 11/30/20 Principal diagnosis: Atrial fibrillation with rapid regular rate Patient is a 75-year-old female with a known history of recently diagnosed atrial fibrillation on anticoagulation with Eliquis, coronary artery disease with history of aortic valve replacement, hypertension, hyperlipidemia, diabetes type 2 [id number] who was recently admitted to the hospital due to atrial fibrillation with rapid ventricular rate. Patient had HARJINDER done on 11/24/2020 and was found to have left atrial appendage thrombus and cardioversion could not be done at that time. Patient was discharged home with beta-joi and anticoagulation with Eliquis and follow-up as an outpatient in the cardiology clinic. Patient presents to ER due to hypotension and elevated heart rate. Patient states that she felt dizzy and about to fall at home and check her blood pressure was found to be 88/64 and her heart rate was in the 130s. Patient came to ER for evaluation. Otherwise denied any chest pain or shortness of breath. Currently denied any dizziness or lightheadedness. Patient was started on Cardizem drip and also was given fluid boluses in the ER with improvement in blood pressure currently. Patient states that she did have episodes of diarrhea. No complaints of abdominal pain. No nausea or vomiting. No fever no chills. No cough or sputum production. Denied any lower abdominal pain. No dysuria or hematuria. EKG showed atrial flutter. Laboratory data showed WBC 8.3, hemoglobin 11.2 and platelets 222 INR 1.4 Sodium 130 potassium 4.7 chloride 94 BUN 26 and creatinine 0.81 and magnesium 1.3 TSH 4.35 Samaniego virus PCR is not detected Troponin x3 -. 11/29/20 Patient is currently sitting in the chair. Heart rate is still elevated. Patient was started on digoxin and continued on Cardizem and metoprolol as blood pressure tolerates. Cardiology is on board. Otherwise patient denies any complaints of chest pain or shortness of breath. No fever no chills. Patient is being continued antibiotics for urinary tract infection. Follow final culture report. 11/30/2020 Patient is currently resting in the bed comfortably. Heart rate is in 130s this morning. Improved to 90 around after morning medications. Patient was also started on Xanax for anxiety. Patient does take Xanax at home. Urine culture showed E. coli. Continue with ceftriaxone Patient is still anxious and anticipate discharge in the next 24 hours Current medications reviewed. Objective - Vital Signs Vital signs: Vital Signs Temp 98.9 F 11/30/20 15:30 Pulse 128 H 11/30/20 15:30 Resp 18 11/30/20 15:30 BP 143/99 11/30/20 15:30 Pulse Ox 99 11/30/20 15:30 Intake & Output 11/29/20 11/30/20 11/30/20 18:59 06:59 18:59 Intake Total 1020 480 240 Balance 1020 480 240 Weight 62 kg Intake: Oral 1020 480 240 Other: Voiding Method Toilet Toilet Toilet # Voids 2 1 2 - Exam PHYSICAL EXAMINATION: Patient is lying in the bed comfortably, no acute distress, awake alert and oriented.. HEENT: Normocephalic. Neck is supple. Pupils reactive. Nostrils clear. Oral cavity is moist. Ears reveal no drainage. Neck reveals no JVD, carotid bruits, or thyromegaly. CHEST EXAMINATION: Trachea is central. Symmetrical expansion. Lung amos clear to auscultation and percussion. CARDIAC: Normal S1, S2 with no gallops. No murmurs Irregularly irregular rhythm ABDOMEN: Soft. Bowel sounds normal. No organomegaly. No abdominal bruits. Extremities: reveal no edema. No clubbing or cyanosis Neurologically awake, alert, oriented x3 with well-coordinated movements. No focal deficits noted Skin: No rash or skin lesions. Psychiatric: Coperative. Nonsuicidal Musculoskeletal: No joint swelling or deformity. Normal range of motion. - Labs CBC & Chem 7: 11/30/20 07:43 11/30/20 07:43 Labs: Abnormal Lab Results - Last 24 Hours (Table) 11/29/20 11/30/20 11/30/20 Range/Units 20:27 05:54 07:43 RBC (3.80-5.40) m/uL Hgb (11.4-16.0) gm/dL Hct (34.0-46.0) % Lymphocytes # (1.0-4.8) k/uL BUN 18 H (7-17) mg/dL Glucose 172 H (74-99) mg/dL POC Glucose (mg/dL) 141 H 186 H (75-99) mg/dL 11/30/20 11/30/20 11/30/20 Range/Units 07:43 11:47 16:57 RBC 3.48 L (3.80-5.40) m/uL Hgb 11.2 L (11.4-16.0) gm/dL Hct 33.2 L (34.0-46.0) % Lymphocytes # 0.9 L (1.0-4.8) k/uL BUN (7-17) mg/dL Glucose (74-99) mg/dL POC Glucose (mg/dL) 182 H 121 H (75-99) mg/dL Microbiology - Last 24 Hours (Table) 11/28/20 Unknown Urine Culture - Final Urine,Voided Escherichia coli Assessment and Plan Assessment: Atrial flutter. Off Cardizem drip now. Continue with anticoagulation with Xarelto Left atrial appendage thrombus as per HARJINDER done on 11/24/2020 Dizziness likely due to hypotension improved now Acute urinary tract infection with E coli History of aortic valve replacement with bioprosthetic valve. Hypovolemic hyponatremia Hypomagnesemia Hypertension patient is hypotensive now GERD Osteoarthritis Diabetes type 2 [id number] History of bladder suspension surgery x2 Anxiety DVT prophylaxis patient is already on Xarelto Plan: Patient will be continued on telemetry monitoring. Off Cardizem drip and start back on metoprolol and cerdizem added dizoxin. Continue with anticoagulation with Xarelto. Patient was started on ceftriaxone for possible urinary tract infection Encourage oral intake. Cardiology is on board and further recommendations based on the clinical course. Time with Patient: Greater than 30
[2020-12-01 06:33] LABS: Glucose,Whole Blood 155 mg/dL (75-99)
[2020-12-01] MEDS: INSULIN ASPART (NovoLOG) 100 UNIT/ML VIAL SQ SCH ×4 (06:57→22:51)
[2020-12-01] MEDS: RIVAROXABAN 20 MG TAB PO SCH (10:24)
[2020-12-01] MEDS: DIGOXIN 250 MCG TAB PO SCH (10:24)
[2020-12-01] MEDS: METOPROLOL SUCCINATE (ER) 25 MG TAB.ER.24H PO SCH (10:24)
[2020-12-01] MEDS: FUROSEMIDE 20 MG TAB PO SCH (10:24)
[2020-12-01] MEDS: DILTIAZEM ORAL 30 MG TAB PO SCH ×3 (10:24→22:51)
[2020-12-01] MEDS ORDERED: METOPROLOL SUCCINATE (ER) 25 MG TAB.ER.24H PO STA (11:36)
[2020-12-01 11:51] LABS: Glucose,Whole Blood 140 mg/dL (75-99)
--- NOTE | 2020-12-01 12:39 | P.PN ---
Subjective Progress Note Date: 12/01/20 CHIEF COMPLAINT: Tachycardia HISTORY OF PRESENT ILLNESS: 11/28/2020 This is a 75-year-old female with a past medical history significant for atrial flutter, valvular heart disease status post prosthetic aortic valve replacement, hypertension, diabetes mellitus, and hyperlipidemia. Patient follows in the office with Dr. Bond. We have been asked to see the patient in consultation for tachycardia. Patient was recently hospitalized secondary to atrial flutter. She underwent a HARJINDER on 11/24/2020 revealing left atrial appendage thrombus. Cardioversion was canceled. Patient was discharged home on a beta joi and anticoagulation. Patient presented back to the ER with a chief complaint of low blood pressure. She states she took her blood pressure at home and it was 88/64. She states her heart rate was also high at home. She reports feeling dizzy yesterday and states that she lay down for a little bit and felt better but she decided to come to the emergency room for further evaluation. Patient currently denies chest pain or pressure. She denies shortness of breath. She denies dizziness or lightheadedness. Patient was placed on a Cardizem drip in the emergency room. Blood pressure has been running low overnight and Cardizem drip was stopped this morning. HARJINDER performed on 11/24/2020 revealed ejection fraction of 45%, left atrial appendage thrombus, bioprosthetic aortic valve with mild aortic regurgitation, moderate mitral and tricuspid regurgitation. 12/01/2020 Patient examined this morning at the bedside. Patient remains in atrial fibrillation with uncontrolled ventricular rate. She is currently receiving digoxin 250mcg daily, Cardizem 30 mg 3 times a day, and Toprol-XL 75 mg twice a day. Patient was taking Cardizem 60 mg 3 times a day at home but she was unable to tolerate this secondary to hypotension and dizziness. Patient denies chest pain or pressure. She denies shortness of breath. She currently denies palpitations. PHYSICAL EXAM: VITAL SIGNS: Reviewed. GENERAL: Well-developed in no acute distress. HEENT: Head is normocephalic. Pupils are equal, round. Sclerae anicteric. Mucous membranes of the mouth are moist. Neck supple. No JVD or thyromegaly LUNGS: Respirations even and unlabored. Lungs essentially clear to auscultation bilaterally. HEART: Irregular rate and rhythm. S1 and S2 heard. Systolic murmur noted. ABDOMEN: Soft. Nondistended. Nontender. EXTREMITIES: Normal range of motion. No clubbing or cyanosis. Peripheral pulses intact. No lower extremity edema NEUROLOGIC: Awake and alert. Oriented x 3. ASSESSMENT: Typical atrial flutter with RVR, on anticoagulation with Xarelto Hypotension, resolved Left atrial appendage thrombus, noted on HARJINDER 11/24/2020 Valvular heart disease, status post bioprosthetic aortic valve replacement Hypomagnesemia Hypertension Hyperlipidemia Diabetes mellitus, type II PLAN: Continue current cardiac medications Continue Xarelto for anticoagulation Increase metoprolol to 100 mg twice a day Continue telemetry monitoring Further recommendations pending patient course Nurse practitioner note has been reviewed by physician. Signing provider agrees with the documented findings, assessment, and plan of care. Objective - Vital Signs Vital signs: Vital Signs Temp 98.3 F 12/01/20 12:06 Pulse 83 12/01/20 12:06 Resp 18 12/01/20 12:06 BP 135/92 12/01/20 12:06 Pulse Ox 98 12/01/20 12:06 Intake & Output 11/30/20 12/01/20 12/01/20 18:59 06:59 18:59 Intake Total 240 240 540 Balance 240 240 540 Weight 61.1 kg Intake: Oral 240 240 540 Other: Voiding Method Toilet Toilet # Voids 2 1 - Labs CBC & Chem 7: 11/30/20 07:43 11/30/20 07:43 Labs: Abnormal Lab Results - Last 24 Hours (Table) 11/30/20 11/30/20 12/01/20 Range/Units 16:57 20:34 06:31 POC Glucose (mg/dL) 121 H 176 H 155 H (75-99) mg/dL 12/01/20 Range/Units 11:49 POC Glucose (mg/dL) 140 H (75-99) mg/dL Microbiology - Last 24 Hours (Table) 11/28/20 Unknown Urine Culture - Final Urine,Voided Escherichia coli
--- NOTE | 2020-12-01 13:01 | P.PN ---
Subjective Progress Note Date: 12/01/20 Atrial fibrillation with rapid regular rate Patient is a 75-year-old female with a known history of recently diagnosed atrial fibrillation on anticoagulation with Eliquis, coronary artery disease with history of aortic valve replacement, hypertension, hyperlipidemia, diabetes type 2 [id number] who was recently admitted to the hospital due to atrial fibrillation with rapid ventricular rate. Patient had HARJINDER done on 11/24/2020 and was found to have left atrial appendage thrombus and cardioversion could not be done at that time. Patient was discharged home with beta-joi and anticoagulation with Eliquis and follow-up as an outpatient in the cardiology clinic. Patient presents to ER due to hypotension and elevated heart rate. Patient states that she felt dizzy and about to fall at home and check her blood pressure was found to be 88/64 and her heart rate was in the 130s. Patient came to ER for evaluation. Otherwise denied any chest pain or shortness of breath. Currently denied any dizziness or lightheadedness. Patient was started on Cardizem drip and also was given fluid boluses in the ER with improvement in blood pressure currently. Patient states that she did have episodes of diarrhea. No complaints of abdominal pain. No nausea or vomiting. No fever no chills. No cough or sputum production. Denied any lower abdominal pain. No dysuria or hematuria. EKG showed atrial flutter. Laboratory data showed WBC 8.3, hemoglobin 11.2 and platelets 222 INR 1.4 Sodium 130 potassium 4.7 chloride 94 BUN 26 and creatinine 0.81 and magnesium 1.3 TSH 4.35 Samaniego virus PCR is not detected Troponin x3 -. 11/29/20 Patient is currently sitting in the chair. Heart rate is still elevated. Patient was started on digoxin and continued on Cardizem and metoprolol as blood pressure tolerates. Cardiology is on board. Otherwise patient denies any complaints of chest pain or shortness of breath. No fever no chills. Patient is being continued antibiotics for urinary tract infection. Follow final culture report. 11/30/2020 Patient is currently resting in the bed comfortably. Heart rate is in 130s this morning. Improved to 90 around after morning medications. Patient was also started on Xanax for anxiety. Patient does take Xanax at home. Urine culture showed E. coli. Continue with ceftriaxone 12/01/2020 Patient is seen in follow-up and continues to have uncontrolled rate and rhythm and atrial fibrillation. Cardiology following closely. Patient is maintained on digoxin along with Cardizem and increasing Toprol 100 mg twice daily and will continue to monitor. Patient denies any chest pain or palpitations at this time. Patient is also maintained on IV ceftriaxone as urine culture finalized showing E. coli and will continue. Review of systems: Constitutional: No reports of fatigue, fever, or chills Cardiovascular: No reports of chest pain or palpitations Respiratory: No reports of shortness of breath or cough GI: No reports of nausea, vomiting, or diarrhea : No reports of dysuria or retention Neurovascular: No reports of weakness or numbness All medications have been reviewed Objective - Vital Signs Vital signs: Vital Signs Temp 98.3 F 12/01/20 12:06 Pulse 83 12/01/20 12:06 Resp 18 12/01/20 12:06 BP 135/92 12/01/20 12:06 Pulse Ox 98 12/01/20 12:06 Intake & Output 11/30/20 12/01/20 12/01/20 18:59 06:59 18:59 Intake Total 240 240 540 Balance 240 240 540 Weight 61.1 kg Intake: Oral 240 240 540 Other: Voiding Method Toilet Toilet # Voids 2 1 - Exam Patient is sitting up in the bed comfortably, no acute distress, awake alert and oriented.. HEENT: Normocephalic. Neck is supple. Pupils reactive. Nostrils clear. Oral cavity is moist. Ears reveal no drainage. Neck reveals no JVD, carotid bruits, or thyromegaly. CHEST EXAMINATION: Trachea is central. Symmetrical expansion. Lung amos clear to auscultation and percussion. CARDIAC: Normal S1, S2 with no gallops. No murmurs Irregularly irregular rhythm ABDOMEN: Soft. Bowel sounds normal. No organomegaly. No abdominal bruits. Extremities: reveal no edema. No clubbing or cyanosis Neurologically awake, alert, oriented x3 with well-coordinated movements. No focal deficits noted Skin: No rash or skin lesions. Psychiatric: Cooperative. Non-suicidal Musculoskeletal: No joint swelling or deformity. Normal range of motion. - Labs CBC & Chem 7: 11/30/20 07:43 11/30/20 07:43 Labs: Abnormal Lab Results - Last 24 Hours (Table) 11/30/20 11/30/20 12/01/20 Range/Units 16:57 20:34 06:31 POC Glucose (mg/dL) 121 H 176 H 155 H (75-99) mg/dL 12/01/20 Range/Units 11:49 POC Glucose (mg/dL) 140 H (75-99) mg/dL Microbiology - Last 24 Hours (Table) 11/28/20 Unknown Urine Culture - Final Urine,Voided Escherichia coli Assessment and Plan Assessment: Atrial flutter. Continue with anticoagulation with Xarelto. Maintained on digoxin and Cardizem and increasing Toprol-XL. Cardiology following Left atrial appendage thrombus as per HARJINDER done on 11/24/2020 Dizziness likely due to hypotension, improved Acute urinary tract infection with E coli, continue ceftriaxone History of aortic valve replacement with bioprosthetic valve. Hypovolemic hyponatremia, improved Hypomagnesemia, improved Hypertension, continue with home medications GERD Osteoarthritis Diabetes type 2 [id number] History of bladder suspension surgery x2 Anxiety DVT prophylaxis patient is already on Xarelto Plan: Patient will be continued on telemetry monitoring. Cardiology following. Patient is continued on Cardizem and digoxin and currently increasing beta joi. Continue with anticoagulation with Xarelto. Patient was started on ce ftriaxone for possible urinary tract infection with urine cultures finalizing showing E. coli. Encourage oral intake. Increase activity as tolerated. We'll continue to monitor with medication adjustments and anticipate discharge in 24 hours.
[2020-12-01 16:40] LABS: Glucose,Whole Blood 159 mg/dL (75-99)
[2020-12-01 20:26] LABS: Glucose,Whole Blood 150 mg/dL (75-99)
[2020-12-01] MEDS: METOPROLOL SUCCINATE (ER) 100 MG TAB.ER.24H PO SCH (22:51)
[2020-12-01] MEDS: ATORVASTATIN 40 MG TAB PO SCH (22:51)
[2020-12-01] MEDS: ALPRAZolam 0.25 MG TAB PO PRN (22:51)
[2020-12-02] MEDS: INSULIN ASPART (NovoLOG) 100 UNIT/ML VIAL SQ SCH ×2 (06:59→12:22)
[2020-12-02 07:00] LABS: Glucose,Whole Blood 179 mg/dL (75-99)
[2020-12-02] MEDS: RIVAROXABAN 20 MG TAB PO SCH (09:33)
[2020-12-02] MEDS: DIGOXIN 250 MCG TAB PO SCH (09:33)
[2020-12-02] MEDS: METOPROLOL SUCCINATE (ER) 100 MG TAB.ER.24H PO SCH (09:33)
[2020-12-02] MEDS: FUROSEMIDE 20 MG TAB PO SCH (09:33)
[2020-12-02] MEDS: DILTIAZEM ORAL 30 MG TAB PO SCH ×2 (09:34→16:02)
[2020-12-02 11:26] VITALS: BP 116/79; PULSE 74; RESP 16; TEMP 98.2
[2020-12-02 11:41] LABS: Glucose,Whole Blood 144 mg/dL (75-99)
--- NOTE | 2020-12-02 12:11 | P.PN ---
Subjective Progress Note Date: 12/02/20 CHIEF COMPLAINT: Tachycardia HISTORY OF PRESENT ILLNESS: 11/28/2020 This is a 75-year-old female with a past medical history significant for atrial flutter, valvular heart disease status post prosthetic aortic valve replacement, hypertension, diabetes mellitus, and hyperlipidemia. Patient follows in the office with Dr. Bond. We have been asked to see the patient in consultation for tachycardia. Patient was recently hospitalized secondary to atrial flutter. She underwent a HARJINDER on 11/24/2020 revealing left atrial appendage thrombus. Cardioversion was canceled. Patient was discharged home on a beta joi and anticoagulation. Patient presented back to the ER with a chief complaint of low blood pressure. She states she took her blood pressure at home and it was 88/64. She states her heart rate was also high at home. She reports feeling dizzy yesterday and states that she lay down for a little bit and felt better but she decided to come to the emergency room for further evaluation. Patient currently denies chest pain or pressure. She denies shortness of breath. She denies dizziness or lightheadedness. Patient was placed on a Cardizem drip in the emergency room. Blood pressure has been running low overnight and Cardizem drip was stopped this morning. HARJINDER performed on 11/24/2020 revealed ejection fraction of 45%, left atrial appendage thrombus, bioprosthetic aortic valve with mild aortic regurgitation, moderate mitral and tricuspid regurgitation. 12/01/2020 Patient examined this morning at the bedside. Patient remains in atrial fibrillation with uncontrolled ventricular rate. She is currently receiving digoxin 250mcg daily, Cardizem 30 mg 3 times a day, and Toprol-XL 75 mg twice a day. Patient was taking Cardizem 60 mg 3 times a day at home but she was unable to tolerate this secondary to hypotension and dizziness. Patient denies chest pain or pressure. She denies shortness of breath. She currently denies palpitations. 12/02/2020 Patient examined this morning at the bedside. She denies chest pain or pressure. Denies shortness of breath. Denies palpitations. She remains in atrial fibrillation with a fairly controlled ventricular rate. PHYSICAL EXAM: VITAL SIGNS: Reviewed. GENERAL: Well-developed in no acute distress. HEENT: Head is normocephalic. Pupils are equal, round. Sclerae anicteric. Mucous membranes of the mouth are moist. Neck supple. No JVD or thyromegaly LUNGS: Respirations even and unlabored. Lungs essentially clear to auscultation bilaterally. HEART: Irregular rate and rhythm. S1 and S2 heard. Systolic murmur noted. ABDOMEN: Soft. Nondistended. Nontender. EXTREMITIES: Normal range of motion. No clubbing or cyanosis. Peripheral pulses intact. No lower extremity edema NEUROLOGIC: Awake and alert. Oriented x 3. ASSESSMENT: Typical atrial flutter with RVR, on anticoagulation with Xarelto Hypotension, resolved Left atrial appendage thrombus, noted on HARJINDER 11/24/2020 Valvular heart disease, status post bioprosthetic aortic valve replacement Hypomagnesemia Hypertension Hyperlipidemia Diabetes mellitus, type II PLAN: Continue current cardiac medications Continue Xarelto for anticoagulation Patient may be discharged home today from a cardiac perspective. She is to follow up outpatient with Dr. Bond Nurse practitioner note has been reviewed by physician. Signing provider agrees with the documented findings, assessment, and plan of care. Objective - Vital Signs Vital signs: Vital Signs Temp 98.2 F 12/02/20 11:25 Pulse 74 12/02/20 11:25 Resp 16 12/02/20 11:25 BP 116/79 12/02/20 11:25 Pulse Ox 96 12/02/20 11:25 Intake & Output 12/01/20 12/02/20 12/02/20 18:59 06:59 18:59 Intake Total 1186 120 420 Output Total 1 754 1 Balance 1185 -634 419 Weight 61.6 kg Intake: Intake, IV Titration 50 Amount cefTRIAXone 1 gm In 50 Sodium Chloride 0.9% 50 ml @ 100 mls/hr IVPB Q24HR [facility] Rx#:[id number] Oral 1136 120 420 Output: Urine 751 Stool 1 3 1 Other: Voiding Method Toilet Toilet Toilet # Voids 2 2 3 # Bowel Movements 1 - Labs CBC & Chem 7: 11/30/20 07:43 11/30/20 07:43 Labs: Abnormal Lab Results - Last 24 Hours (Table) 12/01/20 12/01/20 12/02/20 Range/Units 16:38 20:25 06:31 POC Glucose (mg/dL) 159 H 150 H 179 H (75-99) mg/dL 12/02/20 Range/Units 11:39 POC Glucose (mg/dL) 144 H (75-99) mg/dL
--- NOTE | 2020-12-02 13:21 | P.DS ---
Providers Date of admission: 11/28/20 03:20 Expected date of discharge: 12/02/20 Attending physician: Jayson Cobos Consults: 11/28/20 03:19 Consult Physician Urgent Consulting Provider: Sandra Bond Consult Reason/Comments: tachy Do you want consulting provider notified?: Yes Primary care physician: Grant Townsend [facility] Course: Final diagnosis Atrial flutter/ fibrillation with rapid ventricular rate Left atrial appendage thrombus as per HARJINDER done on 11/24/2020 Dizziness likely due to hypotension, improved Acute urinary tract infection with E coli History of aortic valve replacement with bioprosthetic valve. Hypovolemic hyponatremia, improved Hypomagnesemia, improved Hypertension GERD Osteoarthritis Diabetes type 2 [id number] History of bladder suspension surgery x2 Anxiety DVT prophylaxis Discharge disposition Patient is being discharged in a stable condition with guarded prognosis to home. patient will follow-up with Dr. Townsend primary care provider in the outpatient setting. Patient is to continue with oral antibiotics in the form of Ceftin 500 mg twice daily for the next 4 days to complete the course. Patient is also instructed to follow-up in the outpatient setting with cardiology. Total time taken is greater than 35 minutes. Hospital course This is a 75-year-old female who was recently admitted with atrial fibrillation with rapid ventricular rate and is being closely monitored. Cardiology following the patient and patient was placed on Cardizem and home medications have been resumed. Patient was also started on digoxin by cardiology and will continue with other home medications. Metoprolol has been increased also 100 mg twice daily. She will continue Xarelto she was recently admitted and found to have a thrombus noted in the atrial appendage. Patient scheduled to follow-up with cardiology outpatient. Patient's urine culture finalized showing E. coli and was continued on IV ceftriaxone and will continue with oral Ceftin 500 mg twice daily for the next 4 days to complete the course. Patient instructed to follow-up with primary care provider along with cardiology as discussed. Currently no reports of chest pain, shortness of breath, or palpitations. Patient is afebrile. No reports of nausea or vomiting and patient is tolerating diet. Patient will be discharged home today. On exam vital signs are stable. Cardio S1, S2 are muffled. Respiratory system shows diminished breath sounds at the bases with no wheezing or rhonchi noted. Abdomen is soft and obese, and nontender. Nervous system shows no focal deficits. Please refer to medication reconciliation sheet for a list of medications. Patient Condition at Discharge: Fair Plan - Discharge Summary Discharge Rx Participant: No New Discharge Prescriptions: New Cefuroxime Axetil [Ceftin] 500 mg PO BID 4 Days #8 tab Digoxin [Lanoxin] 250 mcg PO DAILY #30 tab ALPRAZolam [Xanax] 0.25 mg PO TID PRN #10 tab PRN Reason: Agitation Or Acute Anxiety Metoprolol Succinate (ER) [Toprol XL] 100 mg PO BID 30 Days #60 tab.er.24h Continue metFORMIN HCL 1,000 mg PO BID Omeprazole [PriLOSEC] 20 mg PO DAILY Atorvastatin [Lipitor] 40 mg PO HS sitaGLIPtin [Januvia] 100 mg PO DAILY Calcium Carbonate [Calcium] 600 mg PO W/LUNCH Ferrous Sulfate [Iron (65 MG Elemental)] 65 mg PO W/LUNCH Cholecalciferol [Vitamin D3 (10 Mcg = 400 Iu)] 800 unit PO W/LUNCH Cyanocobalamin (Vitamin B-12) [Vitamin B-12] 1,000 mcg PO W/LUNCH Pioglitazone [Actos] 30 mg PO DAILY Ubidecarenone [Co Q-10] 300 mg PO W/LUNCH Rivaroxaban [Xarelto] 20 mg PO DAILY #30 tab Diltiazem Oral [Cardizem*] 30 mg PO TID #90 tab Furosemide [Lasix] 20 mg PO DAILY #90 tab Loperamide [Imodium] 2 mg PO QID PRN cap PRN Reason: Diarrhea Discontinued Metoprolol Succinate (ER) [Toprol XL] 75 mg PO BID #270 tab.er.24h Magnesium Oxide [Mag-Ox] 400 mg PO BID 30 Days #60 tab Discharge Medication List Atorvastatin [Lipitor] 40 mg PO HS 01/24/17 [History] Omeprazole [PriLOSEC] 20 mg PO DAILY 01/24/17 [History] metFORMIN HCL 1,000 mg PO BID 01/24/17 [History] sitaGLIPtin [Januvia] 100 mg PO DAILY 01/24/17 [History] Calcium Carbonate [Calcium] 600 mg PO W/LUNCH 11/04/17 [History] Cholecalciferol [Vitamin D3 (10 Mcg = 400 Iu)] 800 unit PO W/LUNCH 11/04/17 [History] Cyanocobalamin (Vitamin B-12) [Vitamin B-12] 1,000 mcg PO W/LUNCH 11/04/17 [History] Ferrous Sulfate [Iron (65 MG Elemental)] 65 mg PO W/LUNCH 11/04/17 [History] Pioglitazone [Actos] 30 mg PO DAILY 11/21/20 [History] Rivaroxaban [Xarelto] 20 mg PO DAILY #30 tab 11/21/20 [Rx] Ubidecarenone [Co Q-10] 300 mg PO W/LUNCH 11/21/20 [History] Diltiazem Oral [Cardizem*] 30 mg PO TID #90 tab 11/25/20 [Rx] Furosemide [Lasix] 20 mg PO DAILY #90 tab 11/25/20 [Rx] Loperamide [Imodium] 2 mg PO QID PRN cap 11/25/20 [Rx] ALPRAZolam [Xanax] 0.25 mg PO TID PRN #10 tab 11/30/20 [Rx] Cefuroxime Axetil [Ceftin] 500 mg PO BID 4 Days #8 tab 11/30/20 [Rx] Digoxin [Lanoxin] 250 mcg PO DAILY #30 tab 11/30/20 [Rx] Metoprolol Succinate (ER) [Toprol XL] 100 mg PO BID 30 Days #60 tab.er.24h 12/02/20 [Rx] Follow up Appointment(s)/Referral(s): Sandra Bond MD [STAFF PHYSICIAN] - 12/09/20 3:15 pm () Grant Townsend MD [Primary Care Provider] - 12/04/20 3:30 pm () Patient Instructions/Handouts: Atrial Flutter (DC), Urinary Tract Infection in Women (DC) Activity/Diet/Wound Care/Special Instructions: Activity Limited until follow-up continue to monitor blood sugar and keep a diary for primary care follow up Continue heart healthy diet Discharge Disposition: HOME SELF-CARE
== END 2020-12-02 16:08 | disposition home or self-care (01) | DRG 309 ==
LOC: EC 00:17 → 3SCARD 03:20
PROVIDERS: ADMIT Hospitalist; ATTEND Hospitalist
DX: I48.3 Typical atrial flutter (principal); E87.1 Hypo-osmolality and hyponatremia; N39.0 Urinary tract infection, site not specified; I51.3 Intracardiac thrombosis, not elsewhere classified; Z96.641 Presence of right artificial hip joint; K21.9 Gastro-esophageal reflux disease without esophagitis; I25.10 Atherosclerotic heart disease of native coronary artery without angina pectoris; I10 Essential (primary) hypertension; I08.1 Rheumatic disorders of both mitral and tricuspid valves; F41.9 Anxiety disorder, unspecified; M19.90 Unspecified osteoarthritis, unspecified site; Z20.822 Contact with and (suspected) exposure to COVID-19; E11.9 Type 2 diabetes mellitus without complications; E78.5 Hyperlipidemia, unspecified; E83.42 Hypomagnesemia; E86.1 Hypovolemia; E66.9 Obesity, unspecified; B96.20 Unspecified Escherichia coli [E. coli] as the cause of diseases classified elsewhere; Z95.3 Presence of xenogenic heart valve; Z90.710 Acquired absence of both cervix and uterus; Z87.440 Personal history of urinary (tract) infections; Z79.899 Other long term (current) drug therapy; Z79.84 Long term (current) use of oral hypoglycemic drugs; Z79.01 Long term (current) use of anticoagulants; Z88.0 Allergy status to penicillin; Z98.890 Other specified postprocedural states; Z98.51 Tubal ligation status; Z80.9 Family history of malignant neoplasm, unspecified; Z68.27 Body mass index [BMI] 27.0-27.9, adult
CPT/HCPCS: 36415; 80048; 80053; 80061; 81001; 82550; 83605; 83735; 83880; 84100; 84443; 84484; 85025; 85610; 85730; 87077; 87086; 87186; 87635; 93005; 96361; 96365; 96375; 96376; 99291

== ENCOUNTER → 2021-02-04 | Day surgery (SDC) | payer MEDICARE ==
[2021-01-30 10:42] VITALS: BMI 26.4
[~2021-02-04] MED LIST: LACTATED RINGERS 1,000 ML IV SCH; LIDOCAINE 1% (10MG/ML) FOR IV START INTRADERMA PRN; PROPOFOL 10 MG/ML 20 ML VIAL IV ONE
[2021-02-04 08:21] VITALS: TEMP 97.2
[2021-02-04 08:38] LABS: Glucose,Whole Blood 161 mg/dL (75-99)
--- NOTE | 2021-02-04 08:54 | P.PCN ---
Date of Procedure: 02/04/21 Procedure(s) Performed: BRIEF HISTORY: Patient is a 75-year-old pleasant female scheduled for an elective colonoscopy as a part of evaluation of chronic diarrhea for the last several months duration. She has vomited from 4-5 a day which are loose to watery in consistency. No blood or mucus in the stool. She also has family history of colon cancer diagnosed in her sister at age 60. PROCEDURE PERFORMED: Colonoscopy with random biopsies. PREOPERATIVE DIAGNOSIS: Chronic diarrhea and family history of colon cancer. IV sedation per Anesthesia. PROCEDURE: After informed consent was obtained, the patient, was brought into the endoscopy unit. IV sedation was administered by Anesthesia under continuous monitoring. Digital rectal examination was normal. Initially the Olympus CF-160 flexible video colonoscope was then inserted in the rectum, gradually advanced into the cecum without any difficulty. Careful examination was performed as the scope was gradually being withdrawn. Ileocecal valve and the appendiceal orifice were visualized and appeared normal. Prep was excellent. Mucosa of the cecum, ascending colon, transverse colon, descending colon, appeared normal. There were scattered left-sided diverticulosis seen. The sigmoid colon there was a 3 mm and 5 mm sessile polyp removed by cold biopsy. Rest of the sigmoid colon, and rectum appeared normal. Retroflexion was performed in the rectum and no lesions were seen. The patient tolerated the procedure well. IMPRESSION: 3 mm and 5 mm sigmoid polyp status post removal by cold biopsy Scattered left-sided diverticulosis RECOMMENDATIONS: Findings of this examination were discussed with the patient as well as a family. She was advised to follow with the biopsy results and she'll be seen in office in 2-3 weeks.
[2021-02-04 09:24] VITALS: BP 111/76; PULSE 85; RESP 18
== END ==
LOC: ORWHC2ENDO 07:34
PROVIDERS: ATTEND Internal Medicine Gastroenterology
DX: K52.9 Noninfective gastroenteritis and colitis, unspecified (principal); I10 Essential (primary) hypertension; E78.5 Hyperlipidemia, unspecified; E11.9 Type 2 diabetes mellitus without complications; Z80.0 Family history of malignant neoplasm of digestive organs; Z79.01 Long term (current) use of anticoagulants; Z79.84 Long term (current) use of oral hypoglycemic drugs; Z79.899 Other long term (current) drug therapy; Z88.0 Allergy status to penicillin; Z88.1 Allergy status to other antibiotic agents
CPT/HCPCS: 88305; 45380; J2704

== ENCOUNTER → 2023-01-10 | Outpatient (CLI) | payer MEDICARE ==
[2023-01-10 22:38] LABS: HCT 37.2 % (37.2-46.3); HGB 11.6 g/dL (12.0-15.0); MCH 30.4 pg (27.0-32.0); MCHC 31.2 g/dL (32.0-37.0); MCV 97.4 fL (80.0-97.0); Mean Platelet Volume 10.4 fL (9.5-12.2); NRBC Per 100 WBC 0 /100 WBCS (0.0-0.0); Platelet Count 221 X 10*3/uL (140-440); RBC 3.82 X 10*6/uL (4.10-5.20); RDW 14.1 % (11.5-14.5)
[2023-01-10 23:09] LABS: ALT 24 U/L (8-44); AST 17 U/L (13-35); African American GFR (CKD) 67.7 (60.0-200.0); Albumin 4.4 g/dL (3.8-4.9); Alkaline Phosphatase 56 U/L (41-126); BUN/Creat Ratio 20.49 Ratio (12.00-20.00); Blood Urea Nitrogen 19.3 mg/dL (9.0-27.0); Calcium 9.8 mg/dL (8.7-10.3); Carbon Dioxide 28.2 mmol/L (20.0-27.5); Chloride 102 mmol/L (96-109); Globulin 2.6 g/dL (1.6-3.3); Glucose 113 mg/dL (70-110); Non-African American GFR(CKD) 58.4 (60.0-200.0); Potassium 4.6 mmol/L (3.5-5.5); Sodium 142 mmol/L (135-145); Total Bilirubin <0.15 mg/dL (0.30-1.20)
== END | disposition home or self-care (01) ==
LOC: LABWHC1 15:37
PROVIDERS: ATTEND Internal Medicine Interventional Cardiology
DX: I48.3 Typical atrial flutter (principal)
CPT/HCPCS: 36415; 80053; 84443; 85027

== ENCOUNTER 2023-01-17 10:59 | Inpatient (IN) | payer MEDICARE ==
--- NOTE | 2023-01-17 11:33 | ED ---
Arrhythmia/Palpitations HPI - General Chief Complaint: Arrhythmia/Palpitations Stated Complaint: afib, sob Time Seen by Provider: 01/17/23 11:10 Source: patient Mode of arrival: wheelchair Limitations: no limitations - History of Present Illness Initial Comments: 77-year-old female past medical history of A. fib on xarelto who presents to the emergency department for palpitations. Patient reports that she saw her street contractor a week and a half ago ago and had to wear a heart monitor. States that the heart monitor caused her significant stress because she wakes up multiple times in the middle the night to go the bathroom. States with the monitor she would have to unhook herself and take it with her. She began feeling her heart racing at that time however has not sought care. She has had shortness of breath with some pain in her right upper quadrant. No nausea or vomiting. Has been taking her medications as directed. She states that she normally is not in A. fib but can feel when she goes into it. She denies chest pain. No fevers, chills or cough. No other alleviating, precipitating or offering factors - Related Data Home Medications Medication Instructions Recorded Confirmed Atorvastatin [Lipitor] 40 mg PO HS 01/24/17 01/17/23 Omeprazole [PriLOSEC] 20 mg PO DAILY 01/24/17 01/17/23 sitaGLIPtin [Januvia] 100 mg PO DAILY 01/24/17 01/17/23 Pioglitazone [Actos] 30 mg PO DAILY 11/21/20 01/17/23 ALPRAZolam [Xanax] 0.125 mg PO BID 01/30/21 01/17/23 Metoprolol Succinate [Toprol XL] 100 mg PO BID 01/30/21 01/17/23 Ubidecarenone [Co Q-10] 100 mg PO DAILY 01/30/21 01/17/23 Biotin [Biotin Disolve] 5,000 mcg PO DAILY 01/17/23 01/17/23 Calcium Citrate/Vitamin D3 1 tab PO DAILY 01/17/23 01/17/23 [Citracal + D Maximum Caplet] Carboxymethylcellulose Sodium 1 drop BOTH EYES BID 01/17/23 01/17/23 [Refresh Tears] Cholecalciferol [Vitamin D3 (25 25 mcg PO DAILY 01/17/23 01/17/23 Mcg = 1000 Iu)] Chromium Picolinate 200 mcg PO DAILY 01/17/23 01/17/23 Cranberry 4200mg 1 cap PO DAILY 01/17/23 01/17/23 Diphenoxylate HCl/Atropine 2 tab PO QID PRN 01/17/23 01/17/23 [Lomotil 2.5-0.025 mg Tablet] Rivaroxaban [Xarelto] 20 mg PO HS 01/17/23 01/17/23 Triamterene-Hctz 37.5-25Mg 0.5 tab PO DAILY 01/17/23 01/17/23 [Maxzide 37.5-25] Turmeric Root Extract [Turmeric 500 mg PO DAILY 01/17/23 01/17/23 Curcumin] metFORMIN HCL [Glucophage] 850 mg PO BID 01/17/23 01/17/23 Previous Rx's Medication Instructions Recorded Digoxin [Lanoxin] 125 mcg PO DAILY #30 tab 01/21/23 Diltiazem Oral [Cardizem*] 30 mg PO TID #90 tab 01/21/23 Magnesium Oxide [Mag-Ox] 200 mg PO DAILY #30 tab 01/21/23 Allergies Allergy/AdvReac Type Severity Reaction Status Date / Time amoxicillin [From Augmentin] Allergy Rash/Hives Verified 01/17/23 13:52 clavulanic acid Allergy Rash/Hives Verified 01/17/23 13:52 [From Augmentin] Penicillins Allergy Rash/Hives Verified 01/17/23 13:52 Review of Systems ROS Statement: Those systems with pertinent positive or pertinent negative responses have been documented in the HPI. ROS Other: All systems not noted in ROS Statement are negative. Past Medical History Past Medical History: Atrial Fibrillation, Coronary Artery Disease (CAD), Heart Failure, Diabetes Mellitus, GERD/Reflux, Hyperlipidemia, Hypertension, Osteoarthritis (OA), Skin Disorder Additional Past Medical History / Comment(s): heart murmur, born with bicuspid aorta, diarrhea, "leaky bladder", recent "blood clot in upper part of my heart- was seen in [facility] with racing heart and heart failure and e-coli infection in urine", diarrhea, hx hiatal hernia,umbilical hernia, rash on abdomen, anemia, low magnesium, History of Any Multi-Drug Resistant Organisms: None Reported Past Surgical History: Bladder Surgery, Cardiac Valve Replacement, Heart Catheterization, Hysterectomy, Joint Replacement, Tubal Ligation Additional Past Surgical History / Comment(s): rt hip replacement, HARJINDER, bladder suspension x 2, 2018-aortic valve replacement, Past Anesthesia/Blood Transfusion Reactions: Previous Problems w/ Anesthesia, Motion Sickness Additional Past Anesthesia/Blood Transfusion Reaction / Comment(s): "long time coming out" Past Psychological History: Anxiety Smoking Status: Never smoker Past Alcohol Use History: None Reported Past Drug Use History: None Reported - Past Family History Father Family Medical History: Cancer Additional Family Medical History / Comment(s): prostate Daughter(s) Family Medical History: Cancer Additional Family Medical History / Comment(s): breast Sister(s) Family Medical History: Cancer Additional Family Medical History / Comment(s): colon General Exam Limitations: no limitations General appearance: alert, in no apparent distress Head exam: Present: atraumatic, normocephalic, normal inspection Eye exam: Present: normal appearance, PERRL, EOMI. Absent: scleral icterus, conjunctival injection, periorbital swelling ENT exam: Present: normal exam, mucous membranes moist Neck exam: Present: normal inspection. Absent: tenderness, meningismus, lymphadenopathy Respiratory exam: Present: normal lung sounds bilaterally. Absent: respiratory distress, wheezes, rales, rhonchi, stridor Cardiovascular Exam: Present: tachycardia, irregular rhythm, normal heart sounds. Absent: systolic murmur, diastolic murmur, rubs, gallop, clicks GI/Abdominal exam: Present: soft, normal bowel sounds. Absent: distended, tenderness, guarding, rebound, rigid Extremities exam: Present: normal inspection, full ROM, normal capillary refill. Absent: tenderness, pedal edema, joint swelling, calf tenderness Back exam: Present: normal inspection Neurological exam: Present: alert, oriented X3, CN II-XII intact Psychiatric exam: Present: normal affect, normal mood Skin exam: Present: warm, dry, intact, normal color. Absent: rash Course Vital Signs 01/17/23 01/17/23 01/17/23 11:04 11:06 12:00 Temperature 98.1 F Pulse Rate 134 H 137 H Pulse Rate [ 133 H Floral Decorator ] Respiratory 20 20 Rate Blood Pressure 110/70 116/78 Blood Pressure [Right Arm] O2 Sat by Pulse 100 100 Oximetry 01/17/23 01/17/23 01/17/23 12:06 13:00 15:00 Temperature Pulse Rate 133 H 114 H 90 Pulse Rate [ Floral Decorator ] Respiratory 20 20 20 Rate Blood Pressure 94/63 94/63 96/60 Blood Pressure [Right Arm] O2 Sat by Pulse 99 97 98 Oximetry 01/17/23 01/17/23 01/17/23 15:29 15:57 16:00 Temperature Pulse Rate 90 90 Pulse Rate [ 95 Floral Decorator ] Respiratory 16 20 16 Rate Blood Pressure 97/70 97/60 Blood Pressure 96/65 [Right Arm] O2 Sat by Pulse 96 97 98 Oximetry 01/17/23 01/17/23 01/17/23 16:37 17:00 18:00 Temperature Pulse Rate 95 90 94 Pulse Rate [ 94 Floral Decorator ] Respiratory 20 20 16 Rate Blood Pressure 94/57 90/62 94/57 Blood Pressure 94/57 [Right Arm] O2 Sat by Pulse 98 98 98 Oximetry 01/17/23 01/17/23 18:26 18:37 Temperature Pulse Rate 94 Pulse Rate [ 118 H Floral Decorator ] Respiratory 20 16 Rate Blood Pressure 94/57 Blood Pressure 112/57 [Right Arm] O2 Sat by Pulse 98 100 Oximetry EKG Findings - EKG Comments: EKG Findings:: EKG demonstrates a flutter with a rate of 133. QRS 75. QTC of 361. No acute ST segment elevation. ST depression V4 through V6, 2, 3, aVF. Likely rate dependent Medical Decision Making - Medical Decision Making Was pt. sent in by a medical professional or institution (, PA, [employer], urgent care, hospital, or longterm...) When possible be specific @ -No Did you speak to anyone other than the patient for history (EMS, parent, family, police, friend...)? What history was obtained from this source @ -No Did you review nursing and triage notes (agree or disagree)? Why? @ -I reviewed and agree with nursing and triage notes Were old charts reviewed (outside hosp., previous admission, EMS record, old EKG, old radiological studies, urgent care reports/EKG's, longterm records)? Report findings @ -old charts were reviewed Differential Diagnosis (chest pain, altered mental status, abdominal pain women, abdominal pain men, vaginal bleeding, weakness, fever, dyspnea, syncope, headache, dizziness, GI bleed, back pain, seizure, CVA, palpatations, mental health, musculoskeletal)? @ -palpitations, sinus tach, afib with rvr EKG interpreted by me (3pts min.). @ -As above X-rays interpreted by me (1pt min.). @ -yes CT interpreted by me (1pt min.). @ -none done U/S interpreted by me (1pt. min.). @ -None done What testing was considered but not performed or refused? (CT, X-rays, U/S, labs)? Why? @ -None What meds were considered but not given or refused? Why? @ -None Did you discuss the management of the patient with other professionals (professionals i.e. , PA, [employer], lab, RT, psych nurse, social worker psychiatric, coffee brewer, teacher, chief talent officer, patient case manager)? Give summary @ -admitting physician Was smoking cessation discussed for >3mins.? @ -No Was critical care preformed (if so, how long)? @ -yes, 35 minutes Were there social determinants of health that impacted care today? How? (Homelessness, low income, unemployed, alcoholism, drug addiction, transportation, low edu. Level, literacy, decrease access to med. care, half-way, rehab)? @ -No Was there de-escalation of care discussed even if they declined (Discuss DNR or withdrawal of care, Hospice)? DNR status @ -No What co-morbidities impacted this encounter? (DM, HTN, Smoking, COPD, CAD, Cancer, CVA, ARF, Chemo, Hep., AIDS, mental health diagnosis, sleep apnea, morbid obesity)? @ -afib Was patient admitted / discharged? Hospital course, mention meds given and route , prescriptions, significant lab abnormalities, going to OR and other pertinent info. @ -Upon arrival patient is placed into room 28. Thorough history and physical exam was performed. She is placed on bus driver/monitor which demonstrates A. fib with RVR. IV is established laboratory studies are conducted. Magnesium low at 1.3. She is given 2 g of magnesium. Gallbladder ultrasound is performed which demonstrates borderline liver but no gallstones. Chest x-ray demonstrates no acute cardiopulmonary process. She is started on an amiodarone drip due to mildly low blood pressures. Case is discussed with Dr. Cobos who will admit the patient with cardiology consult Undiagnosed new problem with uncertain prognosis? @ -yes Drug Therapy requiring intensive monitoring for toxicity (Heparin, Nitro, Insulin, Cardizem)? @ -No Were any procedures done? @ -no Diagnosis/symptom? @ -afib with rvr Acute, or Chronic, or Acute on Chronic? @ -acute Uncomplicated (without systemic symptoms) or Complicated (systemic symptoms)? @ -complicated Side effects of treatment? @ -No Exacerbation, Progression, or Severe Exacerbation? @ -No Poses a threat to life or bodily function? How? (Chest pain, USA, CO, pneumonia, PE, COPD, DKA, ARF, appy, cholecystitis, CVA, Diverticulitis, Homicidal, Suicidal, threat to staff... and all critical care pts) @ -yes - Lab Data Result diagrams: 01/21/23 09:41 01/21/23 09:41 Lab Results 01/17/23 01/17/23 01/17/23 Range/Units 11:29 11:29 11:29 WBC 5.7 (3.8-10.6) k/uL RBC 3.49 L (3.80-5.40) m/uL Hgb 10.6 L (11.4-16.0) gm/dL Hct 32.8 L (34.0-46.0) % MCV 93.9 (80.0-100.0) fL MCH 30.3 (25.0-35.0) pg MCHC 32.2 (31.0-37.0) g/dL RDW 14.1 (11.5-15.5) % Plt Count 208 (150-450) k/uL MPV 8.1 Neutrophils % 78 % Lymphocytes % 13 % Monocytes % 5 % Eosinophils % 1 % Basophils % 1 % Neutrophils # 4.5 (1.3-7.7) k/uL Lymphocytes # 0.8 L (1.0-4.8) k/uL Monocytes # 0.3 (0-1.0) k/uL Eosinophils # 0.1 (0-0.7) k/uL Basophils # 0.0 (0-0.2) k/uL PT 12.8 H (9.0-12.0) sec INR 1.2 H (<1.2) APTT 26.7 (22.0-30.0) sec Sodium 139 (137-145) mmol/L Potassium 4.5 (3.5-5.1) mmol/L Chloride 102 (98-107) mmol/L Carbon Dioxide 28 (22-30) mmol/L Anion Gap 9 mmol/L BUN 27 H (7-17) mg/dL Creatinine 0.92 (0.52-1.04) mg/dL Est GFR (CKD-EPI)AfAm 70 (>60 ml/min/1.73 sqM) Est GFR (CKD-EPI)NonAf 60 (>60 ml/min/1.73 sqM) Glucose 95 (74-99) mg/dL Calcium 8.5 (8.4-10.2) mg/dL Magnesium 1.3 L (1.6-2.3) mg/dL Total Bilirubin 0.5 (0.2-1.3) mg/dL AST 60 H (14-36) U/L ALT 154 H (4-34) U/L Alkaline Phosphatase 58 (38-126) U/L Troponin I (0.000-0.034) ng/mL NT-Pro-B Natriuret Pep pg/mL Total Protein 6.2 L (6.3-8.2) g/dL Albumin 3.6 (3.5-5.0) g/dL TSH 3.200 (0.465-4.680) mIU/L Urine Color Urine Appearance (Clear) Urine pH (5.0-8.0) Ur Specific [place] (1.001-1.035) Urine Protein (Negative) Urine Glucose (UA) (Negative) Urine Ketones (Negative) Urine Blood (Negative) Urine Nitrite (Negative) Urine Bilirubin (Negative) Urine Urobilinogen (<2.0) mg/dL Ur Leukocyte Esterase (Negative) Urine RBC (0-5) /hpf Urine WBC (0-5) /hpf 01/17/23 01/17/23 01/17/23 Range/Units 11:29 11:29 12:06 WBC (3.8-10.6) k/uL RBC (3.80-5.40) m/uL Hgb (11.4-16.0) gm/dL Hct (34.0-46.0) % MCV (80.0-100.0) fL MCH (25.0-35.0) pg MCHC (31.0-37.0) g/dL RDW (11.5-15.5) % Plt Count (150-450) k/uL MPV Neutrophils % % Lymphocytes % % Monocytes % % Eosinophils % % Basophils % % Neutrophils # (1.3-7.7) k/uL Lymphocytes # (1.0-4.8) k/uL Monocytes # (0-1.0) k/uL Eosinophils # (0-0.7) k/uL Basophils # (0-0.2) k/uL PT (9.0-12.0) sec INR (<1.2) APTT (22.0-30.0) sec Sodium (137-145) mmol/L Potassium (3.5-5.1) mmol/L Chloride (98-107) mmol/L Carbon Dioxide (22-30) mmol/L Anion Gap mmol/L BUN (7-17) mg/dL Creatinine (0.52-1.04) mg/dL Est GFR (CKD-EPI)AfAm (>60 ml/min/1.73 sqM) Est GFR (CKD-EPI)NonAf (>60 ml/min/1.73 sqM) Glucose (74-99) mg/dL Calcium (8.4-10.2) mg/dL Magnesium (1.6-2.3) mg/dL Total Bilirubin (0.2-1.3) mg/dL AST (14-36) U/L ALT (4-34) U/L Alkaline Phosphatase (38-126) U/L Troponin I <0.012 (0.000-0.034) ng/mL NT-Pro-B Natriuret Pep 3830 pg/mL Total Protein (6.3-8.2) g/dL Albumin (3.5-5.0) g/dL TSH (0.465-4.680) mIU/L Urine Color Light Yellow Urine Appearance Clear (Clear) Urine pH 5.5 (5.0-8.0) Ur Specific [place] 1.005 (1.001-1.035) Urine Protein Negative (Negative) Urine Glucose (UA) Negative (Negative) Urine Ketones Negative (Negative) Urine Blood Negative (Negative) Urine Nitrite Negative (Negative) Urine Bilirubin Negative (Negative) Urine Urobilinogen <2.0 (<2.0) mg/dL Ur Leukocyte Esterase Trace H (Negative) Urine RBC <1 (0-5) /hpf Urine WBC 1 (0-5) /hpf Disposition Clinical Impression: Atrial fibrillation with RVR, Hypomagnesemia, Palpitations Disposition: ADMITTED IP TO THIS HOSP Condition: Fair Is patient prescribed a controlled substance at d/c from ED?: No Time of Disposition: 14:54 Decision to Admit Reason: Admit from [facility] Decision Date: 01/17/23 Decision Time: 14:54
[2023-01-17 12:32] LABS: Basophils % (A) 1 %; Eosinophils # (A) 0.1 k/uL (0-0.7); Eosinophils % (A) 1 %; HCT 32.8 % (34.0-46.0); HGB 10.6 gm/dL (11.4-16.0); Lymphocytes # (A) 0.8 k/uL (1.0-4.8); Lymphocytes % (A) 13 %; MCH 30.3 pg (25.0-35.0); MCHC 32.2 g/dL (31.0-37.0); MCV 93.9 fL (80.0-100.0); Mean Platelet Volume 8.1; Monocytes # (A) 0.3 k/uL (0-1.0); Monocytes % (A) 5 %; Neutrophils # (A) 4.5 k/uL (1.3-7.7); Neutrophils % (A) 78 %; Platelet Count 208 k/uL (150-450); RBC 3.49 m/uL (3.80-5.40); RDW 14.1 % (11.5-15.5); WBC 5.7 k/uL (3.8-10.6)
[2023-01-17 12:34] LABS: ALT 154 U/L (4-34); AST 60 U/L (14-36); African American GFR (CKD) 70 (>60 ml/min/1.73 sqM); Albumin 3.6 g/dL (3.5-5.0); Alkaline Phosphatase 58 U/L (38-126); Anion Gap 9 mmol/L; Blood Urea Nitrogen 27 mg/dL (7-17); Calcium 8.5 mg/dL (8.4-10.2); Carbon Dioxide 28 mmol/L (22-30); Chloride 102 mmol/L (98-107); Glucose 95 mg/dL (74-99); Magnesium 1.3 mg/dL (1.6-2.3); Non-African American GFR(CKD) 60 (>60 ml/min/1.73 sqM); Potassium 4.5 mmol/L (3.5-5.1); Sodium 139 mmol/L (137-145); Total Bilirubin 0.5 mg/dL (0.2-1.3); Total Protein 6.2 g/dL (6.3-8.2)
[2023-01-17 12:40] LABS: INR 1.2 (<1.2); Partial Thromboplastin Time 26.7 sec (22.0-30.0); Prothrombin Time 12.8 sec (9.0-12.0)
[2023-01-17 12:52] LABS: Appearance,Urine Clear (Clear); Bilirubin,Urine Negative (Negative); Blood,Urine Negative (Negative); Color,Urine Light Yellow; Glucose,Urine (UA) Negative (Negative); Ketones,Urine Negative (Negative); Leukocyte Esterase,Urine Trace (Negative); Nitrite,Urine Negative (Negative); PH, Urine 5.5 (5.0-8.0); Protein,Urine Negative (Negative); RBC,Urine <1 /hpf (0-5); Specific Gravity,Urine 1.005 (1.001-1.035); Urobilinogen,Urine <2.0 mg/dL (<2.0); WBC,Urine 1 /hpf (0-5)
--- NOTE | 2023-01-17 12:58 | XR ---
EXAMINATION TYPE: XR chest 2V DATE OF EXAM: 01/17/2023 COMPARISON: 11/20/2020 INDICATION: Dysrhythmia fast heart rate TECHNIQUE: Frontal and lateral views of the chest are obtained. FINDINGS: The heart size is normal. The pulmonary vasculature is normal. The lungs are clear. Hyperinflation is present. IMPRESSION: 1. No acute pulmonary process.
[2023-01-17] MEDS ORDERED: AMIODARONE 360 MG in DEXTROSE 5% IN WATER 200 ML IV ONE ×2 (14:14)
[2023-01-17] MEDS ORDERED: DEXTROSE 5% IN WATER 100 ML with AMIODARONE 150 MG IV ONE (14:14)
[2023-01-17] MEDS: MAGNESIUM SULFATE-D5W PMX 1 GM in DEXTROSE/WATER 1 100ML.BAG IVPB SCH ×2 (14:36→15:40)
[2023-01-17] MEDS ORDERED: NALOXONE 0.4 MG/ML 1 ML VIAL IV PRN (14:54)
[2023-01-17] MEDS ORDERED: DIPHENOX-ATROP 2.5-0.025 MG 1 EACH TAB PO PRN (15:31)
[2023-01-17] MEDS ORDERED: HYDROcodone/APAP 5-325MG 1 EACH TAB PO PRN (15:33)
[2023-01-17] MEDS: PANTOPRAZOLE 40 MG/10 ML VIAL IVP SCH ×2 (15:55→21:38)
--- NOTE | 2023-01-17 16:09 | US ---
EXAMINATION TYPE: US gallbladder DATE OF EXAM: 01/17/2023 COMPARISON: NONE CLINICAL HISTORY: 77-year-old female kath?. epigastric pain TECHNIQUE: Multiple sonographic images of the right upper quadrant are obtained. FINDINGS: EXAM MEASUREMENTS: Liver Length: 18.0 cm Gallbladder Wall: 0.2 cm CBD: 0.6 cm Right Kidney: 10.3 x 3.7 x 4.3 cm Pancreas: wnl Liver: wnl Gallbladder: No abnormal distention, wall thickening, pericholecystic fluid, or shadowing calculi. Evidence for sonographic Montero's sign: no CBD: Upper limits of normal in caliber. Right Kidney: wnl IMPRESSION: 1. Borderline size liver but with relatively normal, homogeneous ultrasound appearance. 2. No gallstones or evidence of acute cholecystitis. 3. Borderline dilated bile duct, acceptable given patient's age.
[2023-01-17] MEDS: metFORMIN 850 MG TAB PO SCH (18:19)
[2023-01-17] MEDS: AMIODARONE 450 MG in DEXTROSE 5% IN WATER 250 ML IV SCH ×2 (20:26)
[2023-01-17 21:00] LABS: Glucose,Whole Blood 141 mg/dL (70-110)
[2023-01-17] MEDS ORDERED: RIVAROXABAN 20 MG TAB PO SCH (21:00)
[2023-01-17] MEDS: ALPRAZolam 0.25 MG TAB PO SCH (21:39)
[2023-01-17] MEDS: ATORVASTATIN 40 MG TAB PO SCH (21:39)
--- NOTE | 2023-01-18 01:44 | HP ---
HISTORY AND PHYSICAL CHIEF COMPLAINT: Palpitations. HISTORY OF PRESENT ILLNESS: This is a 77-year-old woman with a past medical history of multiple medical problems including atrial fibrillation, was complaining of palpitations. The patient came to [facility], found to have atrial fibrillation and fast ventricular rate. The patient was started on amiodarone drip with improvement in the rhythm. The patient had a rather complicated history of atrial fibrillation with multiple medication trials and most recently the HARJINDER showed apparently atrial thrombus and so a cardioversion could not be performed. There is no history of any fever, rigors, or chills at this time. The patient also complains of some mid abdominal pain. PAST MEDICAL HISTORY: Reviewed include CHF, CAD. Rest of the history and rest of the chart is also reviewed. HOME MEDICATIONS: Reviewed include Januvia. Dose and rest of medications noted. ALLERGIES: Reviewed include Augmentin. Rest of the allergies noted. FAMILY HISTORY: History of prostate cancer. SOCIAL HISTORY: No history of smoking or alcohol intake. REVIEW OF SYSTEMS: A 14-point review is negative except as mentioned earlier. PHYSICAL EXAMINATION: VITAL SIGNS: Pulse 114 and irregular, blood pressure 94/68, respirations 20. HEENT: Conjunctivae normal. NECK: No JVD. CARDIOVASCULAR: S1, S2, irregular. RESPIRATIONS: Clear to auscultation. ABDOMEN: Soft, minimal diffuse tenderness in the mid epigastrium. No guarding. No tenderness. Bowel sounds present. No ascites. LEGS: No edema. NERVOUS SYSTEM: No focal deficits. SKIN: No ulcer, rash, bleeding. LABORATORY DATA: Reviewed. ASSESSMENT: 1. Atrial fibrillation with fast ventricular rate. 2. Elevated AST, ALT. 3. Abdominal pain, rule out acute cholecystitis. 4. History of coronary artery disease. 5. History of congestive heart failure. 6. Diabetes mellitus, type 2. 7. Multiple medical issues. RECOMMENDATIONS AND DISCUSSION: This is a 77-year-old woman who presented with multiple complex medical issues. We will monitor the patient closely. I recommend to continue current medications. Continue symptomatic treatment. Otherwise, continue with amiodarone drip. Cardiology consultation. I would also recommend ultrasound of the abdomen to rule out the possibility of any cholecystitis. Continue to monitor. Repeat labs will be ordered. See orders for further details. MMODL / IJN: [id number] /
[2023-01-18 06:03] LABS: Glucose,Whole Blood 152 mg/dL (70-110)
[2023-01-18] MEDS: metFORMIN 850 MG TAB PO SCH ×2 (06:53→17:43)
[2023-01-18] MEDS ORDERED: PANTOPRAZOLE 40 MG TABLET PO SCH (07:30)
[2023-01-18 08:44] LABS: Basophils % (A) 0 %; Eosinophils # (A) 0.1 k/uL (0-0.7); Eosinophils % (A) 2 %; HGB 10.3 gm/dL (11.4-16.0); Lymphocytes # (A) 0.9 k/uL (1.0-4.8); Lymphocytes % (A) 15 %; MCH 30.6 pg (25.0-35.0); MCHC 32.2 g/dL (31.0-37.0); MCV 94.9 fL (80.0-100.0); Mean Platelet Volume 8.6; Monocytes # (A) 0.4 k/uL (0-1.0); Monocytes % (A) 6 %; Neutrophils # (A) 4.7 k/uL (1.3-7.7); Neutrophils % (A) 75 %; Platelet Count 204 k/uL (150-450); RBC 3.37 m/uL (3.80-5.40); RDW 14.3 % (11.5-15.5); WBC 6.3 k/uL (3.8-10.6)
[2023-01-18] MEDS ORDERED: NON FORMULARY DRUG (Biotin [Biotin Disolve] 5,000 MCG Tablet) PO SCH (09:00)
[2023-01-18 09:07] LABS: Albumin 3.7 g/dL (3.5-5.0); Calcium 8.6 mg/dL (8.4-10.2); Potassium 4.6 mmol/L (3.5-5.1); Total Bilirubin 0.4 mg/dL (0.2-1.3); Total Protein 6.3 g/dL (6.3-8.2)
--- NOTE | 2023-01-18 10:20 | P.CRDCN ---
History of Present Illness Consult date: 01/18/23 History of present illness: HISTORY OF PRESENT ILLNESS: This is a 77-year-old female with a past medical history significant for prosthetic aortic valve replacement in 2017, normal coronary arteries per cardiac catheterization in 2017, atrial fibrillation, ANGEL clot found on HARJINDER in 2020, and atrial flutter. Patient follows in the office with Dr. Bond. We have been asked to see the patient in consultation for atrial flutter. Patient examined at the bedside. Patient was recently seen in the office on 01/10/2023 and was found to be in atrial flutter with RVR. The patient's dose of metoprolol was increased. The patient states over the past couple days she has been feeling worse palpitations, increased fatigue, and increased shortness of breath with activity. The patient presented to the ER and was found to be in atrial flutter with RVR. Patient's blood pressures were borderline on admission. She was started on IV amiodarone. Patient's blood pressures have improved this morning with a systolic around 110. Telemetry currently reveals atrial flutter with a heart rate around 110. * EKG reveals atrial flutter with RVR * Chest xray negative for acute process * Laboratory data: WBC 6.3. Hemoglobin 10.3. Platelet count 204. Sodium 138. Potassium 4.6. BUN 24. Creatinine 0.83. Troponin negative 3 * Current home cardiac medications include Lipitor 40 mg at night, metoprolol succinate 100 mg twice a day, Xarelto 20 mg at night, and Triamterene-HCTZ 37.5-25mg daily * Most recent echocardiogram obtained in 01/03/2023 reveals ejection fraction 52%, prosthetic aortic valve, [id number] TR, moderate MR * Cardiac catheterization history: October 2017 revealing normal coronary arteries REVIEW OF SYSTEMS: At the time of my exam: CONSTITUTIONAL: Denies fever or chills. HEENT: Denies blurred vision, vision changes, or eye pain. Denies hemoptysis CARDIOVASCULAR: Denies chest pain. Denies orthopnea. Denies PND. Denies palpitations RESPIRATORY: Denies shortness of breath. GASTROINTESTINAL: Denies abdominal pain. Denies nausea or vomiting. HEMATOLOGIC: Denies bleeding disorders. GENITOURINARY: Denies any blood in urine. SKIN: Denies pruitis. Denies rash. PHYSICAL EXAM: VITAL SIGNS: Reviewed. GENERAL: Well-developed in no acute distress. HEENT: Head is normocephalic. Pupils are equal, round. Sclerae anicteric. Mucous membranes of the mouth are moist. Neck supple. No JVD or thyromegaly LUNGS: Respirations even and unlabored. Lungs essentially clear to auscultation bilaterally. HEART: Tachycardic. Regular rate and rhythm. S1 and S2 heard. ABDOMEN: Soft. Nondistended. Nontender. EXTREMITIES: Normal range of motion. No clubbing or cyanosis. Peripheral pulses intact. No lower extremity edema NEUROLOGIC: Awake and alert. Oriented x 3. ASSESSMENT: Palpitations Shortness of breath Persistent typical atrial flutter with RVR Borderline hypotension, resolved History of prosthetic aortic valve, 2018 Normal coronary arteries, per angiogram in 2018 History of left atrial appendage clot per HARJINDER, 2020 Hypertension Hyperlipidemia Diabetes Hypomagnesemia PLAN: No need to repeat echocardiogram as this was performed earlier this month in the office Continue IV amiodarone Resume home dose of metoprolol succinate 100 mg twice a day Resume additional cardiac medications Continue telemetry monitoring Will consider cardioversion tomorrow. NPO at midnight. Further recommendations pending patient course Nurse practitioner note has been reviewed by physician. Signing provider agrees with the documented findings, assessment, and plan of care. Past Medical History Past Medical History: Atrial Fibrillation, Coronary Artery Disease (CAD), Heart Failure, Diabetes Mellitus, GERD/Reflux, Hyperlipidemia, Hypertension, Osteoarthritis (OA), Skin Disorder Additional Past Medical History / Comment(s): heart murmur, born with bicuspid a brendan, diarrhea, "leaky bladder", recent "blood clot in upper part of my heart- was seen in with racing heart and heart failure and e-coli infection in urine", diarrhea, hx hiatal hernia,umbilical hernia, rash on abdomen, anemia, low magnesium, History of Any Multi-Drug Resistant Organisms: None Reported Past Surgical History: Bladder Surgery, Cardiac Valve Replacement, Heart Catheterization, Hysterectomy, Joint Replacement, Tubal Ligation Additional Past Surgical History / Comment(s): rt hip replacement, HARJINDER, bladder suspension x 2, 2018-aortic valve replacement, Past Anesthesia/Blood Transfusion Reactions: Previous Problems w/ Anesthesia, Motion Sickness Additional Past Anesthesia/Blood Transfusion Reaction / Comment(s): "long time coming out" Past Psychological History: Anxiety Additional Psychological History / Comment(s): "i get hyper" Smoking Status: Never smoker Past Alcohol Use History: None Reported Past Drug Use History: None Reported - Past Family History Father Family Medical History: Cancer Additional Family Medical History / Comment(s): prostate Daughter(s) Family Medical History: Cancer Additional Family Medical History / Comment(s): breast Sister(s) Family Medical History: Cancer Additional Family Medical History / Comment(s): colon Medications and Allergies Home Medications Medication Instructions Recorded Confirmed Type Atorvastatin [Lipitor] 40 mg PO HS 01/24/17 01/17/23 History Omeprazole [PriLOSEC] 20 mg PO DAILY 01/24/17 01/17/23 History sitaGLIPtin [Januvia] 100 mg PO DAILY 01/24/17 01/17/23 History Pioglitazone [Actos] 30 mg PO DAILY 11/21/20 01/17/23 History ALPRAZolam [Xanax] 0.125 mg PO BID 01/30/21 01/17/23 History Metoprolol Succinate [Toprol XL] 100 mg PO BID 01/30/21 01/17/23 History Ubidecarenone [Co Q-10] 100 mg PO DAILY 01/30/21 01/17/23 History Biotin [Biotin Disolve] 5,000 mcg PO DAILY 01/17/23 01/17/23 History Calcium Citrate/Vitamin D3 1 tab PO DAILY 01/17/23 01/17/23 History [Citracal + D Maximum Caplet] Carboxymethylcellulose Sodium 1 drop BOTH EYES BID 01/17/23 01/17/23 History [Refresh Tears] Cholecalciferol [Vitamin D3 (25 25 mcg PO DAILY 01/17/23 01/17/23 History Mcg = 1000 Iu)] Chromium Picolinate 200 mcg PO DAILY 01/17/23 01/17/23 History Cranberry 4200mg 1 cap PO DAILY 01/17/23 01/17/23 History Diphenoxylate HCl/Atropine 2 tab PO QID PRN 01/17/23 01/17/23 History [Lomotil 2.5-0.025 mg Tablet] Rivaroxaban [Xarelto] 20 mg PO HS 01/17/23 01/17/23 History Triamterene-Hctz 37.5-25Mg 0.5 tab PO DAILY 01/17/23 01/17/23 History [Maxzide 37.5-25] Turmeric Root Extract [Turmeric 500 mg PO DAILY 01/17/23 01/17/23 History Curcumin] metFORMIN HCL [Glucophage] 850 mg PO BID 01/17/23 01/17/23 History Allergies Allergy/AdvReac Type Severity Reaction Status Date / Time amoxicillin [From Augmentin] Allergy Rash/Hives Verified 01/17/23 13:52 clavulanic acid Allergy Rash/Hives Verified 01/17/23 13:52 [From Augmentin] Penicillins Allergy Rash/Hives Verified 01/17/23 13:52 Physical Exam Vitals: Vital Signs Temp Pulse Pulse Pulse Resp BP BP 01/18/23 08:53 01/18/23 08:00 97.8 F 117 H 18 110/78 01/18/23 04:04 98.2 F 101 H 16 01/18/23 02:00 16 01/17/23 23:33 98.0 F 108 H 16 01/17/23 19:44 98.1 F 110 H 18 01/17/23 18:37 118 H 16 01/17/23 18:26 94 20 94/57 01/17/23 18:00 94 94 16 94/57 01/17/23 17:00 90 20 90/62 01/17/23 16:37 95 20 94/57 01/17/23 16:00 90 16 97/60 01/17/23 15:57 90 20 97/70 01/17/23 15:29 95 16 01/17/23 15:00 90 20 96/60 01/17/23 13:00 114 H 20 94/63 01/17/23 12:06 133 H 20 94/63 01/17/23 12:00 133 H 01/17/23 11:06 137 H 20 116/78 01/17/23 11:04 98.1 F 134 H 20 110/70 BP Pulse Ox 01/18/23 08:53 97 01/18/23 08:00 98 01/18/23 04:04 103/68 99 01/18/23 02:00 01/17/23 23:33 108/67 99 01/17/23 19:44 104/68 99 01/17/23 18:37 112/57 100 01/17/23 18:26 98 01/17/23 18:00 94/57 98 01/17/23 17:00 98 01/17/23 16:37 98 01/17/23 16:00 98 01/17/23 15:57 97 01/17/23 15:29 96/65 96 01/17/23 15:00 98 01/17/23 13:00 97 01/17/23 12:06 99 01/17/23 12:00 01/17/23 11:06 100 01/17/23 11:04 100 Intake and Output 01/17/23 01/18/23 01/18/23 22:59 06:59 14:59 Other: Voiding Method Toilet # Voids 1 Weight 58.967 kg Results 01/18/23 07:50 01/18/23 07:50 Cardiac Enzymes 01/17/23 01/17/23 01/17/23 Range/Units 11:29 11:29 16:01 AST 60 H (14-36) U/L Troponin I <0.012 <0.012 (0.000-0.034) ng/mL 01/17/23 01/18/23 Range/Units 18:58 07:50 AST 49 H (14-36) U/L Troponin I <0.012 (0.000-0.034) ng/mL Coagulation 01/17/23 Range/Units 11:29 PT 12.8 H (9.0-12.0) sec APTT 26.7 (22.0-30.0) sec CBC 01/17/23 01/18/23 Range/Units 11:29 07:50 WBC 5.7 6.3 (3.8-10.6) k/uL RBC 3.49 L 3.37 L (3.80-5.40) m/uL Hgb 10.6 L 10.3 L (11.4-16.0) gm/dL Hct 32.8 L 32.0 L (34.0-46.0) % Plt Count 208 204 (150-450) k/uL Comprehensive Metabolic Panel 01/17/23 01/18/23 Range/Units 11:29 07:50 Sodium 139 138 (137-145) mmol/L Potassium 4.5 4.6 (3.5-5.1) mmol/L Chloride 102 103 (98-107) mmol/L Carbon Dioxide 28 25 (22-30) mmol/L BUN 27 H 24 H (7-17) mg/dL Creatinine 0.92 0.83 (0.52-1.04) mg/dL Glucose 95 164 H (74-99) mg/dL Calcium 8.5 8.6 (8.4-10.2) mg/dL AST 60 H 49 H (14-36) U/L ALT 154 H 136 H (4-34) U/L Alkaline Phosphatase 58 63 (38-126) U/L Total Protein 6.2 L 6.3 (6.3-8.2) g/dL Albumin 3.6 3.7 (3.5-5.0) g/dL Current Medications Generic Name Dose Route Start Last Admin Trade Name Freq PRN Reason Stop Dose Admin Hydrocodone Bitart/Acetaminophen 1 each 01/17/23 15:33 Hydrocodone/Apap 5-325mg 1 Each Tab PO Q6HR PRN Pain Alprazolam 0.125 mg 01/17/23 21:00 01/17/23 21:39 Alprazolam 0.25 Mg Tab PO 0.125 mg BID JENNIFER Administration Atorvastatin Calcium 40 mg 01/17/23 21:00 01/17/23 21:39 Atorvastatin 40 Mg Tab PO 40 mg HS JENNIFER Administration Calcium Carbonate 1 each 01/18/23 09:00 Calcium Carb-Vit D 500 Mg-5 Mcg Tab PO DAILY [facility] Cholecalciferol 25 mcg 01/18/23 09:00 Cholecalciferol 25 Mcg (1000 Iu) Tablet PO DAILY [facility] Diphenoxylate HCl/Atropine 2 each 01/17/23 15:31 Diphenox-Atrop 2.5-0.025 Mg 1 Each Tab PO QID PRN Diarrhea Amiodarone HCl 450 mg/ 250 mls @ 16.667 mls/hr 01/17/23 20:15 01/17/23 20:26 Dextrose/Water IV 01/18/23 14:14 0.5 mg/min .Q15H JENNIFER 16.667 mls/hr Administration Protocol 0.5 MG/MIN Linagliptin 5 mg 01/18/23 09:00 Linagliptin 5 Mg Tablet PO DAILY [facility] Metformin HCl 850 mg 01/17/23 17:30 01/18/23 06:53 Metformin 850 Mg Tab PO 850 mg BID-W/MEALS JENNIFER Administration Metoprolol Succinate 100 mg 01/18/23 09:00 Metoprolol Succinate (Er) 100 Mg Tab.Er.24h PO BID JENNIFER Naloxone HCl 0.2 mg 01/17/23 14:54 Naloxone 0.4 Mg/Ml 1 Ml Vial IV Q2M PRN Opioid Reversal Pantoprazole Sodium 40 mg 01/17/23 15:33 01/17/23 21:38 Pantoprazole 40 Mg/10 Ml Vial IVP Not Given BID JENNIFER Pioglitazone HCl 30 mg 01/18/23 09:00 Pioglitazone 30 Mg Tab PO DAILY JENNIFER Rivaroxaban 20 mg 01/17/23 21:00 01/17/23 21:39 Rivaroxaban 20 Mg Tab PO 20 mg HS JENNIFER Administration Protocol Triamterene/Hydrochlorothiazide 0.5 each 01/18/23 09:00 Triamterene-Hctz 37.5-25mg 1 Each Tab PO DAILY JENNIFER Intake and Output 01/17/23 01/18/23 01/18/23 22:59 06:59 14:59 Other: Voiding Method Toilet # Voids 1 Weight 58.967 kg 01/18/23 07:50 01/18/23 07:50
[2023-01-18] MEDS: ALPRAZolam 0.25 MG TAB PO SCH ×2 (10:32→21:20)
[2023-01-18] MEDS: CALCIUM CARB-VIT D 500 MG-5 MCG TAB PO SCH (10:34)
[2023-01-18] MEDS: CHOLECALCIFEROL 25 MCG (1000 IU) TABLET PO SCH (10:35)
[2023-01-18] MEDS: LINAGLIPTIN 5 MG TABLET PO SCH (10:36)
[2023-01-18] MEDS: METOPROLOL SUCCINATE (ER) 100 MG TAB.ER.24H PO SCH ×2 (10:37→21:20)
[2023-01-18] MEDS: PANTOPRAZOLE 40 MG/10 ML VIAL IVP SCH ×2 (10:38→21:20)
[2023-01-18] MEDS: PIOGLITAZONE 30 MG TAB PO SCH (10:38)
[2023-01-18] MEDS: TRIAMTERENE-HCTZ 37.5-25MG 1 EACH TAB PO SCH (10:39)
[2023-01-18 11:33] LABS: Glucose,Whole Blood 145 mg/dL (70-110)
[2023-01-18] MEDS: AMIODARONE 450 MG in DEXTROSE 5% IN WATER 250 ML IV SCH ×2 (12:43)
--- NOTE | 2023-01-18 13:57 | PN ---
PROGRESS NOTE DATE OF SERVICE: 01/18/2023 SUBJECTIVE: This is a 77-year-old woman who was admitted with atrial fibrillation, fast ventricular rate, is being scheduled for HARJINDER and possible cardioversion. The patient had previous clot in the [place] apparently. No chest pain, no palpitation. Abdominal pain is better. Ultrasound of gallbladder is negative. PHYSICAL EXAMINATION: VITAL SIGNS: Pulse 116, blood pressure 120/85, respirations 16. CHEST: Clear to auscultation. CARDIOVASCULAR: S1, S2 regular. ABDOMEN: Soft. LABORATORY DATA: Reviewed. ASSESSMENT: 1. Atrial fibrillation with fast ventricular rate. 2. Elevated AST, ALT. 3. Abdominal pain, possible gastroesophageal reflux disease versus gastritis. 4. History of coronary artery disease. 5. History of congestive heart failure. 6. Diabetes mellitus type 2. 7. Multiple medical issues. RECOMMENDATIONS: Recommended to continue current management, continue symptomatic treatment. Otherwise, closely follow with Cardiology and repeat labs in the morning. Guarded prognosis. Further recommendations to follow. MMODL / IJN: [id number] /
[2023-01-18 16:24] LABS: Glucose,Whole Blood 164 mg/dL (70-110)
[2023-01-18 20:42] LABS: Glucose,Whole Blood 122 mg/dL (70-110)
[2023-01-18] MEDS ORDERED: RIVAROXABAN 15 MG TAB PO SCH (21:00)
[2023-01-18] MEDS: ATORVASTATIN 40 MG TAB PO SCH (21:20)
[2023-01-19 06:23] LABS: Glucose,Whole Blood 163 mg/dL (70-110)
[2023-01-19] MEDS: ALPRAZolam 0.25 MG TAB PO SCH ×2 (08:45→20:47)
[2023-01-19] MEDS: METOPROLOL SUCCINATE (ER) 100 MG TAB.ER.24H PO SCH ×2 (08:46→20:47)
[2023-01-19] MEDS: PANTOPRAZOLE 40 MG/10 ML VIAL IVP SCH ×2 (08:47→20:47)
[2023-01-19 09:20] LABS: Basophils % (A) 0 %; Eosinophils # (A) 0.1 k/uL (0-0.7); Eosinophils % (A) 2 %; HCT 30.4 % (34.0-46.0); Lymphocytes # (A) 0.7 k/uL (1.0-4.8); Lymphocytes % (A) 12 %; MCH 30.8 pg (25.0-35.0); MCHC 32.9 g/dL (31.0-37.0); MCV 93.7 fL (80.0-100.0); Monocytes # (A) 0.4 k/uL (0-1.0); Monocytes % (A) 7 %; Neutrophils # (A) 4.3 k/uL (1.3-7.7); Neutrophils % (A) 77 %; Platelet Count 178 k/uL (150-450); RBC 3.24 m/uL (3.80-5.40); RDW 14.5 % (11.5-15.5); WBC 5.5 k/uL (3.8-10.6)
[2023-01-19] MEDS ORDERED: LACTATED RINGERS 1,000 ML IV ONE (09:21)
[2023-01-19] MEDS ORDERED: LIDOCAINE 2% INJ 20 MG/ML (2 ML VIAL) ONE (09:25)
[2023-01-19] MEDS ORDERED: PROPOFOL 10 MG/ML 20 ML VIAL IV ONE (09:25)
[2023-01-19 09:53] LABS: Calcium 8.6 mg/dL (8.4-10.2); Potassium 4.2 mmol/L (3.5-5.1)
--- NOTE | 2023-01-19 11:30 | PCN ---
PROCEDURE NOTE INDICATION: Rule out intracardiac thrombus prior to cardioversion in a patient with atrial fibrillation with rapid ventricular rate. PROCEDURE NOTE: After obtaining informed consent, transesophageal echocardiogram was performed in left lateral position using an Omniplane probe. Local and IV sedation were obtained by the Referral Specialist as part of her preparation for cardioversion. FINDINGS: There is an echodense lesion noted within the left atrial appendage that could be due to left atrial appendage thrombus. Left atrium, right atrium appear enlarged. Left ventricle shows left ventricular hypertrophy with diffuse global hypokinesis with an ejection fraction of around 40%. Mitral valve shows mitral annular calcification with mild to moderate central mitral regurgitation. Tricuspid valve shows moderate tricuspid regurgitation noted with moderate mitral regurgitation. There is a bioprosthetic valve in aortic position that is functioning normally. There is no evidence of aortic stenosis or regurgitation. Aorta shows moderate atherosclerotic changes without any aneurysmal dilatation. CONCLUSIONS: 1. Echodense lesion within the left atrial appendage consistent with possible left atrial appendage thrombus. 2. Normally functioning bioprosthetic valve in aortic position. 3. Moderate mitral regurgitation. 4. Diffuse global hypokinesis with LV systolic dysfunction. PLAN: I am going to cancel the cardioversion at this time. Continue on her current medications with adequate heart rate control. We will discharge her home on the Xarelto that she is on, but we need to increase the dose of Xarelto to 20 mg from the 15 that she is currently on. MMODL / IJN: [id number] /
[2023-01-19] MEDS: CHOLECALCIFEROL 25 MCG (1000 IU) TABLET PO SCH (11:31)
[2023-01-19] MEDS: LINAGLIPTIN 5 MG TABLET PO SCH (11:31)
[2023-01-19] MEDS: CALCIUM CARB-VIT D 500 MG-5 MCG TAB PO SCH (11:31)
[2023-01-19] MEDS: TRIAMTERENE-HCTZ 37.5-25MG 1 EACH TAB PO SCH (11:32)
[2023-01-19] MEDS: metFORMIN 850 MG TAB PO SCH ×2 (11:32→16:34)
[2023-01-19] MEDS: PIOGLITAZONE 30 MG TAB PO SCH (11:33)
[2023-01-19 11:34] LABS: Glucose,Whole Blood 192 mg/dL (70-110)
[2023-01-19] MEDS: DILTIAZEM ORAL 30 MG TAB PO SCH ×2 (12:47→20:47)
--- NOTE | 2023-01-19 13:46 | PN ---
PROGRESS NOTE DATE OF SERVICE: 01/19/2023 SUBJECTIVE: This is a 77-year-old woman, who was admitted with atrial ablation, fast ventricular rate, also had elevated AST, ALT. The patient underwent a HARJINDER, which showed echodense lesions, left atrial appendage, possible left atrial thrombus, and moderate mitral regurgitation. The patient is started on Cardizem. No chest pain. No palpitation. OBJECTIVE: VITAL SIGNS: Pulse is 127, blood pressure 132/80, respirations 18. CHEST: A few scattered rhonchi. ABDOMEN: Soft. NERVOUS SYSTEM: Nonfocal. LABORATORY DATA: Hemoglobin 10. The rest of the labs are noted. ASSESSMENT: 1. Atrial fibrillation with fast ventricular rate. 2. Left atrial thrombus, moderate mitral regurgitation. 3. Elevated AST, ALT. 4. Abdominal pain, possible acute gastroesophageal reflux disease. 5. History of coronary artery disease. 6. Diabetes mellitus, type 2. 7. Multiple medical issues. RECOMMENDATIONS: Recommend to continue current management and continue with symptomatic treatment. Continue with anticoagulation and as well as the rest of medications, Cardizem. Repeat labs. Guarded prognosis. Further recommendations to follow. MMODL / IJN: [id number] /
--- NOTE | 2023-01-19 15:03 | CDI ---
Documentation Clarification Form Date: 01/19/2023 2:54:00 PM From: Shantell Carrera RN CCDS Phone: [phone] Admit Date: 01/17/2023 2:59:00 PM Patient Name: Charu Quezada Visit Number: [id number] Discharge Date: ATTENTION: The Clinical Documentation Specialists (CDI) and [facility] Coding Staff appreciate your assistance in clarifying documentation. Please respond to the clarification below the line at the bottom and electronically sign. The CDI & [facility] Coding staff will review the response and follow-up if needed. Please note: Queries are made part of the Legal Health Record. If you have any questions, please contact the author of this message via ITS. Dr. Jayson Cobos Your patient has the documented diagnosis of unspecified CHF 01/17, H&P. Additional information regarding the type, acuity of CHF is requested. History/Risk Factors: 77-year-old female presents to ED with palpitations. Medical history: Atrial Fibrillation, CHF and CAD. H&P, 01/17. Clinical Indicators: VS/Pulse OX: B/P 110/70; HR 134; RR 20 Temp 98.1 F Oral; SpO2 100% room air BNP, 01/17: 3830 Transesophageal Echocardiogram Results, 01/17: EF 40% Normally functioning bio prosthetic valve in aortic position. Moderate mitral regurgitation. Diffuse global hypo kinesis with LV systolic dysfunction. Chest X Ray: 01/17 No acute pulmonary process. Treatment: 01/18 Toprol Xl 100MG PO BID; 01/18 Maxzide -25 0.5 PO Daily. In your professional opinion, can you please clarify the acuity and type of CHF if known? [ ] Chronic Systolic Heart Failure (reduced EF) [ ] Other, please specify [ ] Unable to determine (Template Last Revised: November 2020) Chronic Systolic Heart Failure (reduced EF) MTDD
[2023-01-19 16:39] LABS: Glucose,Whole Blood 129 mg/dL (70-110)
[2023-01-19 20:03] LABS: Glucose,Whole Blood 137 mg/dL (70-110)
[2023-01-19] MEDS: RIVAROXABAN 20 MG TAB PO SCH (20:47)
[2023-01-19] MEDS: ATORVASTATIN 40 MG TAB PO SCH (20:47)
[2023-01-20 06:06] LABS: Glucose,Whole Blood 149 mg/dL (70-110)
[2023-01-20] MEDS: metFORMIN 850 MG TAB PO SCH ×2 (06:14→17:52)
--- NOTE | 2023-01-20 08:11 | XR ---
EXAMINATION TYPE: XR chest 1V portable DATE OF EXAM: 01/20/2023 HISTORY: Shortness of breath. COMPARISON: 01/17/2023 TECHNIQUE: Single view of the chest is submitted. FINDINGS: Demonstrated are scattered senescent parenchymal change. Small right basilar pleural effusion. Hyperinflation compatible with COPD. The heart is stable. Hilar and mediastinal structures are within normal limits. Degenerative changes are seen of the dorsal spine. IMPRESSION: 1. Stable chest
[2023-01-20 08:29] LABS: Basophils % (A) 0 %; Eosinophils # (A) 0.2 k/uL (0-0.7); Eosinophils % (A) 3 %; HCT 29.3 % (34.0-46.0); HGB 9.6 gm/dL (11.4-16.0); Lymphocytes # (A) 1.1 k/uL (1.0-4.8); Lymphocytes % (A) 22 %; MCHC 32.7 g/dL (31.0-37.0); Mean Platelet Volume 7.7; Monocytes # (A) 0.4 k/uL (0-1.0); Monocytes % (A) 7 %; Neutrophils # (A) 3.2 k/uL (1.3-7.7); Neutrophils % (A) 66 %; Platelet Count 197 k/uL (150-450); RBC 3.08 m/uL (3.80-5.40); RDW 14.2 % (11.5-15.5); WBC 4.9 k/uL (3.8-10.6)
[2023-01-20 08:49] LABS: Calcium 8.6 mg/dL (8.4-10.2); Potassium 4.7 mmol/L (3.5-5.1)
[2023-01-20] MEDS: ALPRAZolam 0.25 MG TAB PO SCH ×2 (09:46→21:27)
[2023-01-20] MEDS: METOPROLOL SUCCINATE (ER) 100 MG TAB.ER.24H PO SCH ×2 (09:50→21:29)
[2023-01-20] MEDS: CALCIUM CARB-VIT D 500 MG-5 MCG TAB PO SCH (09:50)
[2023-01-20] MEDS: CHOLECALCIFEROL 25 MCG (1000 IU) TABLET PO SCH (09:50)
[2023-01-20] MEDS: DILTIAZEM ORAL 30 MG TAB PO SCH ×3 (09:50→21:31)
[2023-01-20] MEDS: LINAGLIPTIN 5 MG TABLET PO SCH (09:50)
[2023-01-20] MEDS: TRIAMTERENE-HCTZ 37.5-25MG 1 EACH TAB PO SCH (09:50)
[2023-01-20] MEDS: PANTOPRAZOLE 40 MG/10 ML VIAL IVP SCH ×2 (09:50→21:30)
[2023-01-20] MEDS: PIOGLITAZONE 30 MG TAB PO SCH (09:51)
--- NOTE | 2023-01-20 10:14 | P.PN ---
Subjective Progress Note Date: 01/20/23 HISTORY OF PRESENT ILLNESS: This is a 77-year-old female with a past medical history significant for prosthetic aortic valve replacement in 2018, normal coronary arteries per cardiac catheterization in 2017, atrial fibrillation, ANGEL clot found on HARJINDER in 2020, and atrial flutter. Patient follows in the office with Dr. Bond. We have been asked to see the patient in consultation for atrial flutter. Patient examined at the bedside. Patient was recently seen in the office on 01/10/2023 and was found to be in atrial flutter with RVR. The patient's dose of metoprolol was increased. The patient states over the past couple days she has been feeling worse palpitations, increased fatigue, and increased shortness of breath with activity. The patient presented to the ER and was found to be in atrial flutter with RVR. Patient's blood pressures were borderline on admission. She was started on IV amiodarone. Patient's blood pressures have improved this morning with a systolic around 110. Telemetry currently reveals atrial flutter with a heart rate around 110. * EKG reveals atrial flutter with RVR * Chest xray negative for acute process * Laboratory data: WBC 6.3. Hemoglobin 10.3. Platelet count 204. Sodium 138. Potassium 4.6. BUN 24. Creatinine 0.83. Troponin negative 3 * Current home cardiac medications include Lipitor 40 mg at night, metoprolol succinate 100 mg twice a day, Xarelto 20 mg at night, and Triamterene-HCTZ 37.5-25mg daily * Most recent echocardiogram obtained in 01/03/2023 reveals ejection fraction 52%, prosthetic aortic valve, [id number] TR, moderate MR * Cardiac catheterization history: October 2017 revealing normal coronary arteries 01/20/2023 Patient examined this morning at the bedside. Patient appears somewhat anxious this morning. She underwent HARJINDER yesterday revealing echodense lesion within the left atrial appendage consistent with possible left apical appendage thrombus. Cardioversion was cancelled. Patient remains in atrial flutter this morning with heart rates ranging between 100-130. Blood pressure 104/55. Patient denies chest pain or pressure. Denies SOB. Denies dizziness or palpitations. PHYSICAL EXAM: VITAL SIGNS: Reviewed. GENERAL: Well-developed in no acute distress. HEENT: Head is normocephalic. Pupils are equal, round. Sclerae anicteric. Mucous membranes of the mouth are moist. Neck supple. No JVD or thyromegaly LUNGS: Respirations even and unlabored. Lungs essentially clear to auscultation bilaterally. HEART: Tachycardic. Regular rate and rhythm. S1 and S2 heard. ABDOMEN: Soft. Nondistended. Nontender. EXTREMITIES: Normal range of motion. No clubbing or cyanosis. Peripheral pulses intact. No lower extremity edema NEUROLOGIC: Awake and alert. Oriented x 3. ASSESSMENT: Palpitations Shortness of breath Persistent typical atrial flutter with RVR Status post HARJINDER revealing possible left apical appendage thrombus Borderline hypotension History of prosthetic aortic valve, 2017 Normal coronary arteries, per angiogram in 2017 History of left atrial appendage clot per HARJINDER, 2020 Hypertension Hyperlipidemia Diabetes Hypomagnesemia PLAN: Continue current cardiac medications Cardizem added yesterday per Dr. Combs Continue metoprolol Add IV digoxin today and begin oral digoxin tomorrow Cardioversion cancelled secondary to thrombus found on HARJINDER yesterday Further recommendations pending patient course Nurse practitioner note has been reviewed by physician. Signing provider agrees with the documented findings, assessment, and plan of care. Objective - Vital Signs Vital signs: Vital Signs Temp 97.9 F 01/20/23 04:00 Pulse 130 H 01/20/23 09:45 Resp 16 01/20/23 09:45 BP 104/55 01/20/23 09:45 Pulse Ox 99 01/20/23 09:45 FiO2 Intake & Output 01/19/23 01/20/23 01/20/23 18:59 06:59 18:59 Intake Total 200 180 358 Output Total 250 Balance 200 -70 358 Intake: IV 200 Oral 0 180 358 Output: Urine 250 Other: Voiding Method Toilet Toilet # Voids 1 2 # Bowel Movements 1 - Labs CBC & Chem 7: 01/20/23 07:03 01/20/23 07:03 Labs: Abnormal Lab Results - Last 24 Hours (Table) 01/19/23 01/19/23 01/19/23 Range/Units 11:32 16:34 20:01 RBC (3.80-5.40) m/uL Hgb (11.4-16.0) gm/dL Hct (34.0-46.0) % Carbon Dioxide (22-30) mmol/L BUN (7-17) mg/dL Glucose (74-99) mg/dL POC Glucose (mg/dL) 192 H 129 H 137 H (70-110) mg/dL Magnesium (1.6-2.3) mg/dL 01/20/23 01/20/23 01/20/23 Range/Units 06:05 07:03 07:03 RBC 3.08 L (3.80-5.40) m/uL Hgb 9.6 L (11.4-16.0) gm/dL Hct 29.3 L (34.0-46.0) % Carbon Dioxide 31 H (22-30) mmol/L BUN 20 H (7-17) mg/dL Glucose 158 H (74-99) mg/dL POC Glucose (mg/dL) 149 H (70-110) mg/dL Magnesium (1.6-2.3) mg/dL 01/20/23 Range/Units 07:03 RBC (3.80-5.40) m/uL Hgb (11.4-16.0) gm/dL Hct (34.0-46.0) % Carbon Dioxide (22-30) mmol/L BUN (7-17) mg/dL Glucose (74-99) mg/dL POC Glucose (mg/dL) (70-110) mg/dL Magnesium 1.5 L (1.6-2.3) mg/dL
[2023-01-20 11:29] LABS: Glucose,Whole Blood 138 mg/dL (70-110)
[2023-01-20] MEDS ORDERED: DIGOXIN 250 MCG/ML 2 ML AMP IVP ONE ×2 (11:30→17:30)
[2023-01-20] MEDS: MAGNESIUM SULFATE-D5W PMX 1 GM in DEXTROSE/WATER 1 100ML.BAG IVPB SCH ×2 (12:31→14:46)
--- NOTE | 2023-01-20 13:40 | PN ---
PROGRESS NOTE DATE OF SERVICE: 01/20/2023 SUBJECTIVE: This is a 77-year-old woman who was admitted with atrial flutter with fast ventricular rate, still has heart rate around 130. The patient is on multiple medications. No chest pain, no palpitation. OBJECTIVE: VITAL SIGNS: Pulse is 133 and regular, blood pressure 130/58, respirations 16. CHEST: Scattered rhonchi, no crackles. ABDOMEN: Soft. NERVOUS SYSTEM: No focal deficits. LABORATORY DATA: Noted, magnesium 1.5. ASSESSMENT: 1. Atrial flutter with fast ventricular rate. 2. Left atrial thrombus with moderate mitral regurgitation. 3. Elevated AST, ALT. 4. Abdominal pain with possible acute GERD. 5. History of coronary artery disease. 6. Diabetes mellitus, type 2. 7. Multiple medical issues. RECOMMENDATIONS: Recommended to continue current medications, continue symptomatic treatment. Otherwise, closely follow with Cardiology. Guarded prognosis. Further recommendations to follow. MMODL / IJN: [id number] /
[2023-01-20 16:21] LABS: Glucose,Whole Blood 170 mg/dL (70-110)
[2023-01-20 20:27] LABS: Glucose,Whole Blood 146 mg/dL (70-110)
[2023-01-20] MEDS: ATORVASTATIN 40 MG TAB PO SCH (21:27)
[2023-01-20] MEDS: RIVAROXABAN 20 MG TAB PO SCH (21:31)
[2023-01-21] MEDS: metFORMIN 850 MG TAB PO SCH (06:38)
[2023-01-21 06:55] LABS: Glucose,Whole Blood 163 mg/dL (70-110)
[2023-01-21 08:59] VITALS: RESP 16
[2023-01-21] MEDS ORDERED: DIGOXIN 125 MCG TAB PO SCH (09:00)
[2023-01-21] MEDS ORDERED: MAGNESIUM OXIDE 400 MG TAB PO SCH (09:00)
[2023-01-21] MEDS: DILTIAZEM ORAL 30 MG TAB PO SCH (09:08)
[2023-01-21] MEDS: LINAGLIPTIN 5 MG TABLET PO SCH (09:08)
[2023-01-21] MEDS: TRIAMTERENE-HCTZ 37.5-25MG 1 EACH TAB PO SCH (09:08)
[2023-01-21] MEDS: CALCIUM CARB-VIT D 500 MG-5 MCG TAB PO SCH (09:08)
[2023-01-21] MEDS: PIOGLITAZONE 30 MG TAB PO SCH (09:08)
[2023-01-21] MEDS: ALPRAZolam 0.25 MG TAB PO SCH (09:08)
[2023-01-21] MEDS: CHOLECALCIFEROL 25 MCG (1000 IU) TABLET PO SCH (09:08)
[2023-01-21] MEDS: METOPROLOL SUCCINATE (ER) 100 MG TAB.ER.24H PO SCH (09:09)
[2023-01-21] MEDS: PANTOPRAZOLE 40 MG/10 ML VIAL IVP SCH (09:09)
[2023-01-21 09:55] LABS: HCT 31.8 % (34.0-46.0); HGB 10.2 gm/dL (11.4-16.0); MCH 30.8 pg (25.0-35.0); MCV 96.1 fL (80.0-100.0); Mean Platelet Volume 7.7; Platelet Count 203 k/uL (150-450); RDW 13.9 % (11.5-15.5)
[2023-01-21 10:12] LABS: Calcium 9.1 mg/dL (8.4-10.2); Potassium 4.7 mmol/L (3.5-5.1)
[2023-01-21] MEDS ORDERED: Magnesium Replacement Protocol 1 EACH MISC MISCELLANE PRN (10:35)
[2023-01-21 11:18] VITALS: BP 125/78; PULSE 79; TEMP 97.7
[2023-01-21] MEDS: MAGNESIUM SULFATE-D5W PMX 1 GM in DEXTROSE/WATER 1 100ML.BAG IVPB SCH ×2 (11:23→13:40)
[2023-01-21 12:02] LABS: Glucose,Whole Blood 153 mg/dL (70-110)
--- NOTE | 2023-01-21 12:18 | P.PN ---
Subjective Progress Note Date: 01/21/23 HISTORY OF PRESENT ILLNESS: This is a 77-year-old female with a past medical history significant for prosthetic aortic valve replacement in 2018, normal coronary arteries per cardiac catheterization in 2017, atrial fibrillation, ANGEL clot found on HARJINDER in 2020, and atrial flutter. Patient follows in the office with Dr. Bond. We have been asked to see the patient in consultation for atrial flutter. Patient examined at the bedside. Patient was recently seen in the office on 01/10/2023 and was found to be in atrial flutter with RVR. The patient's dose of metoprolol was increased. The patient states over the past couple days she has been feeling worse palpitations, increased fatigue, and increased shortness of breath with activity. The patient presented to the ER and was found to be in atrial flutter with RVR. Patient's blood pressures were borderline on admission. She was started on IV amiodarone. Patient's blood pressures have improved this morning with a systolic around 110. Telemetry currently reveals atrial flutter with a heart rate around 110. * EKG reveals atrial flutter with RVR * Chest xray negative for acute process * Laboratory data: WBC 6.3. Hemoglobin 10.3. Platelet count 204. Sodium 138. Potassium 4.6. BUN 24. Creatinine 0.83. Troponin negative 3 * Current home cardiac medications include Lipitor 40 mg at night, metoprolol succinate 100 mg twice a day, Xarelto 20 mg at night, and Triamterene-HCTZ 37.5-25mg daily * Most recent echocardiogram obtained in 01/03/2023 reveals ejection fraction 52%, prosthetic aortic valve, [id number] TR, moderate MR * Cardiac catheterization history: October 2017 revealing normal coronary arteries 01/20/2023 Patient examined this morning at the bedside. Patient appears somewhat anxious this morning. She underwent HARJINDER yesterday revealing echodense lesion within the left atrial appendage consistent with possible left apical appendage thrombus. Cardioversion was cancelled. Patient remains in atrial flutter this morning with heart rates ranging between 100-130. Blood pressure 104/55. Patient denies chest pain or pressure. Denies SOB. Denies dizziness or palpitations. 01/21/2023 Patient examined this morning at the bedside. Patient denies chest pain or pressure. She denies shortness of breath. Patient remains in atrial flutter with controlled ventricular rate in the 80s. Blood pressure is stable. PHYSICAL EXAM: VITAL SIGNS: Reviewed. GENERAL: Well-developed in no acute distress. HEENT: Head is normocephalic. Pupils are equal, round. Sclerae anicteric. Mucous membranes of the mouth are moist. Neck supple. No JVD or thyromegaly LUNGS: Respirations even and unlabored. Lungs essentially clear to auscultation bilaterally. HEART: Regular rate and rhythm. S1 and S2 heard. ABDOMEN: Soft. Nondistended. Nontender. EXTREMITIES: Normal range of motion. No clubbing or cyanosis. Peripheral pulses intact. No lower extremity edema NEUROLOGIC: Awake and alert. Oriented x 3. ASSESSMENT: Palpitations Shortness of breath Persistent typical atrial flutter with RVR Status post HARJINDER revealing possible left apical appendage thrombus Borderline hypotension History of prosthetic aortic valve, 2017 Normal coronary arteries, per angiogram in 2017 History of left atrial appendage clot per HARJINDER, 2020 Hypertension Hyperlipidemia Diabetes Hypomagnesemia PLAN: Continue current cardiac medications Patient is stable for discharge home today from a cardiac standpoint Nurse practitioner note has been reviewed by physician. Signing provider agrees with the documented findings, assessment, and plan of care. Objective - Vital Signs Vital signs: Vital Signs Temp 97.7 F 01/21/23 11:17 Pulse 79 01/21/23 11:17 Resp 16 01/21/23 11:17 BP 125/78 01/21/23 11:17 Pulse Ox 95 01/21/23 11:17 FiO2 Intake & Output 01/20/23 01/21/23 01/21/23 18:59 06:59 18:59 Intake Total 794 220 250 Balance 794 220 250 Intake: IV 200 220 10 Invasive Line 2 10 Magnesium Sulfate-D5w Pmx 200 220 1 gm In Dextrose/Water 1 100ml.bag @ 100 mls/hr IVPB Q1H JENNIFER Rx#: [id number] Oral 594 240 Other: Voiding Method Toilet Toilet # Voids 4 - Labs CBC & Chem 7: 01/21/23 09:41 01/21/23 09:41 Labs: Abnormal Lab Results - Last 24 Hours (Table) 01/20/23 01/20/23 01/21/23 Range/Units 16:20 20:26 06:54 RBC (3.80-5.40) m/uL Hgb (11.4-16.0) gm/dL Hct (34.0-46.0) % Carbon Dioxide (22-30) mmol/L BUN (7-17) mg/dL Glucose (74-99) mg/dL POC Glucose (mg/dL) 170 H 146 H 163 H (70-110) mg/dL 01/21/23 01/21/23 01/21/23 Range/Units 09:41 09:41 12:01 RBC 3.30 L (3.80-5.40) m/uL Hgb 10.2 L (11.4-16.0) gm/dL Hct 31.8 L (34.0-46.0) % Carbon Dioxide 31 H (22-30) mmol/L BUN 18 H (7-17) mg/dL Glucose 113 H (74-99) mg/dL POC Glucose (mg/dL) 153 H (70-110) mg/dL
--- NOTE | 2023-01-22 19:03 | P.DS ---
Providers Date of admission: 01/17/23 14:59 Expected date of discharge: 01/21/23 Attending physician: Jayson Cobos Consults: 01/17/23 14:54 Consult Physician Urgent Consulting Provider: [facility] Consult Reason/Comments: afib with rvr Do you want consulting provider notified?: Yes Primary care physician: Will Soto MD Hospital Course: Final diagnosis Atrial flutter with fast ventricular rate Left atrial thrombus with moderate mitral regurgitation Elevated AST, ALT Abdominal pain with possible acute GERD History of coronary artery disease diabetes mellitus, type II Hypomagnesemia Chronic systolic heart failure with reduced EF Discharge disposition Patient is being discharged in a stable condition with guarded prognosis to home. Patient will follow-up with Dr. Soto in the outpatient setting upon discharge. Patient is to follow-up with cardiology outpatient as scheduled. Total time taken is greater than 35 minutes. Hospital course This is a 77-year-old female who was recently admitted with fast ventricular rate and being closely monitored. Cardiology is evaluating the patient making adjustments to medications and recommend close outpatient follow-up. Underwent HARJINDER with findings of possible left atrial appendage. Patient had changes in medications and will continue on current regimen as mentioned below. Recommend close outpatient follow-up with cardiology. Please refer to cardiology notes for further HPI. Patient also with hypomagnesemia and will start supplementation recommend follow-up labs in following up with primary care provider this week. Currently no reports of chest pain, shortness of breath, or palpitations. Patient is afebrile. No reports of nausea or vomiting and patient is tolerating diet. Patient will be discharged home today. Guarded prognosis Physical exam: Gen: This is a 77-year-old female who is awake, alert and oriented 3, thin built, elderly appearing HEENT: Head is atraumatic, normocephalic. Pupils equal, round. Sclerae is anicteric. NECK: Supple. No JVD. No lymphadenopathy. No thyromegaly. LUNGS: Diminished breath sounds bilaterally with some scattered rhonchi noted. No intercostal retractions. HEART: S1, S2 are muffled ABDOMEN: Soft. Bowel sounds are present. No masses. No tenderness. EXTREMITIES: No pedal edema. No calf tenderness. NEUROLOGICAL: Patient is awake, alert and oriented x3. Cranial nerves 2 through 12 are grossly intact. Please refer to medication reconciliation sheet for a list of medications. The impression and plan of care has been dictated by Sindhu Dominguez, Nurse Practitioner as directed. Dr. Papito MD I have performed a history and examination and MDM of this patient, discussed the same with the dictator, and agree with the dictator's assessment and plan as written ,documented as a scribe. Based on total visit time, I have performed more than 50% of the visit. Patient Condition at Discharge: Fair Plan - Discharge Summary Discharge Rx Participant: No New Discharge Prescriptions: New Digoxin [Lanoxin] 125 mcg PO DAILY #30 tab Diltiazem Oral [Cardizem*] 30 mg PO TID #90 tab Magnesium Oxide [Mag-Ox] 200 mg PO DAILY #30 tab Continue Omeprazole [PriLOSEC] 20 mg PO DAILY Atorvastatin [Lipitor] 40 mg PO HS sitaGLIPtin [Januvia] 100 mg PO DAILY Pioglitazone [Actos] 30 mg PO DAILY ALPRAZolam [Xanax] 0.125 mg PO BID Biotin [Biotin Disolve] 5,000 mcg PO DAILY Calcium Citrate/Vitamin D3 [Citracal + D Maximum Caplet] 1 tab PO DAILY Carboxymethylcellulose Sodium [Refresh Tears] 1 drop BOTH EYES BID Chromium Picolinate 200 mcg PO DAILY metFORMIN HCL [Glucophage] 850 mg PO BID Rivaroxaban [Xarelto] 20 mg PO HS Turmeric Root Extract [Turmeric Curcumin] 500 mg PO DAILY Metoprolol Succinate [Toprol XL] 100 mg PO BID Ubidecarenone [Co Q-10] 100 mg PO DAILY Cranberry 4200mg 1 cap PO DAILY Cholecalciferol [Vitamin D3 (25 Mcg = 1000 Iu)] 25 mcg PO DAILY Diphenoxylate HCl/Atropine [Lomotil 2.5-0.025 mg Tablet] 2 tab PO QID PRN PRN Reason: Diarrhea Triamterene-Hctz 37.5-25Mg [Maxzide 37.5-25] 0.5 tab PO DAILY Discharge Medication List Atorvastatin [Lipitor] 40 mg PO HS 01/24/17 [History] Omeprazole [PriLOSEC] 20 mg PO DAILY 01/24/17 [History] sitaGLIPtin [Januvia] 100 mg PO DAILY 01/24/17 [History] Pioglitazone [Actos] 30 mg PO DAILY 11/21/20 [History] ALPRAZolam [Xanax] 0.125 mg PO BID 01/30/21 [History] Metoprolol Succinate [Toprol XL] 100 mg PO BID 01/30/21 [History] Ubidecarenone [Co Q-10] 100 mg PO DAILY 01/30/21 [History] Biotin [Biotin Disolve] 5,000 mcg PO DAILY 01/17/23 [History] Calcium Citrate/Vitamin D3 [Citracal + D Maximum Caplet] 1 tab PO DAILY 01/17/23 [History] Carboxymethylcellulose Sodium [Refresh Tears] 1 drop BOTH EYES BID 01/17/23 [History] Cholecalciferol [Vitamin D3 (25 Mcg = 1000 Iu)] 25 mcg PO DAILY 01/17/23 [History] Chromium Picolinate 200 mcg PO DAILY 01/17/23 [History] Cranberry 4200mg 1 cap PO DAILY 01/17/23 [History] Diphenoxylate HCl/Atropine [Lomotil 2.5-0.025 mg Tablet] 2 tab PO QID PRN 01/17/23 [History] Rivaroxaban [Xarelto] 20 mg PO HS 01/17/23 [History] Triamterene-Hctz 37.5-25Mg [Maxzide 37.5-25] 0.5 tab PO DAILY 01/17/23 [History] Turmeric Root Extract [Turmeric Curcumin] 500 mg PO DAILY 01/17/23 [History] metFORMIN HCL [Glucophage] 850 mg PO BID 01/17/23 [History] Digoxin [Lanoxin] 125 mcg PO DAILY #30 tab 01/21/23 [Rx] Diltiazem Oral [Cardizem*] 30 mg PO TID #90 tab 01/21/23 [Rx] Magnesium Oxide [Mag-Ox] 200 mg PO DAILY #30 tab 01/21/23 [Rx] Follow up Appointment(s)/Referral(s): Sandra Bond MD [STAFF PHYSICIAN] - 01/27/23 2:00 pm Will Soto MD [Primary Care Provider] - 1-2 days (Call on tuesday to make apt. ) Ambulatory/Diagnostic Orders: Magnesium [LAB.AMB] Time Frame: 3 Days, Location: None Selected Patient Instructions/Handouts: Atrial Flutter (ED), A-fib (Atrial Fibrillation) (DC), Heart Palpitations (ED), Hypomagnesemia (ED), Shortness of Breath (ED) Activity/Diet/Wound Care/Special Instructions: activity Limited until follow-up Follow-up with primary care provider on discharge Follow-up cardiology outpatient Continue taking medications as prescribed Discharge Disposition: HOME SELF-CARE
== END 2023-01-21 15:28 | disposition home or self-care (01) | DRG 309 ==
LOC: EC 10:59 → 3SCARD 14:59
PROVIDERS: ADMIT Hospitalist; ATTEND Hospitalist
PROC: B24BZZ4 Ultrasonography of Heart with Aorta, Transesophageal (ICD-10-PCS; principal; 2023-01-19 10:00)
DX: I48.3 Typical atrial flutter (principal); I50.22 Chronic systolic (congestive) heart failure; E83.42 Hypomagnesemia; I51.3 Intracardiac thrombosis, not elsewhere classified; R74.01 Elevation of levels of liver transaminase levels; I48.91 Unspecified atrial fibrillation; I11.0 Hypertensive heart disease with heart failure; K21.9 Gastro-esophageal reflux disease without esophagitis; I25.10 Atherosclerotic heart disease of native coronary artery without angina pectoris; E11.9 Type 2 diabetes mellitus without complications; F41.9 Anxiety disorder, unspecified; E78.5 Hyperlipidemia, unspecified; M19.90 Unspecified osteoarthritis, unspecified site; K44.9 Diaphragmatic hernia without obstruction or gangrene; K42.9 Umbilical hernia without obstruction or gangrene; Z96.641 Presence of right artificial hip joint; Z79.01 Long term (current) use of anticoagulants; Z95.2 Presence of prosthetic heart valve; Z79.899 Other long term (current) drug therapy; Z79.84 Long term (current) use of oral hypoglycemic drugs; Z28.310 Unvaccinated for COVID-19; Z88.0 Allergy status to penicillin; Z88.1 Allergy status to other antibiotic agents; Z87.440 Personal history of urinary (tract) infections
CPT/HCPCS: 36415; 71045; 71046; 76705; 80048; 80053; 81001; 83735; 83880; 84443; 84484; 85025; 85027; 85610; 85730; 93005; 93312; 93320; 93325; 94760; 96365; 96366; 96367; 96368; 96375; 99291

== ENCOUNTER → 2023-01-24 | Outpatient (CLI) | payer MEDICARE | END | disposition home or self-care (01) | LOC: LABWHC1 12:28 | PROVIDERS: ATTEND Registered Nurse | DX: E83.42 Hypomagnesemia (principal) | CPT/HCPCS: 36415; 83735 ==

== ENCOUNTER 2023-03-15 06:00 | Day surgery (SDC) | payer MEDICARE ==
[2023-03-15 06:46] VITALS: TEMP 97.8
[2023-03-15] MEDS ORDERED: LACTATED RINGERS 1,000 ML IV ONE (06:59)
[2023-03-15 07:06] LABS: Glucose,Whole Blood 217 mg/dL (70-110)
[2023-03-15 07:42] LABS: Calcium 8.5 mg/dL (8.4-10.2)
[2023-03-15] MEDS ORDERED: LIDOCAINE 2% INJ 20 MG/ML (2 ML VIAL) ONE (07:51)
[2023-03-15] MEDS ORDERED: PROPOFOL 10 MG/ML 20 ML VIAL IV ONE (07:51)
[2023-03-15] MEDS ORDERED: SODIUM CHLORIDE 0.9% 1,000 ML IV SCH (08:15)
--- NOTE | 2023-03-15 08:19 | P.PCN ---
Date of Procedure: 03/15/23 Description of Procedure: Indication: Atrial fibrillation Procedure Description: After explaining the procedure to the patient, it's risk and complications, blood pressure, heart rate and O2 saturation were monitored. The throat was sprayed with Cetacaine. Patient received sedation per anesthesia department. The probe was introduced into the esophagus without difficulty. Images were obtained. Following that, the probe was removed. There was no immediate complication. Findings: Left atrial size is upper size of normal, left atrial appendage is normal. The ventricle size revealed mild global hypokinesis. Ejection fraction is 45-50%. Mitral annulus calcification was noted. A bioprosthetic aortic valve was noted. Tricuspid valve is normal. The intra-atrial septum is highly mobile. No pericardial effusion was noted. Contrast bubble study revealed no shunting across the interatrial septum. Descending thoracic aorta appears to be normal. Doppler: Pulse wave and color Doppler were obtained, and revealed mild mitral with moderate tricuspid regurgitation and no shunting across the intra-atrial septum. Conclusion: 1. Normal appearance of the left atrial appendage 2. The ventricle systolic ejection fraction 45-50% 3. Mild mitral with moderate tricuspid regurgitation 4. Normal appearance of the bioprosthetic aortic valve 5. No shunting across the interatrial septum with highly mobile septum Cardioversion: After obtaining HARJINDER and sedated state by the anesthesia department, a synchronized biphasic cardioversion using 150 J was performed with anabaptist of sinus mechanism. There was no immediate complications.
[2023-03-15] MEDS ORDERED: PIOGLITAZONE 30 MG TAB PO SCH (09:00)
[2023-03-15] MEDS ORDERED: TRIAMTERENE-HCTZ 37.5-25MG 1 EACH TAB PO SCH (09:00)
[2023-03-15] MEDS ORDERED: MAGNESIUM OXIDE 400 MG TAB PO SCH (09:00)
[2023-03-15] MEDS ORDERED: NON FORMULARY DRUG (Sitagliptin 100 MG Tab) PO SCH (09:00)
[2023-03-15] MEDS ORDERED: metFORMIN 850 MG TAB PO SCH (09:00)
[2023-03-15 09:13] VITALS: BP 124/68; PULSE 68; RESP 18
[2023-03-15] MEDS ORDERED: ATORVASTATIN 40 MG TAB PO SCH (21:00)
[2023-03-15] MEDS ORDERED: METOPROLOL SUCCINATE (ER) 25 MG TAB.ER.24H PO SCH (21:00)
[2023-03-15] MEDS ORDERED: RIVAROXABAN 20 MG TAB PO SCH (21:00)
[2023-03-16] MEDS ORDERED: PANTOPRAZOLE 40 MG TABLET PO SCH (07:30)
[2023-03-16] MEDS ORDERED: DIGOXIN 125 MCG TAB PO SCH (09:00)
== END 2023-03-15 10:02 | disposition home or self-care (01) ==
LOC: OR 06:00
PROVIDERS: ATTEND Internal Medicine Interventional Cardiology
DX: I48.91 Unspecified atrial fibrillation (principal); I48.3 Typical atrial flutter; I08.3 Combined rheumatic disorders of mitral, aortic and tricuspid valves; I25.10 Atherosclerotic heart disease of native coronary artery without angina pectoris; Z95.2 Presence of prosthetic heart valve; E78.2 Mixed hyperlipidemia; I10 Essential (primary) hypertension; E11.9 Type 2 diabetes mellitus without complications; K21.9 Gastro-esophageal reflux disease without esophagitis; F10.20 Alcohol dependence, uncomplicated; M19.90 Unspecified osteoarthritis, unspecified site; Z79.01 Long term (current) use of anticoagulants; Z79.84 Long term (current) use of oral hypoglycemic drugs; Z79.899 Other long term (current) drug therapy; Z88.0 Allergy status to penicillin; Z88.8 Allergy status to other drugs, medicaments and biological substances; Z87.891 Personal history of nicotine dependence
CPT/HCPCS: 93312; 93320; 93005; 93325; 92960; 80048; J2704; J2001

== ENCOUNTER 2023-09-30 03:07 | Emergency (ER) | payer MEDICARE ==
[2023-09-30 04:05] LABS: Basophils % (A) 1 %; Eosinophils # (A) 0.2 k/uL (0-0.7); Eosinophils % (A) 3 %; HCT 23.8 % (34.0-46.0); HGB 7.1 gm/dL (11.4-16.0); Hypochromasia Marked; Lymphocytes # (A) 0.9 k/uL (1.0-4.8); Lymphocytes % (A) 14 %; MCH 26.6 pg (25.0-35.0); MCHC 29.9 g/dL (31.0-37.0); Mean Platelet Volume 7.5; Monocytes # (A) 0.4 k/uL (0-1.0); Monocytes % (A) 6 %; Neutrophils # (A) 4.8 k/uL (1.3-7.7); Neutrophils % (A) 76 %; Platelet Count 361 k/uL (150-450); Poikilocytosis Slight; RBC 2.68 m/uL (3.80-5.40); RDW 15.1 % (11.5-15.5); WBC 6.3 k/uL (3.8-10.6)
[2023-09-30 04:25] LABS: ALT 20 U/L (4-34); AST 29 U/L (14-36); African American GFR (CKD) 88 (>60 ml/min/1.73 sqM); Albumin 3.6 g/dL (3.5-5.0); Alkaline Phosphatase 73 U/L (38-126); Anion Gap 11 mmol/L; Blood Urea Nitrogen 23 mg/dL (7-17); Calcium 8.9 mg/dL (8.4-10.2); Carbon Dioxide 23 mmol/L (22-30); Chloride 101 mmol/L (98-107); Glucose 177 mg/dL (74-99); Magnesium 1.9 mg/dL (1.6-2.3); Non-African American GFR(CKD) 77 (>60 ml/min/1.73 sqM); Potassium 4.6 mmol/L (3.5-5.1); Sodium 135 mmol/L (137-145); Total Bilirubin 0.3 mg/dL (0.2-1.3); Total Protein 6.4 g/dL (6.3-8.2)
[2023-09-30 04:29] LABS: INR 1.2 (<1.2); Partial Thromboplastin Time 26.7 sec (22.0-30.0); Prothrombin Time 12.5 sec (10.0-12.5)
--- NOTE | 2023-09-30 05:14 | ED ---
General Adult HPI - General Chief complaint: Recheck/Abnormal Lab/Rx Stated complaint: Needs blood transfusion Time Seen by Provider: 09/30/23 03:30 Source: patient Mode of arrival: wheelchair Limitations: no limitations - History of Present Illness Initial comments: 78-year-old female presents to the emergency department reporting abnormal labs. States that she was called by her primary care doctor at 2:00 in the morning. She did have routine blood work performed this week as she does have an appointment with her primary care next week. States that she received a call in the middle the night to let her know that her hemoglobin was 6.7. She does have a history of anemia. States that she takes iron daily. Reports to chronically dark stools however has not noted a change. States that she has required blood transfusions before in the past. She was found to be occult positive. States that she has had several EGDs, colonoscopies and pill endoscopies. They have not been able to find the source of her bleeding. She continues to take ant icoagulation. She received a watchmen and today was supposed to be the first day that she wasn't going to have to take her anticoagulation. She reports her last blood work was done in mid-July. States her hemoglobin was 12.7. Does feel as if she has had some increased shortness of breath with exertion and easy fatigued. No hematemesis. No hematuria. No other alleviating, precipitating or modifying factors - Related Data Home Medications Medication Instructions Recorded Confirmed Atorvastatin [Lipitor] 40 mg PO HS 01/24/17 03/10/23 Omeprazole [PriLOSEC] 20 mg PO DAILY 01/24/17 03/10/23 sitaGLIPtin [Januvia] 100 mg PO DAILY 01/24/17 03/10/23 Pioglitazone [Actos] 30 mg PO DAILY 11/21/20 03/10/23 ALPRAZolam [Xanax] 0.125 mg PO BID PRN 01/30/21 03/10/23 Metoprolol Succinate [Toprol XL] 75 mg PO BID 01/30/21 03/10/23 Ubidecarenone [Co Q-10] 100 mg PO DAILY 01/30/21 03/10/23 Calcium Citrate/Vitamin D3 1 tab PO DAILY 01/17/23 03/10/23 [Citracal + D Maximum Caplet] Carboxymethylcellulose Sodium 1 drop BOTH EYES BID 01/17/23 03/10/23 [Refresh Tears] Cholecalciferol [Vitamin D3 (25 25 mcg PO DAILY 01/17/23 03/10/23 Mcg = 1000 Iu)] Chromium Picolinate 200 mcg PO DAILY 01/17/23 03/10/23 Cranberry 4200mg 1 cap PO DAILY 01/17/23 03/10/23 Diphenoxylate HCl/Atropine 2 tab PO QID PRN 01/17/23 03/10/23 [Lomotil 2.5-0.025 mg Tablet] Rivaroxaban [Xarelto] 20 mg PO HS 01/17/23 03/10/23 Triamterene-Hctz 37.5-25Mg 1 tab PO DAILY 01/17/23 03/10/23 [Maxzide 37.5-25] metFORMIN HCL [Glucophage] 850 mg PO BID 01/17/23 03/10/23 Magnesium Oxide [Mag-Ox] 400 mg PO DAILY 03/10/23 03/10/23 Unk Stool Softner 1 tab PO DIRECTED PRN 03/10/23 03/10/23 Previous Rx's Medication Instructions Recorded Digoxin [Lanoxin] 125 mcg PO DAILY #30 tab 01/21/23 Allergies Allergy/AdvReac Type Severity Reaction Status Date / Time amoxicillin [From Augmentin] Allergy Rash/Hives Verified 09/30/23 03:19 clavulanic acid Allergy Rash/Hives Verified 09/30/23 03:19 [From Augmentin] Penicillins Allergy Rash/Hives Verified 09/30/23 03:19 Review of Systems ROS Statement: Those systems with pertinent positive or pertinent negative responses have been documented in the HPI. ROS Other: All systems not noted in ROS Statement are negative. Past Medical History Past Medical History: Atrial Fibrillation, Coronary Artery Disease (CAD), Heart Failure, Diabetes Mellitus, GERD/Reflux, Hyperlipidemia, Hypertension, Osteoarthritis (OA), Skin Disorder Additional Past Medical History / Comment(s): heart murmur, born with bicuspid aorta, diarrhea, and sometimes constipation, hx UTIS, "leaky bladder", recent "blood clot in upper part of my heart-was seen in (01/2023) with racing heart and heart failure and e-coli infection in urine", diarrhea, hx hiatal hernia,umbilical hernia, , anemia, low magnesium, reason for HARJINDER, had blot clot in heart after covid vaccine per pt. History of Any Multi-Drug Resistant Organisms: None Reported Past Surgical History: Bladder Surgery, Cardiac Valve Replacement, Heart Catheterization, Hysterectomy, Joint Replacement, Tubal Ligation Additional Past Surgical History / Comment(s): rt hip replacement, HARJINDER, bladder suspension x 2, 2018-aortic valve replacement, watchman device Past Anesthesia/Blood Transfusion Reactions: Previous Problems w/ Anesthesia, Motion Sickness Additional Past Anesthesia/Blood Transfusion Reaction / Comment(s): "long time coming out" Past Psychological History: Anxiety Smoking Status: Never smoker Past Alcohol Use History: None Reported Past Drug Use History: None Reported - Past Family History Father Family Medical History: Cancer Additional Family Medical History / Comment(s): prostate Daughter(s) Family Medical History: Cancer Additional Family Medical History / Comment(s): breast Sister(s) Family Medical History: Cancer Additional Family Medical History / Comment(s): colon General Exam Limitations: no limitations General appearance: alert, in no apparent distress Head exam: Present: atraumatic, normocephalic, normal inspection Eye exam: Present: normal appearance, PERRL, EOMI. Absent: scleral icterus, conjunctival injection, periorbital swelling ENT exam: Present: normal exam, mucous membranes moist Neck exam: Present: normal inspection. Absent: tenderness, meningismus, lymphadenopathy Respiratory exam: Present: normal lung sounds bilaterally. Absent: respiratory distress, wheezes, rales, rhonchi, stridor Cardiovascular Exam: Present: regular rate, normal rhythm, normal heart sounds. Absent: systolic murmur, diastolic murmur, rubs, gallop, clicks GI/Abdominal exam: Present: soft, normal bowel sounds. Absent: distended, tenderness, guarding, rebound, rigid Rectal exam: Present: normal rectal tone, heme (-) stool. Absent: black stool, bloody stool, hemorrhoids, tenderness Extremities exam: Present: normal inspection, full ROM, normal capillary refill. Absent: tenderness, pedal edema, joint swelling, calf tenderness Back exam: Present: normal inspection Neurological exam: Present: alert, oriented X3, CN II-XII intact Psychiatric exam: Present: normal affect, normal mood Skin exam: Present: warm, dry, intact, normal color. Absent: rash Course Vital Signs 09/30/23 09/30/23 09/30/23 03:12 05:45 05:58 Temperature 97.6 F 98.4 F 98.6 F Pulse Rate 109 H 104 H 95 Respiratory 18 19 18 Rate Blood Pressure 142/74 127/70 130/79 O2 Sat by Pulse 98 96 98 Oximetry 09/30/23 09/30/23 09/30/23 06:18 06:42 07:16 Temperature 98.7 F 98.1 F Pulse Rate 95 98 88 Respiratory 17 17 18 Rate Blood Pressure 133/79 133/79 143/82 O2 Sat by Pulse 96 95 98 Oximetry 09/30/23 08:04 Temperature 98.4 F Pulse Rate 87 Respiratory 18 Rate Blood Pressure 142/88 O2 Sat by Pulse 97 Oximetry Medical Decision Making - Medical Decision Making Was pt. sent in by a medical professional or institution (, PA, BIBLE READER, urgent care, hospital, or long-term...) When possible be specific @ -Primary care office Did you speak to anyone other than the patient for history (EMS, parent, family, police, friend...)? What history was obtained from this source @ -No Did you review nursing and triage notes (agree or disagree)? Why? @ -I reviewed and agree with nursing and triage notes Were old charts reviewed (outside hosp., previous admission, EMS record, old EKG, old radiological studies, urgent care reports/EKG's, long-term records)? Report findings @ -No old charts were reviewed Differential Diagnosis (chest pain, altered mental status, abdominal pain women, abdominal pain men, vaginal bleeding, weakness, fever, dyspnea, syncope, headache, dizziness, GI bleed, back pain, seizure, CVA, palpatations, mental health, musculoskeletal)? @ -Differential GI Bleed: Esophageal varices, aortoenteric fistula, Roro-Escalante, gastritis, peptic ulcer disease, diverticulosis, inflammatory bowel disease, hemorrhoids, fissure, colitis, malignancy, Meckels diverticulum, this is not meant to be an all- inclusive list. EKG interpreted by me (3pts min.). @ -Yes and demonstrates sinus tachycardia with a rate of 101. [place] interval 173. QRS 88. QTC of 382. No acute ST segment elevations or depressions. PVCs present. X-rays interpreted by me (1pt min.). @ -None done CT interpreted by me (1pt min.). @ -None done U/S interpreted by me (1pt. min.). @ -None done What testing was considered but not performed or refused? (CT, X-rays, U/S, labs)? Why? @ -None What meds were considered but not given or refused? Why? @ -None Did you discuss the management of the patient with other professionals (professionals i.e. , PA, BIBLE READER, lab, RT, psych nurse, social psychologist, material control specialist, teacher, nuclear officer, caseworker)? Give summary @ -No Was smoking cessation discussed for >3mins.? @ -No Was critical care preformed (if so, how long)? @ -yes, 40 minutes for transfusion of blood products Were there social determinants of health that impacted care today? How? (Homelessness, low income, unemployed, alcoholism, drug addiction, transportation, low edu. Level, literacy, decrease access to med. care, shelter, rehab)? @ -No Was there de-escalation of care discussed even if they declined (Discuss DNR or withdrawal of care, Hospice)? DNR status @ -No What co-morbidities impacted this encounter? (DM, HTN, Smoking, COPD, CAD, Cancer, CVA, ARF, Chemo, Hep., AIDS, mental health diagnosis, sleep apnea, morbid obesity)? @ -Chronic anemia Was patient admitted / discharged? Hospital course, mention meds given and route, prescriptions, significant lab abnormalities, going to OR and other pertinent info. @ -Discharged. Upon arrival patient was placed in room 27. Thorough history and physical exam was performed. IV is established and laboratory studies are obtained. Hemoglobin is 7.1. As patient is reporting to symptoms of anemia I did transfer her for 1 unit of packed blood cells. As patient has been previously hospitalized several times for same complaint with negative occult at this time, I do believe that the patient is stable for discharge home. She is to follow-up with her primary care doctor to have repeat laboratory studies tested and return for any new or worsening symptoms. Patient agreeable to the plan and she was discharged in stable condition Undiagnosed new problem with uncertain prognosis? @ -No Drug Therapy requiring intensive monitoring for toxicity (Heparin, Nitro, Insulin, Cardizem)? @ -Blood products Were any procedures done? @ -No Diagnosis/symptom? @ -Acute exacerbation of chronic symptomatic anemia Acute, or Chronic, or Acute on Chronic? @ -Acute Uncomplicated (without systemic symptoms) or Complicated (systemic symptoms)? @ -Complicated Side effects of treatment? @ -No Exacerbation, Progression, or Severe Exacerbation? @ -No Poses a threat to life or bodily function? How? (Chest pain, USA, MA, pneumonia, PE, COPD, DKA, ARF, appy, cholecystitis, CVA, Diverticulitis, Homicidal, Suicidal, threat to staff... and all critical care pts) @ -Yes as patient presents with markedly low hemoglobin requiring blood transfusion - Lab Data Result diagrams: 09/30/23 03:44 09/30/23 03:44 Lab Results 09/30/23 09/30/23 09/30/23 Range/Units 03:40 03:44 03:44 WBC 6.3 (3.8-10.6) k/uL RBC 2.68 L (3.80-5.40) m/uL Hgb 7.1 L (11.4-16.0) gm/dL Hct 23.8 L (34.0-46.0) % MCV 89.0 (80.0-100.0) fL MCH 26.6 (25.0-35.0) pg MCHC 29.9 L (31.0-37.0) g/dL RDW 15.1 (11.5-15.5) % Plt Count 361 (150-450) k/uL MPV 7.5 Neutrophils % 76 % Lymphocytes % 14 % Monocytes % 6 % Eosinophils % 3 % Basophils % 1 % Neutrophils # 4.8 (1.3-7.7) k/uL Lymphocytes # 0.9 L (1.0-4.8) k/uL Monocytes # 0.4 (0-1.0) k/uL Eosinophils # 0.2 (0-0.7) k/uL Basophils # 0.0 (0-0.2) k/uL Hypochromasia Marked Poikilocytosis Slight PT (10.0-12.5) sec INR (<1.2) APTT (22.0-30.0) sec Sodium (137-145) mmol/L Potassium (3.5-5.1) mmol/L Chloride (98-107) mmol/L Carbon Dioxide (22-30) mmol/L Anion Gap mmol/L BUN (7-17) mg/dL Creatinine (0.52-1.04) mg/dL Est GFR (CKD-EPI)AfAm (>60 ml/min/1.73 sqM) Est GFR (CKD-EPI)NonAf (>60 ml/min/1.73 sqM) Glucose (74-99) mg/dL Plasma Lactic Acid Franklin (0.7-2.0) mmol/L Calcium (8.4-10.2) mg/dL Magnesium (1.6-2.3) mg/dL Total Bilirubin (0.2-1.3) mg/dL AST (14-36) U/L ALT (4-34) U/L Alkaline Phosphatase (38-126) U/L Troponin I (0.000-0.034) ng/mL Total Protein (6.3-8.2) g/dL Albumin (3.5-5.0) g/dL Stool Occult Blood Negative (Negative) Blood Type A Positive Blood Type Recheck A Pos Bld Type Recheck Status No Antibody Screen NEGATIVE Crossmatch See Detail Spec Expiration Date 10/03/2023 - 233909/30/23 09/30/23 09/30/23 Range/Units 03:44 03:44 03:44 WBC (3.8-10.6) k/uL RBC (3.80-5.40) m/uL Hgb (11.4-16.0) gm/dL Hct (34.0-46.0) % MCV (80.0-100.0) fL MCH (25.0-35.0) pg MCHC (31.0-37.0) g/dL RDW (11.5-15.5) % Plt Count (150-450) k/uL MPV Neutrophils % % Lymphocytes % % Monocytes % % Eosinophils % % Basophils % % Neutrophils # (1.3-7.7) k/uL Lymphocytes # (1.0-4.8) k/uL Monocytes # (0-1.0) k/uL Eosinophils # (0-0.7) k/uL Basophils # (0-0.2) k/uL Hypochromasia Poikilocytosis PT 12.5 (10.0-12.5) sec INR 1.2 H (<1.2) APTT 26.7 (22.0-30.0) sec Sodium 135 L (137-145) mmol/L Potassium 4.6 (3.5-5.1) mmol/L Chloride 101 (98-107) mmol/L Carbon Dioxide 23 (22-30) mmol/L Anion Gap 11 mmol/L BUN 23 H (7-17) mg/dL Creatinine 0.75 (0.52-1.04) mg/dL Est GFR (CKD-EPI)AfAm 88 (>60 ml/min/1.73 sqM) Est GFR (CKD-EPI)NonAf 77 (>60 ml/min/1.73 sqM) Glucose 177 H (74-99) mg/dL Plasma Lactic Acid Franklin 1.2 (0.7-2.0) mmol/L Calcium 8.9 (8.4-10.2) mg/dL Magnesium 1.9 (1.6-2.3) mg/dL Total Bilirubin 0.3 (0.2-1.3) mg/dL AST 29 (14-36) U/L ALT 20 (4-34) U/L Alkaline Phosphatase 73 (38-126) U/L Troponin I (0.000-0.034) ng/mL Total Protein 6.4 (6.3-8.2) g/dL Albumin 3.6 (3.5-5.0) g/dL Stool Occult Blood (Negative) Blood Type Blood Type Recheck Bld Type Recheck Status Antibody Screen Crossmatch Spec Expiration Date 09/30/23 Range/Units 03:44 WBC (3.8-10.6) k/uL RBC (3.80-5.40) m/uL Hgb (11.4-16.0) gm/dL Hct (34.0-46.0) % MCV (80.0-100.0) fL MCH (25.0-35.0) pg MCHC (31.0-37.0) g/dL RDW (11.5-15.5) % Plt Count (150-450) k/uL MPV Neutrophils % % Lymphocytes % % Monocytes % % Eosinophils % % Basophils % % Neutrophils # (1.3-7.7) k/uL Lymphocytes # (1.0-4.8) k/uL Monocytes # (0-1.0) k/uL Eosinophils # (0-0.7) k/uL Basophils # (0-0.2) k/uL Hypochromasia Poikilocytosis PT (10.0-12.5) sec INR (<1.2) APTT (22.0-30.0) sec Sodium (137-145) mmol/L Potassium (3.5-5.1) mmol/L Chloride (98-107) mmol/L Carbon Dioxide (22-30) mmol/L Anion Gap mmol/L BUN (7-17) mg/dL Creatinine (0.52-1.04) mg/dL Est GFR (CKD-EPI)AfAm (>60 ml/min/1.73 sqM) Est GFR (CKD-EPI)NonAf (>60 ml/min/1.73 sqM) Glucose (74-99) mg/dL Plasma Lactic Acid Franklin (0.7-2.0) mmol/L Calcium (8.4-10.2) mg/dL Magnesium (1.6-2.3) mg/dL Total Bilirubin (0.2-1.3) mg/dL AST (14-36) U/L ALT (4-34) U/L Alkaline Phosphatase (38-126) U/L Troponin I <0.012 (0.000-0.034) ng/mL Total Protein (6.3-8.2) g/dL Albumin (3.5-5.0) g/dL Stool Occult Blood (Negative) Blood Type Blood Type Recheck Bld Type Recheck Status Antibody Screen Crossmatch Spec Expiration Date Disposition Clinical Impression: Symptomatic anemia Disposition: HOME SELF-CARE Condition: Stable Instructions (If sedation given, give patient instructions): Anemia (ED) Additional Instructions: Please follow-up with your primary care doctor to recheck your blood counts. Return for any new or worsening symptoms. Is patient prescribed a controlled substance at d/c from ED?: No Referrals: Will Soto MD [Primary Care Provider] - 1-2 days Time of Disposition: 05:14
[2023-09-30 07:36] VITALS: RESP 18
[2023-09-30 08:27] VITALS: BP 142/88; PULSE 87; TEMP 98.4
== END 2023-09-30 08:05 | disposition home or self-care (01) ==
LOC: EC 03:07
DX: D64.9 Anemia, unspecified (principal); E11.9 Type 2 diabetes mellitus without complications; E78.5 Hyperlipidemia, unspecified; I11.0 Hypertensive heart disease with heart failure; I50.9 Heart failure, unspecified; I48.91 Unspecified atrial fibrillation; K21.9 Gastro-esophageal reflux disease without esophagitis; M19.90 Unspecified osteoarthritis, unspecified site; I25.10 Atherosclerotic heart disease of native coronary artery without angina pectoris; F41.9 Anxiety disorder, unspecified; Z88.0 Allergy status to penicillin; Z88.8 Allergy status to other drugs, medicaments and biological substances; Z79.84 Long term (current) use of oral hypoglycemic drugs; Z79.899 Other long term (current) drug therapy; Z79.01 Long term (current) use of anticoagulants
CPT/HCPCS: 36415; 86900; 86901; 80053; 83605; 83735; 84484; 85025; 85610; 85730; 86850; 86920; 82272; 99284; 36430; P9016